=== PATIENT | female | born 1940 | race Caucasian/White ===

== ENCOUNTER 2017-09-07 16:32 | Outpatient (CLI) | payer MEDICARE | END 2017-09-07 16:33 | disposition home or self-care (01) | LOC: BICMAMMO 16:32 | PROVIDERS: ATTEND Family Medicine | DX: Z12.31 Encounter for screening mammogram for malignant neoplasm of breast (principal) | CPT/HCPCS: 77063; 77067 ==

== ENCOUNTER 2018-01-05 13:19 | Outpatient (CLI) | payer MEDICARE | END 2018-01-05 13:20 | disposition home or self-care (01) | LOC: BICMRI 13:19 | PROVIDERS: ATTEND Orthopaedic Surgery | DX: M51.36 Other intervertebral disc degeneration, lumbar region (principal); M48.061 Spinal stenosis, lumbar region without neurogenic claudication; M43.8X4 Other specified deforming dorsopathies, thoracic region; M46.96 Unspecified inflammatory spondylopathy, lumbar region | CPT/HCPCS: 72148 ==

== ENCOUNTER 2018-01-14 13:12 | Emergency (ER) | payer MEDICARE ==
--- NOTE | 2018-01-14 14:18 | RAD ---
SINGLE VIEW OF THE CHEST: Comparison: 02-06-10 History: Pre-operative radiograph. FINDINGS: Single view of the chest shows a normal sized cardiomediastinal silhouette. There is no evidence of c onsolidation, mass, or pleural effusion. Bone anchors are seen in the right shoulder from prior right shoulder surgery. IMPRESSION: No evidence of acute cardiopulmonary disease. POS: LILLIANH
[2018-01-14 14:20] LABS: #Basophils 0.1 thou/uL (0.0-0.2); #Eosinphils 0.2 thou/uL (0.0-0.7); #Lymphocytes 2.4 thou/uL (1.20-3.40); #Monocytes 0.6 thou/uL (0.11-0.59); #Neutrophils 3.9 thou/uL (1.40-6.50); %Basophils 0.7 % (0.0-1.0); %Eosinophils 3.4 % (0.0-10.0); %Lymphocytes 33.3 % (21.0-51.0); %Monocytes 7.7 % (0.0-10.0); %Neutrophils 54.9 % (42.0-75.0); Hemoglobin 13.5 g/dL (12.0-16.0); Mean Corpuscular HGB CONC 34.1 g/dL (32.0-36.0); Mean Corpuscular Hemoglobin 31.5 pg (27.0-31.0); Mean Corpuscular Volume 92.3 fl (81.0-99.0); Mean Platelet Volume 7.2 fL (7.4-10.4); Platelet Count 210 thou/uL (130-400); RBC Distribution Width 11.5 % (11.5-14.5); Red Blood Cell (RBC) Count 4.28 mill/uL (4.20-5.40); White Blood Cell (WBC) Count 7.1 thou/uL (4.8-10.8)
[2018-01-14 14:43] LABS: ALT (SGPT) 8 U/L (8-55); AST (SGOT) 19 U/L (5-34); Albumin 3.6 g/dL (3.4-4.8); Alkaline Phosphatase 58 U/L (40-150); Anion Gap 16 mmol/L (10-20); BUN (Urea Nitrogen) 24 mg/dL (9.8-20.1); Bilirubin, Total 0.6 mg/dL (0.2-1.2); Calc. Creatinine Clearance 0 mL/min (70-130); Calcium 9.7 mg/dL (7.8-10.44); Carbon Dioxide 27 mmol/L (23-31); Chloride 101 mmol/L (98-107); Estimated GFR-MDRD 32; Globulin 3.5 g/dL (2.4-3.5); Glucose 104 mg/dL (83-110); Potassium 4.7 mmol/L (3.5-5.1); Protein, Total 7.1 g/dL (6.0-8.3); Sodium 139 mmol/L (136-145)
[2018-01-14 15:33] LABS: Bilirubin Negative (Negative); Blood, Urine Negative (Negative); Clarity CLOUDY (Clear); Glucose, Urine (Dipstick) Negative (Negative); Leukocyte Small (Negative); Nitrite Negative (Negative); Protein, Urine (Dipstick) Negative (Neg-Trace); Specific Gravity, Urine 1.011 (1.002-1.036); Urobilinogen 0.2 mg/dL (0.2-1.0); pH, Urine 5.5 (5.0-9.0)
[2018-01-14 15:35] LABS: Bacteria/HPF 2+ HPF (None Seen); Hyaline Casts/LPF 0-3 HYALINE CAST LPF (0-3 Hyaline); Pathc Cast-AUWi Flag 0.72 (0-2.49); RBC/HPF 0-3 HPF (0-3); Squamous Epithelial 0-3 HPF (0-3)
== END 2018-01-14 16:15 | disposition home or self-care (01) ==
LOC: ERS 13:12
DX: N39.0 Urinary tract infection, site not specified (principal); E10.9 Type 1 diabetes mellitus without complications
CPT/HCPCS: 36415; 71045; 80053; 81003; 81015; 85025; 87077; 87086

== ENCOUNTER 2018-07-29 14:52 | Outpatient (CLI) | payer MEDICARE ==
--- NOTE | 2018-07-29 15:42 | RAD ---
CERVICAL SPINE SERIES THREE VIEWS: 07/29/18 HISTORY: Neck pain, cervical radiculopathy. The bones appear demineralized. Vertebral bodies are normal in height. There appears to be mild disc narrowing at C6-7. There are degenerative facet changes. No soft tissue swelling noted. Postoperative changes are noted with surgical clips along the right side of the neck. IMPRESSION: Generalized bone demineralization. Mild arthritic changes of the cervical spine. POS: Christofer
--- NOTE | 2018-07-29 15:43 | RAD ---
LUMBAR SPINE SERIES 2 VIEWS: HISTORY: Fall, back pain, balance difficulties. FINDINGS: The bones are demineralized. There are compression changes involving the superior end plate of T12 w ith approximately 40% compression. There is very minimal bony retropulsion of the posterior superior margin of the vertebral body associated with this. The lumbar vertebral bodies are normal in height . Moderate disk narrowing at the L4-5 level is noted and associated with approximately 8 mm spondylo listhesis. There are degenerative facet changes present. Mild disk narrowing is seen at L5-S1. IMPRESSION: 1. Compression changes involving the superior end plate of T12 and also some minimal changes of T11. In reviewing the MRI study of 01/05/2018, this appears fairly stable in appearance. 2. Arthritic changes of the lower lumbar spine with moderate disk narrowing at L4-5 and approximatel y 8 mm of spondylolisthesis. POS: [facility]
--- NOTE | 2018-07-29 16:30 | MRI ---
CERVICAL SPINE MRI NONCONTRAST: 07/29/18 HISTORY: Cervical radiculopathy. Reference made to 03/28/10 exam. FINDINGS: Multilevel cervical spine disc degenerative disease is present. There is degenerative hypertrophy of the C1-2 level. Motion artifact throughout the exam does limit the evaluation. No acute marrow edema, compression deformity or significant subluxation. No high grade central canal stenosis at C1-2. C2-3: Mild narrowing of the left neural foramen due to uncinate process and facet hypertrophy. No sig nificant stenosis of the central canal or right neural foramen. C3-4: There is a disc osteophyte with mild to moderate central canal stenosis and mild ventral cord e ffacement. There is bilateral uncinate process and facet hypertrophy with mild bilateral neural roe inal narrowing. C4-5: Mild to moderate central canal stenosis, mild ventral flattening due to broad based disc osteop hyte. There is bilateral uncinate process and facet hypertrophy with mild to moderate bilateral neura l foraminal narrowing. C5-6: Moderate to severe central canal stenosis is present due to broad based osteophyte ridge. There is bilateral moderate to severe neural foraminal stenosis. C6-7: Broad based osteophyte with mild central canal stenosis. There is mild ventral cord effacement. Bilateral uncinate process and facet hypertrophy results in moderate biforaminal stenosis. C7-T1: There is mild ventral CSF effacement due to disc osteophyte. Limited evaluation due to patient motion at this level without a significant degree of foraminal stenosis, evident. Evaluation of the cervical spinal cord signal is limited by the degree of patient motion, although no definitive focal intrinsic cord signal abnormality of significance is seen. IMPRESSION: Moderate multilevel degenerative change throughout the cervical spine with multilevel central canal a nd neural foraminal stenosis as well as areas of cord effacement as discussed above. When compared to 2010 exam, there has been interval progression of degenerative change. POS: [facility]
--- NOTE | 2018-07-29 16:38 | MRI ---
MRI THORACIC SPINE NONCONTRAST: 07/29/18 HISTORY: Falls. Back pain with radiculopathy. FINDINGS: There is desiccation of all the intervertebral discs and scattered discogenic end plate changes. Prom inent degenerative changes of the cervical spine are detailed on the separate exam. Throughout the thoracic spine from the T1-2 level to the T9-10 level, there is mild osteophytosis of the vertebral bodies and facets. No focal disc herniation or nerve root compression. T10-11: Chronic mild depression of the T11 superior end plate and compression of the T10 inferior end plate. Discogenic end plate changes are most pronounced at this level. Posterior osteophyte/disc com plex and mild retropulsion of the T11 superior end plate efface the ventral aspect of the thecal sac but do not significantly compress the conus medullaris. The neural foramina remain patent. T11-12: Minimal degenerative spondylolisthesis. Chronic compression of the T 12 superior end plate wi th loss of height by approximately 40%. No residual edema. Mild posterior osteophyte/disc complex. De generative changes of the facets. Central canal and neural foramina are patent. IMPRESSION: Mild chronic end plate compressions involving T10, T11, and T12, as detailed above. No residual edema . Multilevel mild degenerative changes without focal disc herniation or nerve root compression. POS: [facility]
== END 2018-07-29 14:53 | disposition home or self-care (01) ==
LOC: TBSIIMAG 14:52
PROVIDERS: ATTEND Surgery
DX: M47.22 Other spondylosis with radiculopathy, cervical region (principal); R29.6 Repeated falls; R26.89 Other abnormalities of gait and mobility; M47.816 Spondylosis without myelopathy or radiculopathy, lumbar region; M43.16 Spondylolisthesis, lumbar region; M48.061 Spinal stenosis, lumbar region without neurogenic claudication; M47.814 Spondylosis without myelopathy or radiculopathy, thoracic region; M48.02 Spinal stenosis, cervical region
CPT/HCPCS: 72040; 72100; 72141; 72146

== ENCOUNTER 2018-11-24 09:04 | Outpatient (CLI) | payer MEDICARE ==
[2018-11-24] MEDS ORDERED: Iopamidol 370 76% 100 ML VIAL ONE (11:01)
--- NOTE | 2018-11-24 13:14 | CT ---
CT arteriogram abdomen and pelvis with IV contrast and 3-D imaging CT arteriogram runoff bilateral lower extremity with IV contrast and 3-D imaging HISTORY: Bilateral leg pain. Claudication. Vascular disease. FINDINGS: Prominent calcification throughout the aorta and central arterial structures. Less than 50% stenosis of each renal artery. Flow into each iliac system. Scattered plaque, mostly calcified, is present along the course of each femoral artery. No focal sten oses greater than 50%. Three-vessel runoff to each lower leg. Mild atelectasis and scarring at each lung base. Degenerative changes lumbar spine and hips. Postoper ative changes lower anterior abdominal wall. IMPRESSION: Atherosclerosis. No significant stenoses are apparent.
== END 2018-11-24 09:05 | disposition home or self-care (01) ==
LOC: CT 09:04
PROVIDERS: ATTEND Family Medicine
DX: I73.9 Peripheral vascular disease, unspecified (principal); I70.0 Atherosclerosis of aorta
CPT/HCPCS: 75635; 82565; Q9967

== ENCOUNTER 2020-04-21 13:27 | Inpatient (IN) | payer MEDICARE ==
[2020-04-21] MEDS ORDERED: Cefepime 2 GM VIAL ONE (14:16)
[2020-04-21] MEDS ORDERED: Sodium Chloride 0.9% 100 ML ONE (14:16)
[2020-04-21 14:18] LABS: Base Excess-Venous 1.5 mmol/L (-2.0 to 3.0); Bicarbonate (HCO3v) 26.3 mmol/L (22.0-28.0); CO2 Tension (PvCO2) 41.4 mmHg (40.0-50.0); Calcium, Ionized 1.05 mmol/L (See Comments:); Chloride 102 mmol/L (98-107); Hemoglobin - Calc 13.6 g/dL (12.0-16.0); Potassium 4.4 mmol/L (3.5-5.1); Sodium 138 mmol/L (138-145); T. Carbon Dioxide 27.6 mmol/L (22.0-28.0); vO2 Saturation-calc 72.5 % (60.0-85.0)
[2020-04-21 14:27] LABS: #Lymphocytes 1.3 thou/uL (1.20-3.40); #Monocytes 0.5 thou/uL (0.11-0.59); #Neutrophils 6.1 thou/uL (1.40-6.50); %Basophils 0.3 % (0.0-1.0); %Eosinophils 0.4 % (0.0-10.0); %Lymphocytes 16.6 % (21.0-51.0); %Monocytes 6.1 % (0.0-10.0); %Neutrophils 76.5 % (42.0-75.0); Mean Corpuscular HGB CONC 33.3 g/dL (32.0-36.0); Mean Corpuscular Hemoglobin 30.5 pg (27.0-31.0); Mean Corpuscular Volume 91.7 fL (78.0-98.0); Mean Platelet Volume 8.6 fL (7.4-10.4); Platelet Count 161 thou/uL (130-400); Red Blood Cell (RBC) Count 4.26 mill/uL (4.20-5.40)
--- NOTE | 2020-04-21 14:31 | RAD ---
EXAM: CHEST ONE VIEW HISTORY: Altered mental status. COMPARISON: 01/14/2018 FINDINGS: Patient is rotated to the right which accentuates cardiac silhouette and mediastinal structures. Pulm onary vasculature does appear to be within normal limits. Lungs are clear without consolidation or pleural fluid identified. Surgical clips again overlie the right neck. There has been no interval edwin nge from prior study. IMPRESSION: No acute cardiopulmonary process.
[2020-04-21 14:46] LABS: ALT (SGPT) 11 U/L (8-55); AST (SGOT) 21 U/L (5-34); Albumin 3.2 g/dL (3.4-4.8); Alkaline Phosphatase 55 U/L (40-110); Anion Gap 16 mmol/L (10-20); BUN (Urea Nitrogen) 19 mg/dL (9.8-20.1); Bilirubin, Total 0.5 mg/dL (0.2-1.2); Calc. Creatinine Clearance 0 mL/min (70-130); Calcium 9.2 mg/dL (7.8-10.44); Carbon Dioxide 24 mmol/L (23-31); Chloride 100 mmol/L (98-107); Estimated GFR-MDRD 57; Globulin 3.3 g/dL (2.4-3.5); Glucose 67 mg/dL (83-110); Lipase 13 U/L (8-78); Potassium 4.3 mmol/L (3.5-5.1); Protein, Total 6.5 g/dL (6.0-8.3); Sodium 136 mmol/L (136-145)
[2020-04-21] MEDS ORDERED: Dextrose 50% Abboject 50 ML SYRINGE ONE ×2 (15:46→19:11)
[2020-04-21] MEDS ORDERED: Vancomycin 1.5 GRAM/300 ML BAG 1.5 GM in Premix Bag 1 BAG IVPB SCH (16:00)
[2020-04-21 17:23] LABS: Lactic Acid 2.1 mmol/L (0.5-2.2)
--- NOTE | 2020-04-21 17:27 | CT ---
NONCONTRAST CT HEAD: 04/21/20 HISTORY: Altered mental status. COMPARISON: None. FINDINGS: There are scattered areas of diminished attenuation in the periventricular white matter, greater in t he right cerebral hemisphere which is nonspecific but likely attributable to chronic small vessel isc hemic changes. There is no evidence of an acute cortical infarction, hemorrhage, mass effect, or midl ine shift. Small low density focus is seen in the left thalamus likely attributable to a lacunar infa rction of indeterminate age. The ventricular system is normal in size, shape and position. Mild cerebral volume loss is present no t unexpected for the patient's age. There is a small low density focus in the left cerebellar hemisph ere likely related to remote infarction. Small mucous retention cyst is seen in the right maxillary antrum. Mastoid air cells are clear. Calvarial structures have a normal appearance. IMPRESSION: No acute intracranial abnormality is demonstrated. POS: [facility]
[2020-04-21 17:51] LABS: Bilirubin Negative (Negative); Blood, Urine Negative (Negative); Clarity Clear (Clear); Glucose, Urine (Dipstick) 500 mg/dL (Negative); Ketone, Urine Negative (Negative); Leukocyte Negative Leu/uL (Negative); Nitrite Negative (Negative); Protein, Urine (Dipstick) Negative (Neg-Trace); Specific Gravity, Urine 1.004 (1.002-1.036); Urobilinogen Normal mg/dL (Less than 2)
[2020-04-21] MEDS ORDERED: Acetaminophen 325 MG TAB PO PRN (20:15)
[2020-04-21 20:32] VITALS: BMI 30.3
[2020-04-21] MEDS ORDERED: hydrALAZINE 20 MG/ML VIAL SLOW IVP PRN (20:38)
[2020-04-21] MEDS ORDERED: Dextrose 5% in Water 1,000 ML IV PRN (20:38)
[2020-04-21] MEDS ORDERED: Dextrose 5 % And 0.9 % NaCl 1,000 ML IV SCH (20:38)
[2020-04-21] MEDS ORDERED: Ondansetron ODT 4 MG TAB SL PRN (20:38)
[2020-04-21] MEDS ORDERED: Ondansetron PF 4 MG/2 ML Vial IVP PRN (20:38)
[2020-04-21] MEDS ORDERED: Acetaminophen 500 MG TAB PO PRN (20:38)
[2020-04-21] MEDS: Famotidine 20 MG TAB PO SCH (21:45)
[2020-04-21] MEDS: Polyvinyl Alcohol 1.4%/Povidone 0.6% Opth Drops EA EYE PRN (23:57)
[2020-04-22] MEDS: Dextrose 50% Abboject 50 ML SYRINGE SLOW IVP PRN ×7 (00:11→13:50)
--- NOTE | 2020-04-22 00:46 | HP ---
PRIMARY CARE PROVIDER: Dr. Erick Donovan. CHIEF COMPLAINT: Hypoglycemia and altered mental status. HISTORY OF PRESENT ILLNESS: This is a 79-year-old female, who presents to [facility] Emergency Department in transport by EMS personnel after EMS was notified of patient having altered mentation, abdominal pain, and nausea. Patient apparently was discovered with a blood glucose of 17 and received an amp of D50. Patient also received D10 infusion, at which point, the glucose increased over 200. Patient received a second bag of D10 after glucose monitoring showed a level in the 60s. Patient recovered with glucose administration and was able to tolerate p.o. intake. in the emergency room. The patient also received vancomycin and cefepime in the emergency room after initial concern for potential sepsis picture. However, no focal source was identified. Patient also was initiated on D5 NS infusion with stabilization of glucose values in the emergency room. Patient states she has had approximately two other previous episodes involving altered mentation and feeling generally "out of it." Patient denies any recent change to her insulin regimen which includes an insulin 75/25 mixture 62 units in the morning and 42 units in the evening. Patient denied any recent illness, fever, exposure history, or infections to her knowledge. Patient denied any recent diarrhea, nausea, or vomiting. PAST MEDICAL HISTORY: 1. Diabetes mellitus, type 2, insulin requiring, diagnosed in her 20s. 2. Coronary artery disease, status post cardiac stent placement. 3. Urinary incontinence. 4. Hypertension. 5. Hyperlipidemia. 6. Hypothyroidism. 7. Peripheral neuropathy. PAST SURGICAL HISTORY: 1. Status post cardiac stent placement. 2. Status post right knee surgery. 3. Status post ear surgery. 4. Status post dilation and curettage. 5. Status post appendectomy. 6. Status post hysterectomy. 7. Status post bladder suspension. CURRENT MEDICATIONS: 1. Ranolazine 1000 mg p.o. b.i.d. 2. Myrbetriq 25 mg p.o. daily. 3. Omeprazole 20 mg p.o. daily. 4. Hydroxyzine 25 mg p.o. t.i.d. p.r.n. 5. Losartan 5 mg p.o. daily. 6. Rosuvastatin mg p.o. daily. 7. Isosorbide mononitrate 30 mg p.o. daily. 8. Fenofibrate 180 mg p.o. daily. 9. Metoprolol tartrate 50 mg p.o. daily. 10. Levothyroxine 100 mcg p.o. daily. 11. Gabapentin 300 mg one to two tablets p.o. daily. 12. Humulin 75/25, 62 units in the a.m. and 42 units at bedtime. ALLERGIES: CODEINE, MORPHINE, AND PENICILLIN. FAMILY HISTORY: Positive for coronary artery disease and diabetes mellitus. SOCIAL HISTORY: and resides in the [facility]. No current alcohol, tobacco, or illicit drug use. Functional of all activities of daily living. REVIEW OF SYSTEMS: CONSTITUTIONAL: Negative for weight loss or gain, ability to conduct usual activities. SKIN: Negative for rash, itching. EYES: Negative for double vision, pain. ENT/MOUTH: Negative for nose bleeding, neck stiffness, pain, tenderness. CARDIOVASCULAR: Negative for palpitations, dyspnea on exertion, orthopnea. RESPIRATORY: Negative for shortness of breath, wheezing, cough, hemoptysis, fever or night sweats. GASTROINTESTINAL: Negative for poor appetite, abdominal pain, heartburn, nausea, vomiting, constipation, or diarrhea. GENITOURINARY: Negative for urgency, frequency, dysuria, nocturia. MUSCULOSKELETAL: Negative for pain, swelling. NEUROLOGIC/PSYCHIATRIC: Negative for anxiety, depression. ALLERGY/IMMUNOLOGIC: Negative for skin rash, bleeding tendency. Otherwise, negative, except as stated per HPI. PHYSICAL EXAMINATION: VITAL SIGNS: Blood pressure 131/51, pulse 66, respiratory rate is 14, temperature is 95.7 degrees Fahrenheit rectally, and O2 saturation 100% on room air. GENERAL APPEARANCE: This is a 79-year-old female, alert and responsive, in no acute distress. HEENT: Pupils are equal, round, and reactive to light and accommodation. Extraocular muscles are intact. No scleral icterus. No conjunctival injection. Nares are patent. OP is clear. Oral mucosa dry. NECK: Supple. No cervical adenopathy. No thyromegaly. No carotid bruits. No JVD appreciated. Cervical spine with full active and passive range of motion. No meningeal signs noted. CHEST: Lungs are clear to auscultation bilaterally. CARDIOVASCULAR EXAM: S1, S2 without noted murmur, rub, or gallop. ABDOMEN: Rounded, soft, nontender, and nondistended. Bowel sounds are positive in all 4 quadrants. There is no hepatosplenomegaly. No abdominal bruits. No rebound or guarding appreciated. EXTREMITIES: Warm and dry with fair turgor. No clubbing, cyanosis, or asymmetric edema appreciated. Pulses palpable distally at the dorsalis pedis, posterior tibial, and popliteal arteries bilaterally. Capillary refill less than 2 seconds. NEUROLOGIC: Cranial nerves 2 through 12 are grossly intact. No focal or lateralizing signs appreciated. Patient not observed ambulatory during this exam. PERTINENT LABORATORY AND X-RAY FINDINGS: Portable chest x-ray dated 04/21/2020 showed no acute cardiopulmonary process. CT of the brain without contrast dated 04/21/2020 showed chronic changes without acute process. EKG dated 04/21/2020 by my interpretation shows sinus mechanism with heart rates in the 60s. Normal R-wave progression noted in the precordial leads. Left axis deviation and right bundle-branch pattern noted. ASSESSMENT/PLAN: 1. Acute metabolic encephalopathy secondary to hypoglycemia. Patient will be admitted to the telemetry unit. We will continue serial Accu-Cheks q.4 hours. Suspect patient's insulin regimen will be adjusted during the hospital course. Check A1c level in the a.m. Patient may benefit from continuous glucose monitor after discharge. Check TSH and free T4 level in the a.m. 2. Diabetes mellitus, type 2, insulin requiring. We will continue serial Accu-Cheks q.4 hours x6. ADA diet when tolerating p.o. intake. Check A1c level in the a.m. Hold home insulin regimen. Consider outpatient referral for Endocrinology consultation. 3. Hypothyroidism. Check TSH and free T4 level in the a.m. Resume home levothyroxine at 100 mcg daily. 4. Hypertension. Resume home blood pressure regimen and monitor clinical response. 5. Prophylaxis. SCDs while in bed. Pepcid 20 mg p.o. b.i.d. 6. Code status. Full. Surrogate medical decision maker is the patient's spouse. Job ID: [id number]
[2020-04-22] MEDS ORDERED: Cefepime 2 GM in Sodium Chloride 0.9% 100 ML IVPB SCH (02:00)
[2020-04-22 04:06] LABS: #Eosinphils 0.2 thou/uL (0.0-0.7); #Lymphocytes 2.3 thou/uL (1.20-3.40); #Monocytes 0.5 thou/uL (0.11-0.59); #Neutrophils 3.3 thou/uL (1.40-6.50); %Basophils 0.1 % (0.0-1.0); %Eosinophils 3.7 % (0.0-10.0); %Lymphocytes 36.9 % (21.0-51.0); %Monocytes 7.5 % (0.0-10.0); %Neutrophils 51.9 % (42.0-75.0); Hemoglobin 10.9 g/dL (12.0-16.0); Mean Corpuscular HGB CONC 32.8 g/dL (32.0-36.0); Mean Corpuscular Hemoglobin 30.3 pg (27.0-31.0); Mean Corpuscular Volume 92.6 fL (78.0-98.0); Mean Platelet Volume 9.1 fL (7.4-10.4); Platelet Count 136 thou/uL (130-400); RBC Distribution Width 11.2 % (11.5-14.5); Red Blood Cell (RBC) Count 3.59 mill/uL (4.20-5.40); White Blood Cell (WBC) Count 6.3 thou/uL (4.8-10.8)
[2020-04-22 04:15] LABS: Hemoglobin A1c 7.8 % (4.0-6.0)
[2020-04-22 04:32] LABS: Anion Gap 11 mmol/L (10-20); BUN (Urea Nitrogen) 14 mg/dL (9.8-20.1); Calc. Creatinine Clearance 68 mL/min (70-130); Calcium 8.4 mg/dL (7.8-10.44); Carbon Dioxide 24 mmol/L (23-31); Chloride 111 mmol/L (98-107); Estimated GFR-MDRD 69; Glucose 69 mg/dL (83-110); Potassium 4.3 mmol/L (3.5-5.1); Sodium 142 mmol/L (136-145)
[2020-04-22 04:46] LABS: Thyroid Stimulating Hormone 0.0044 uIU/mL (0.35-4.94)
[2020-04-22 05:10] LABS: Free T4 (Free Thyroxine) 1.28 ng/dL (0.70-1.48)
[2020-04-22] MEDS ORDERED: Dextrose 10% in Water 1,000 ML IV SCH (06:00)
[2020-04-22] MEDS ORDERED: methylPREDNISolone Sod Succ/PF 125 MG/2 ML VIAL IVP SCH (08:15)
[2020-04-22] MEDS: Famotidine 20 MG TAB PO SCH ×2 (08:47→20:38)
--- NOTE | 2020-04-22 10:34 | PDOC.HOSPP ---
- Subjective Encounter Date: 04/22/20 Encounter Time: 10:25 Subjective: f/u for hypoglycemia suspected due to home insulin regimen. Nursing reports pt received several amps of D50 overnight and continues on D10NS IVF's. Some confusion and trembling reported by nursing but pt states she just has some tremors on the right hand and feels week. Tolerating breakfast currently. - Objective Vital Signs & Weight: Vital Signs (12 hours) Temp Pulse Resp BP Pulse Ox 04/22/20 03:17 97.9 F 73 20 127/57 L 97 04/22/20 00:00 92 188/100 H Weight Weight 165 lb 14.4 oz I&O: 04/21/20 04/22/20 04/23/20 06:59 06:59 06:59 Intake Total 1700 Output Total 1000 Balance 700 Result Diagrams: 04/22/20 03:40 04/22/20 03:40 Additional Labs: Accuchecks 04/22/20 04/21/20 04/21/20 07:16 20:17 19:44 POC Glucose 68 L 164 H 189 H 04/21/20 04/21/20 18:03 13:45 POC Glucose 62 L 121 H Microbiology 04/21/20 14:14 Venous blood - Right Arm Blood Culture - Preliminary Specimen has been received and culture in progress. No Growth to date. 04/21/20 14:14 Venous blood - Left Hand Blood Culture - Preliminary Specimen has been received and culture in progress. No Growth to date. Laboratory Tests 04/21/20 04/22/20 04/22/20 14:10 03:40 03:40 Hgb 13.0 Hct 39.1 Neutrophils % 76.5 H Hemoglobin A1c 7.8 H Free T4 1.28 TSH 3rd Generation 0.0044 L 04/22/20 03:40 Hgb Hct Neutrophils % 51.9 Hemoglobin A1c Free T4 TSH 3rd Generation Radiology Reviewed by me: Yes (CT brain - no acute process) EKG Reviewed by me: Yes (Tele - SR) Hospitalist ROS - Medication Medications: Active Medications Generic Name Dose Route Start Last Admin Trade Name Freq PRN Reason Stop Dose Admin Dextrose/Water 25 gm 04/21/20 20:38 04/22/20 08:41 Dextrose 50% Abboject 50 Ml Syringe SLOW IVP 25 gm PRN PRN Administration Hypoglycemia Famotidine 20 mg 04/21/20 21:00 04/22/20 08:47 Famotidine 20 Mg Tab PO 20 mg BID NICHOLE Administration Dextrose/Water 1,000 mls @ 75 mls/hr 04/22/20 06:00 04/22/20 06:06 Dextrose 10% In Water IV 1,000 mls .[id number] NICHOLE Administration Methylprednisolone Sodium Succinate 125 mg 04/22/20 08:15 04/22/20 08:43 Methylprednisolone Sod Succ/Pf 125 Mg/2 Ml Vial IVP 04/22/20 11:00 125 mg NOW NICHOLE Administration Polyvinyl Alcohol/Povidone 0 each 04/21/20 22:14 04/21/20 23:57 Polyvinyl Alcohol 1.4%/Povidone 0.6% Opth Drops EA EYE 1 each Q4H PRN Administration Dry Eyes - Exam General Appearance: awake alert Eye: PERRL, anicteric sclera ENT: normocephalic atraumatic, no oropharyngeal lesions Neck: supple, symmetric, no JVD, no thyromegaly, no lymphadenopathy Heart: RRR, no gallops, no rubs, normal peripheral pulses Heart - other findings: S1, S2 Respiratory: CTAB, no wheezes, no rales, no ronchi, normal chest expansion Gastrointestinal: soft, non-tender, non-distended, normal bowel sounds, no palpable masses Extremities: no cyanosis, no clubbing, no edema Skin: normal turgor, no lesions Neurological: cranial nerve grossly intact, no new deficit Neurological - other findings: tremor of hands noted Musculoskeletal: generalized weakness Psychiatric: oriented to person, oriented to place Hosp A/P (1) Hypoglycemia Code(s): E16.2 - HYPOGLYCEMIA, UNSPECIFIED Status: Acute Plan: Suspected due to insulin exposure in context of DM II, Solumedrol 125mg IV x 1 now then 40mg IV q6h, avoid all insulin, serial accuchecks, D10 NS IVF's (2) Acute metabolic encephalopathy due to hypoglycemia Code(s): G93.41 - METABOLIC ENCEPHALOPATHY; E16.2 - HYPOGLYCEMIA, UNSPECIFIED Status: Acute Plan: Improved, continue close monitoring given recurrent hypoglycemia (3) Diabetes mellitus, type II, insulin dependent Code(s): E11.9 - TYPE 2 DIABETES MELLITUS WITHOUT COMPLICATIONS; Z79.4 - CORN CUTTER (CURRENT) USE OF INSULIN Status: Chronic Plan: Hold all insulin given hypoglycemia, serial accuchecks, adjust home regimen prior to d/c (4) HTN (hypertension) Code(s): I10 - ESSENTIAL (PRIMARY) HYPERTENSION Status: Chronic Qualifiers: Hypertension type: essential hypertension Qualified Code(s): I10 - Essential (primary) hypertension Plan: Labile, resume home BP regimen, serial monitoring (5) Hypothyroid Code(s): E03.9 - HYPOTHYROIDISM, UNSPECIFIED Status: Chronic Plan: TSH suppressed but FT4 level normal, resume home Synthroid - Plan 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
[2020-04-22 11:40] LABS: Anion Gap 14 mmol/L (10-20); BUN (Urea Nitrogen) 12 mg/dL (9.8-20.1); Calc. Creatinine Clearance 64 mL/min (70-130); Calcium 8.7 mg/dL (7.8-10.44); Carbon Dioxide 21 mmol/L (23-31); Chloride 108 mmol/L (98-107); Estimated GFR-MDRD 65; Potassium 4.2 mmol/L (3.5-5.1); Sodium 139 mmol/L (136-145)
[2020-04-22 11:44] LABS: Glucose 47 mg/dL (83-110)
[2020-04-22] MEDS: methylPREDNISolone Sod Succ 40 MG VIAL IVP SCH ×3 (12:05→23:56)
[2020-04-22 12:26] LABS: SARS-CoV-2 MS2 Positive; SARS-CoV-2 N Gene Negative; SARS-CoV-2 S Gene Negative; SARS-CoV-2 by NAA Not Detected (NotDetected); SARS-CoV-2 orf1ab Negative
[2020-04-22] MEDS ORDERED: Losartan 25 MG TAB PO SCH (12:30)
[2020-04-22] MEDS: hydrOXYzine 25 MG TAB PO SCH ×2 (17:19→20:38)
[2020-04-22] MEDS: Dextrose 10% in Water 1,000 ML IV SCH (17:20)
[2020-04-22] MEDS: Gabapentin 300 MG CAP PO SCH (20:39)
[2020-04-22] MEDS: Polyvinyl Alcohol 1.4%/Povidone 0.6% Opth Drops EA EYE PRN (20:39)
[2020-04-22] MEDS: HumaLOG 300 UNITS/3 ML VIAL SC PRN ×2 (20:52→22:00)
[2020-04-23] MEDS: Dextrose 10% in Water 1,000 ML IV SCH (04:01)
[2020-04-23] MEDS: HumaLOG 300 UNITS/3 ML VIAL SC PRN ×4 (04:05→20:16)
[2020-04-23 04:53] LABS: Anion Gap 15 mmol/L (10-20); BUN (Urea Nitrogen) 13 mg/dL (9.8-20.1); Calc. Creatinine Clearance 51 mL/min (70-130); Calcium 8.6 mg/dL (7.8-10.44); Carbon Dioxide 25 mmol/L (23-31); Chloride 102 mmol/L (98-107); Estimated GFR-MDRD 50; Glucose 257 mg/dL (83-110); Potassium 4.6 mmol/L (3.5-5.1); Sodium 137 mmol/L (136-145)
[2020-04-23 05:21] LABS: #Lymphocytes 1.2 thou/uL (1.20-3.40); #Monocytes 0.1 thou/uL (0.11-0.59); #Neutrophils 6.9 thou/uL (1.40-6.50); %Eosinophils 0.3 % (0.0-10.0); %Lymphocytes 14.6 % (21.0-51.0); %Monocytes 1.2 % (0.0-10.0); %Neutrophils 83.9 % (42.0-75.0); Hemoglobin 10.8 g/dL (12.0-16.0); Mean Corpuscular HGB CONC 32.3 g/dL (32.0-36.0); Mean Corpuscular Hemoglobin 29.7 pg (27.0-31.0); Mean Corpuscular Volume 92.2 fL (78.0-98.0); Mean Platelet Volume 9.5 fL (7.4-10.4); Platelet Count 114 thou/uL (130-400); Platelet Morphology Comment Appears Decreased; RBC Distribution Width 11.1 % (11.5-14.5); Red Blood Cell (RBC) Count 3.62 mill/uL (4.20-5.40); White Blood Cell (WBC) Count 8.3 thou/uL (4.8-10.8)
[2020-04-23] MEDS: Levothyroxine Sodium 100 MCG TAB PO SCH (05:42)
[2020-04-23] MEDS: methylPREDNISolone Sod Succ 40 MG VIAL IVP SCH (05:42)
[2020-04-23] MEDS: Metoprolol Tartrate 50 MG TAB PO SCH (08:37)
[2020-04-23] MEDS: Famotidine 20 MG TAB PO SCH ×2 (08:37→20:12)
[2020-04-23] MEDS: Polyvinyl Alcohol 1.4%/Povidone 0.6% Opth Drops EA EYE PRN (08:39)
[2020-04-23] MEDS: hydrOXYzine 25 MG TAB PO SCH ×3 (08:43→20:13)
[2020-04-23] MEDS: Losartan 25 MG TAB PO SCH (08:43)
--- NOTE | 2020-04-23 11:12 | PDOC.HOSPP ---
- Subjective Encounter Date: 04/23/20 Encounter Time: 11:10 Subjective: f/u for persistent hypoglycemia now resolving. Glucose trending in the 200 range currently receiving D10 NS and Solumedrol. No new complaints currently. - Objective Vital Signs & Weight: Vital Signs (12 hours) Temp Pulse Ox 04/23/20 11:03 98.0 F 04/23/20 08:00 95 04/23/20 07:18 97.8 F 04/23/20 04:00 97 F L 04/22/20 23:59 97.2 F L Weight Weight 165 lb 14.4 oz Most Recent Monitor Data Heart Rate from ECG 73 NIBP 144/51 NIBP BP-Mean 82 Respiration from ECG 20 SpO2 99 I&O: 04/22/20 04/23/20 04/24/20 06:59 06:59 06:59 Intake Total 1700 2400 Output Total 1000 1300 Balance 700 1100 Result Diagrams: 04/23/20 04:01 04/23/20 04:01 Additional Labs: Accuchecks 04/23/20 04/23/20 04/23/20 10:16 07:58 05:45 POC Glucose 207 H 149 H 332 H 04/23/20 04/23/20 04/23/20 04:09 02:13 00:02 POC Glucose 257 H 168 H 138 H 04/22/20 04/22/20 04/22/20 22:00 18:33 15:45 POC Glucose 320 H 141 H 105 H Microbiology 04/21/20 14:14 Venous blood - Right Arm Blood Culture - Preliminary Specimen has been received and culture in progress. No Growth to date. 04/21/20 14:14 Venous blood - Left Hand Blood Culture - Preliminary Specimen has been received and culture in progress. No Growth to date. Laboratory Tests 04/21/20 04/22/20 04/22/20 14:10 03:40 03:40 Hgb 13.0 Hct 39.1 Neutrophils % 76.5 H Hemoglobin A1c 7.8 H Free T4 1.28 TSH 3rd Generation 0.0044 L 04/22/20 03:40 Hgb Hct Neutrophils % 51.9 Hemoglobin A1c Free T4 TSH 3rd Generation EKG Reviewed by me: Yes (Tele - SR) Hospitalist ROS - Medication Medications: Active Medications Generic Name Dose Route Start Last Admin Trade Name Freq PRN Reason Stop Dose Admin Dextrose/Water 25 gm 04/21/20 20:38 04/22/20 13:50 Dextrose 50% Abboject 50 Ml Syringe SLOW IVP 25 gm PRN PRN Administration Hypoglycemia Famotidine 20 mg 04/21/20 21:00 04/23/20 08:37 Famotidine 20 Mg Tab PO 20 mg BID NICHOLE Administration Gabapentin 300 mg 04/22/20 21:00 04/22/20 20:39 Gabapentin 300 Mg Cap PO 300 mg HS NICHOLE Administration Hydroxyzine HCl 25 mg 04/22/20 15:00 04/23/20 08:43 Hydroxyzine 25 Mg Tab PO Not Given TID NICHOLE Dextrose/Water 1,000 mls @ 100 mls/hr 04/22/20 16:06 04/23/20 04:01 Dextrose 10% In Water IV 1,000 mls .Q10H NICHOLE Administration Insulin Human Lispro 0 units 04/21/20 20:38 04/23/20 05:42 Humalog 300 Units/3 Ml Vial SC 5 unit .MILD SLIDING SCALE PRN Administration Mild Correctional Scale Isosorbide Mononitrate 30 mg 04/23/20 09:00 04/23/20 08:37 Isosorbide Mononitrate Er 30 Mg Tab PO 30 mg DAILY NICHOLE Administration Levothyroxine Sodium 100 mcg 04/23/20 06:00 04/23/20 05:42 Levothyroxine Sodium 100 Mcg Tab PO 100 mcg 0600 NICHOLE Administration Losartan Potassium 50 mg 04/23/20 09:00 04/23/20 08:43 Losartan 25 Mg Tab PO Not Given DAILY NICHOLE Methylprednisolone Sodium Succinate 40 mg 04/22/20 12:00 04/23/20 05:42 Methylprednisolone Sod Succ 40 Mg Vial IVP 40 mg Q6HR NICHOLE Administration Metoprolol Tartrate 50 mg 04/23/20 09:00 04/23/20 08:37 Metoprolol Tartrate 50 Mg Tab PO 50 mg DAILY NICHOLE Administration Mirabegron 25 mg 04/23/20 09:00 04/23/20 08:41 Mirabegron Er 25 Mg Tab PO 25 mg DAILY NICHOLE Administration Polyvinyl Alcohol/Povidone 0 each 04/21/20 22:14 04/23/20 08:39 Polyvinyl Alcohol 1.4%/Povidone 0.6% Opth Drops EA EYE 2 each Q4H PRN Administration Dry Eyes Ranolazine 1,000 mg 04/22/20 21:00 04/23/20 08:37 Ranolazine 500 Mg Tab PO 1,000 mg BID NICHOLE Administration - Exam General Appearance: NAD, awake alert Eye: PERRL, anicteric sclera ENT: normocephalic atraumatic, no oropharyngeal lesions Neck: supple, symmetric, no JVD, no thyromegaly, no lymphadenopathy Heart: RRR, no murmur, no gallops, no rubs, normal peripheral pulses Heart - other findings: S1, S2 Respiratory: CTAB, no wheezes, no rales, no ronchi, normal chest expansion Gastrointestinal: soft, non-tender, non-distended, normal bowel sounds, no palpable masses Extremities: no cyanosis, no clubbing, no edema Skin: normal turgor, no lesions Neurological: cranial nerve grossly intact, no new deficit Musculoskeletal: normal tone, generalized weakness Psychiatric: normal affect, A&O x 3 Hosp A/P (1) Hypoglycemia Code(s): E16.2 - HYPOGLYCEMIA, UNSPECIFIED Status: Acute Plan: Resolving, d/c D10 infusion, serial accuchecks, d/c Solumedrol (2) Acute metabolic encephalopathy due to hypoglycemia Code(s): G93.41 - METABOLIC ENCEPHALOPATHY; E16.2 - HYPOGLYCEMIA, UNSPECIFIED Status: Acute Plan: Resolved (3) Diabetes mellitus, type II, insulin dependent Code(s): E11.9 - TYPE 2 DIABETES MELLITUS WITHOUT COMPLICATIONS; Z79.4 - HALF-WAY (CURRENT) USE OF INSULIN Status: Chronic Plan: Likely overdosed on insulin, monitor glucose trend, modify home insulin regimen (4) HTN (hypertension) Code(s): I10 - ESSENTIAL (PRIMARY) HYPERTENSION Status: Chronic Qualifiers: Hypertension type: essential hypertension Qualified Code(s): I10 - Essential (primary) hypertension (5) Hypothyroid Code(s): E03.9 - HYPOTHYROIDISM, UNSPECIFIED Status: Chronic - Plan 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
[2020-04-23] MEDS ORDERED: predniSONE 20 MG TAB PO SCH (11:30)
[2020-04-23] MEDS: Gabapentin 300 MG CAP PO SCH (20:13)
[2020-04-24] MEDS: HumaLOG 300 UNITS/3 ML VIAL SC PRN (06:11)
[2020-04-24] MEDS: Levothyroxine Sodium 100 MCG TAB PO SCH (06:13)
[2020-04-24] MEDS: Metoprolol Tartrate 50 MG TAB PO SCH (09:39)
[2020-04-24] MEDS: hydrOXYzine 25 MG TAB PO SCH ×3 (09:39→20:41)
[2020-04-24] MEDS: Famotidine 20 MG TAB PO SCH ×2 (09:40→20:40)
[2020-04-24] MEDS: Losartan 25 MG TAB PO SCH (09:42)
--- NOTE | 2020-04-24 11:28 | PDOC.HOSPP ---
- Subjective Encounter Date: 04/24/20 Encounter Time: 11:25 Subjective: f/u for hypoglycemia with encephalopathy with overall stable glucose trend. Remains off long-acting insulin currently and glucose in the 150's. - Objective Vital Signs & Weight: Vital Signs (12 hours) Temp 04/24/20 07:41 97.6 F 04/24/20 04:11 97.9 F 04/24/20 00:00 98.0 F Weight Weight 165 lb 14.4 oz Most Recent Monitor Data Heart Rate from ECG 75 NIBP 166/54 NIBP BP-Mean 91 Respiration from ECG 20 SpO2 97 I&O: 04/23/20 04/24/20 04/25/20 06:59 06:59 06:59 Intake Total 2400 820 Output Total 1300 1200 Balance 1100 -380 Result Diagrams: 04/23/20 04:01 04/23/20 04:01 Additional Labs: Accuchecks 04/24/20 04/24/20 04/23/20 10:40 06:14 20:20 POC Glucose 175 H 172 H 254 H 04/23/20 04/22/20 04/22/20 16:40 20:51 13:39 POC Glucose 254 H 302 H 45 L* 04/22/20 04/22/20 04/22/20 05:33 03:22 02:02 POC Glucose 48 L* 91 58 L* 04/22/20 04/21/20 04/21/20 00:03 18:57 15:51 POC Glucose 38 L* 69 L 39 L* Microbiology 04/21/20 14:14 Venous blood - Right Arm Blood Culture - Preliminary Specimen has been received and culture in progress. No Growth to date. 04/21/20 14:14 Venous blood - Left Hand Blood Culture - Preliminary Specimen has been received and culture in progress. No Growth to date. Laboratory Tests 04/21/20 04/22/20 04/22/20 14:10 03:40 03:40 Hgb 13.0 Hct 39.1 Neutrophils % 76.5 H Hemoglobin A1c 7.8 H Free T4 1.28 TSH 3rd Generation 0.0044 L 04/22/20 03:40 Hgb Hct Neutrophils % 51.9 Hemoglobin A1c Free T4 TSH 3rd Generation EKG Reviewed by me: Yes (Tele - SR) Hospitalist ROS - Medication Medications: Active Medications Generic Name Dose Route Start Last Admin Trade Name Freq PRN Reason Stop Dose Admin Dextrose/Water 25 gm 04/21/20 20:38 04/22/20 13:50 Dextrose 50% Abboject 50 Ml Syringe SLOW IVP 25 gm PRN PRN Administration Hypoglycemia Famotidine 20 mg 04/21/20 21:00 04/24/20 09:40 Famotidine 20 Mg Tab PO 20 mg BID NICHOLE Administration Gabapentin 300 mg 04/22/20 21:00 04/23/20 20:13 Gabapentin 300 Mg Cap PO 300 mg HS NICHOLE Administration Hydroxyzine HCl 25 mg 04/22/20 15:00 04/24/20 09:39 Hydroxyzine 25 Mg Tab PO 25 mg TID NICHOLE Administration Insulin Human Lispro 0 units 04/21/20 20:38 04/24/20 06:11 Humalog 300 Units/3 Ml Vial SC 2 unit .MILD SLIDING SCALE PRN Administration Mild Correctional Scale Isosorbide Mononitrate 30 mg 04/23/20 09:00 04/24/20 09:40 Isosorbide Mononitrate Er 30 Mg Tab PO Not Given DAILY [facility] Levothyroxine Sodium 100 mcg 04/23/20 06:00 04/24/20 06:13 Levothyroxine Sodium 100 Mcg Tab PO 100 mcg 0600 NICHOLE Administration Losartan Potassium 50 mg 04/23/20 09:00 04/24/20 09:42 Losartan 25 Mg Tab PO Not Given DAILY NICHOLE Metoprolol Tartrate 50 mg 04/23/20 09:00 04/24/20 09:39 Metoprolol Tartrate 50 Mg Tab PO Not Given DAILY NICHOLE Mirabegron 25 mg 04/23/20 09:00 04/24/20 09:41 Mirabegron Er 25 Mg Tab PO 25 mg DAILY NICHOLE Administration Polyvinyl Alcohol/Povidone 0 each 04/21/20 22:14 04/23/20 08:39 Polyvinyl Alcohol 1.4%/Povidone 0.6% Opth Drops EA EYE 2 each Q4H PRN Administration Dry Eyes Ranolazine 1,000 mg 04/22/20 21:00 04/24/20 09:39 Ranolazine 500 Mg Tab PO 1,000 mg BID NICHOLE Administration - Exam General Appearance: NAD, awake alert Eye: PERRL, anicteric sclera ENT: normocephalic atraumatic, no oropharyngeal lesions Neck: supple, symmetric, no JVD, no thyromegaly, no lymphadenopathy Heart: RRR, no gallops, no rubs, normal peripheral pulses Heart - other findings: S1, S2 Respiratory: CTAB, no wheezes, no rales, no ronchi, normal chest expansion Gastrointestinal: soft, non-tender, non-distended, normal bowel sounds, no palpable masses Extremities: no cyanosis, no clubbing, no edema Skin: normal turgor, no lesions Neurological: cranial nerve grossly intact, no new deficit Musculoskeletal: normal tone, generalized weakness Psychiatric: normal affect, A&O x 3 Hosp A/P (1) Hypoglycemia Code(s): E16.2 - HYPOGLYCEMIA, UNSPECIFIED Status: Acute Plan: Resolved, monitor glucose trend closely with resumption of insulin dosing (2) Acute metabolic encephalopathy due to hypoglycemia Code(s): G93.41 - METABOLIC ENCEPHALOPATHY; E16.2 - HYPOGLYCEMIA, UNSPECIFIED Status: Acute Plan: Resolved (3) Diabetes mellitus, type II, insulin dependent Code(s): E11.9 - TYPE 2 DIABETES MELLITUS WITHOUT COMPLICATIONS; 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
[2020-04-24] MEDS ORDERED: Insulin Glargine 10 UNITS in Pre-Filled Syringe 1 EACH SC SCH (12:00)
[2020-04-24] MEDS: Gabapentin 300 MG CAP PO SCH (20:40)
[2020-04-24] MEDS: Senokot S 8.6-50 MG TAB PO SCH (20:41)
[2020-04-25] MEDS: Levothyroxine Sodium 100 MCG TAB PO SCH (06:15)
[2020-04-25] MEDS: hydrOXYzine 25 MG TAB PO SCH ×3 (08:58→20:54)
[2020-04-25] MEDS: Senokot S 8.6-50 MG TAB PO SCH ×2 (08:58→20:54)
[2020-04-25] MEDS: Famotidine 20 MG TAB PO SCH ×2 (08:58→20:54)
[2020-04-25] MEDS: Metoprolol Tartrate 50 MG TAB PO SCH (08:59)
[2020-04-25] MEDS ORDERED: Insulin Glargine 10 UNITS in Pre-Filled Syringe 1 EACH SC SCH (09:00)
[2020-04-25] MEDS: Losartan 25 MG TAB PO SCH (10:22)
--- NOTE | 2020-04-25 11:00 | PDOC.HOSPP ---
- Subjective Encounter Date: 04/25/20 Encounter Time: 10:50 Subjective: f/u for hypoglycemia with encephalopathy. Some tremors noted this am but tolerated breakfast. Received Lantus 10u this am. - Objective Vital Signs & Weight: Vital Signs (12 hours) Temp Pulse Resp BP Pulse Ox 04/25/20 08:00 97.4 F L 62 20 136/67 98 04/25/20 04:00 97.8 F 78 16 151/54 H 99 04/25/20 00:00 97.4 F L 78 18 131/67 99 Weight Weight 165 lb 14.4 oz Most Recent Monitor Data Heart Rate from ECG 72 NIBP 147/51 NIBP BP-Mean 83 Respiration from ECG 23 SpO2 95 I&O: 04/24/20 04/25/20 04/26/20 06:59 06:59 06:59 Intake Total 820 1000 Output Total 1200 450 Balance -380 550 Result Diagrams: 04/23/20 04:01 04/23/20 04:01 Additional Labs: Accuchecks 04/25/20 04/24/20 04/22/20 04:24 16:45 10:40 POC Glucose 65 L 190 H 20 L* Hospitalist ROS - Medication Medications: Active Medications Generic Name Dose Route Start Last Admin Trade Name Freq PRN Reason Stop Dose Admin Dextrose/Water 25 gm 04/21/20 20:38 04/22/20 13:50 Dextrose 50% Abboject 50 Ml Syringe SLOW IVP 25 gm PRN PRN Administration Hypoglycemia Famotidine 20 mg 04/21/20 21:00 04/25/20 08:58 Famotidine 20 Mg Tab PO 20 mg BID NICHOLE Administration Gabapentin 300 mg 04/22/20 21:00 04/24/20 20:40 Gabapentin 300 Mg Cap PO 300 mg HS NICHOLE Administration Hydroxyzine HCl 25 mg 04/22/20 15:00 04/25/20 08:58 Hydroxyzine 25 Mg Tab PO 25 mg TID NICHOLE Administration Insulin Glargine 10 units/ 0.1 mls @ 0 mls/hr 04/25/20 09:00 04/25/20 09:24 Miscellaneous Medication SC 0.1 mls QAM NICHOLE Administration Insulin Human Lispro 0 units 04/21/20 20:38 04/24/20 06:11 Humalog 300 Units/3 Ml Vial SC 2 unit .MILD SLIDING SCALE PRN Administration Mild Correctional Scale Isosorbide Mononitrate 30 mg 04/23/20 09:00 04/25/20 08:58 Isosorbide Mononitrate Er 30 Mg Tab PO 30 mg DAILY NICHOLE Administration Levothyroxine Sodium 100 mcg 04/23/20 06:00 04/25/20 06:15 Levothyroxine Sodium 100 Mcg Tab PO 100 mcg 0600 NICHOLE Administration Losartan Potassium 50 mg 04/23/20 09:00 04/25/20 10:22 Losartan 25 Mg Tab PO 50 mg DAILY NICHOLE Administration Metoprolol Tartrate 50 mg 04/23/20 09:00 04/25/20 08:59 Metoprolol Tartrate 50 Mg Tab PO 50 mg DAILY NICHOLE Administration Mirabegron 25 mg 04/23/20 09:00 04/25/20 08:59 Mirabegron Er 25 Mg Tab PO 25 mg DAILY NICHOLE Administration Polyvinyl Alcohol/Povidone 0 each 04/21/20 22:14 04/23/20 08:39 Polyvinyl Alcohol 1.4%/Povidone 0.6% Opth Drops EA EYE 2 each Q4H PRN Administration Dry Eyes Ranolazine 1,000 mg 04/22/20 21:00 04/25/20 08:58 Ranolazine 500 Mg Tab PO 500 mg BID NICHOLE Administration Senna/Docusate Sodium 1 tab 04/24/20 21:00 04/25/20 08:58 Senokot S 8.6-50 Mg Tab PO 1 tab BID NICHOLE Administration - Exam General Appearance: NAD, awake alert Eye: PERRL, anicteric sclera ENT: normocephalic atraumatic, no oropharyngeal lesions Neck: supple, symmetric, no JVD, no thyromegaly, no lymphadenopathy Heart: RRR, no murmur, no gallops, no rubs, normal peripheral pulses Heart - other findings: S1, S2 Respiratory: CTAB, no wheezes, no rales, no ronchi, normal chest expansion Gastrointestinal: soft, non-tender, non-distended, normal bowel sounds, no palpable masses Extremities: no cyanosis, no clubbing, no edema Skin: normal turgor, no lesions Neurological: cranial nerve grossly intact, no new deficit Musculoskeletal: normal tone, normal strength, no muscle wasting Psychiatric: normal affect, A&O x 3 Hosp A/P (1) Hypoglycemia Code(s): E16.2 - HYPOGLYCEMIA, UNSPECIFIED Status: Acute Plan: Overall improved, decrease Lantus 8u daily, serial accuchecks (2) Acute metabolic encephalopathy due to hypoglycemia Code(s): G93.41 - METABOLIC ENCEPHALOPATHY; E16.2 - HYPOGLYCEMIA, UNSPECIFIED Status: Acute Plan: Intermittent due to hypoglycemia, supportive mgmt (3) Diabetes mellitus, type II, insulin dependent Code(s): E11.9 - TYPE 2 DIABETES MELLITUS WITHOUT COMPLICATIONS; 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
[2020-04-25] MEDS ORDERED: Insulin Glargine 8 UNITS in Pre-Filled Syringe 1 EACH SC SCH (12:00)
[2020-04-25] MEDS ORDERED: Magnesium Citrate 300 ML BOT PO SCH (12:30)
[2020-04-25] MEDS: Gabapentin 300 MG CAP PO SCH (20:54)
[2020-04-26] MEDS: Dextrose 50% Abboject 50 ML SYRINGE SLOW IVP PRN ×2 (04:57→08:38)
[2020-04-26] MEDS: Levothyroxine Sodium 100 MCG TAB PO SCH (04:57)
[2020-04-26] MEDS: Ibuprofen 200 MG TAB PO PRN ×2 (05:36→22:30)
[2020-04-26] MEDS: Famotidine 20 MG TAB PO SCH ×2 (08:28→20:28)
[2020-04-26] MEDS: hydrOXYzine 25 MG TAB PO SCH ×3 (08:29→20:28)
[2020-04-26] MEDS: Metoprolol Tartrate 50 MG TAB PO SCH (08:29)
[2020-04-26] MEDS: Senokot S 8.6-50 MG TAB PO SCH ×2 (08:29→20:28)
[2020-04-26] MEDS ORDERED: Insulin Glargine 8 UNITS in Pre-Filled Syringe 1 EACH SC SCH (09:00)
[2020-04-26] MEDS: Losartan 25 MG TAB PO SCH (09:54)
--- NOTE | 2020-04-26 10:10 | PDOC.HOSPP ---
- Subjective Encounter Date: 04/26/20 Encounter Time: 10:00 Subjective: f/u for hypoglycemic episodes with titration of current Lantus. Two episodes of mild hypoglycemia overnight/early am per nursing. Pt c/o poor tasting food and uncomfortable bed. - Objective Vital Signs & Weight: Vital Signs (12 hours) Temp Pulse Resp BP Pulse Ox 04/26/20 08:00 97.5 F L 58 L 16 159/62 H 99 04/26/20 04:00 98.7 F 57 L 16 151/53 H 99 Weight Weight 165 lb 14.4 oz Most Recent Monitor Data Heart Rate from ECG 72 NIBP 147/51 NIBP BP-Mean 83 Respiration from ECG 23 SpO2 95 I&O: 04/25/20 04/26/20 04/27/20 06:59 06:59 06:59 Intake Total 1000 920 Output Total 450 Balance 550 920 Result Diagrams: 04/23/20 04:01 04/23/20 04:01 Additional Labs: Accuchecks 04/26/20 04/26/20 04/25/20 08:32 05:36 19:25 POC Glucose 69 L 197 H 149 H 04/25/20 04/25/20 10:58 06:23 POC Glucose 82 76 Microbiology 04/21/20 14:14 Venous blood - Right Arm Blood Culture - Preliminary Specimen has been received and culture in progress. No Growth to date. 04/21/20 14:14 Venous blood - Left Hand Blood Culture - Preliminary Specimen has been received and culture in progress . No Growth to date. Laboratory Tests 04/21/20 04/22/20 04/22/20 14:10 03:40 03:40 Hgb 13.0 Hct 39.1 Neutrophils % 76.5 H Hemoglobin A1c 7.8 H Free T4 1.28 TSH 3rd Generation 0.0044 L 04/22/20 03:40 Hgb Hct Neutrophils % 51.9 Hemoglobin A1c Free T4 TSH 3rd Generation Hospitalist ROS - Medication Medications: Active Medications Generic Name Dose Route Start Last Admin Trade Name Freq PRN Reason Stop Dose Admin Dextrose/Water 25 gm 04/21/20 20:38 04/26/20 08:38 Dextrose 50% Abboject 50 Ml Syringe SLOW IVP 25 gm PRN PRN Administration Hypoglycemia Famotidine 20 mg 04/21/20 21:00 04/26/20 08:28 Famotidine 20 Mg Tab PO 20 mg BID NICHOLE Administration Gabapentin 300 mg 04/22/20 21:00 04/25/20 20:54 Gabapentin 300 Mg Cap PO 300 mg HS NICHOLE Administration Hydroxyzine HCl 25 mg 04/22/20 15:00 04/26/20 08:29 Hydroxyzine 25 Mg Tab PO 25 mg TID NICHOLE Administration Ibuprofen 200 mg 04/25/20 11:13 04/26/20 05:36 Ibuprofen 200 Mg Tab PO 200 mg Q4H PRN Administration Mild-Moderate Pain (1-5) Insulin Human Lispro 0 units 04/21/20 20:38 04/24/20 06:11 Humalog 300 Units/3 Ml Vial SC 2 unit .MILD SLIDING SCALE PRN Administration Mild Correctional Scale Isosorbide Mononitrate 30 mg 04/23/20 09:00 04/26/20 08:29 Isosorbide Mononitrate Er 30 Mg Tab PO 30 mg DAILY NICHOLE Administration Levothyroxine Sodium 100 mcg 04/23/20 06:00 04/26/20 04:57 Levothyroxine Sodium 100 Mcg Tab PO 100 mcg 0600 NICHOLE Administration Losartan Potassium 50 mg 04/23/20 09:00 04/26/20 09:54 Losartan 25 Mg Tab PO 50 mg DAILY NICHOLE Administration Metoprolol Tartrate 50 mg 04/23/20 09:00 04/26/20 08:29 Metoprolol Tartrate 50 Mg Tab PO 50 mg DAILY NICHOLE Administration Mirabegron 25 mg 04/23/20 09:00 04/26/20 08:38 Mirabegron Er 25 Mg Tab PO 25 mg DAILY NICHOLE Administration Polyvinyl Alcohol/Povidone 0 each 04/21/20 22:14 04/23/20 08:39 Polyvinyl Alcohol 1.4%/Povidone 0.6% Opth Drops EA EYE 2 each Q4H PRN Administration Dry Eyes Ranolazine 1,000 mg 04/22/20 21:00 04/26/20 08:29 Ranolazine 500 Mg Tab PO 1,000 mg BID NICHOLE Administration Senna/Docusate Sodium 1 tab 04/24/20 21:00 04/26/20 08:29 Senokot S 8.6-50 Mg Tab PO 1 tab BID NICHOLE Administration - Exam General Appearance: NAD, awake alert Eye: PERRL, anicteric sclera ENT: normocephalic atraumatic, no oropharyngeal lesions Neck: supple, symmetric, no JVD, no thyromegaly, no lymphadenopathy Heart: RRR, no gallops, no rubs, normal peripheral pulses Heart - other findings: S1, S2 Respiratory: CTAB, no wheezes, no rales, no ronchi, normal chest expansion Gastrointestinal: soft, non-tender, non-distended, normal bowel sounds, no palpable masses Extremities: no cyanosis, no clubbing, no edema Skin: normal turgor, no lesions Neurological: cranial nerve grossly intact, no new deficit Musculoskeletal: normal tone, normal strength, no muscle wasting Psychiatric: normal affect, A&O x 3 Hosp A/P (1) Hypoglycemia Code(s): E16.2 - HYPOGLYCEMIA, UNSPECIFIED Status: Acute Plan: Decrease Lantus 5u qam, serial accuchecks, overall less episodes (2) Acute metabolic encephalopathy due to hypoglycemia Code(s): G93.41 - METABOLIC ENCEPHALOPATHY; E16.2 - HYPOGLYCEMIA, UNSPECIFIED Status: Acute Plan: Improved (3) Diabetes mellitus, type II, insulin dependent Code(s): E11.9 - TYPE 2 DIABETES MELLITUS WITHOUT COMPLICATIONS; 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
[2020-04-26] MEDS: Gabapentin 300 MG CAP PO SCH (20:28)
[2020-04-26] MEDS: Polyvinyl Alcohol 1.4%/Povidone 0.6% Opth Drops EA EYE PRN (20:32)
[2020-04-27] MEDS: Levothyroxine Sodium 100 MCG TAB PO SCH (05:39)
[2020-04-27] MEDS: Dextrose 50% Abboject 50 ML SYRINGE SLOW IVP PRN (05:47)
[2020-04-27] MEDS: Famotidine 20 MG TAB PO SCH ×2 (09:51→21:13)
[2020-04-27] MEDS: Senokot S 8.6-50 MG TAB PO SCH ×2 (09:51→21:13)
[2020-04-27] MEDS: hydrOXYzine 25 MG TAB PO SCH ×3 (09:51→21:18)
[2020-04-27] MEDS: Metoprolol Tartrate 50 MG TAB PO SCH (09:51)
[2020-04-27] MEDS: Losartan 25 MG TAB PO SCH (09:52)
[2020-04-27] MEDS: Insulin Glargine 5 UNITS in Pre-Filled Syringe 1 EACH SC SCH (10:48)
[2020-04-27] MEDS: Gabapentin 300 MG CAP PO SCH (21:18)
--- NOTE | 2020-04-27 22:12 | PDOC.HOSPP ---
- Subjective Encounter Date: 04/27/20 Encounter Time: 10:00 Subjective: Patient was seen and examined in bed. She was in no acute distress. No new complaints - Objective Vital Signs & Weight: Vital Signs (12 hours) Temp Pulse Resp BP BP Pulse Ox 04/27/20 16:00 97.7 F 53 L 18 102/60 98 04/27/20 12:00 97.6 F 53 L 18 160/62 H Weight Weight 165 lb 14.4 oz Most Recent Monitor Data Heart Rate from ECG 72 NIBP 147/51 NIBP BP-Mean 83 Respiration from ECG 23 SpO2 95 I&O: 04/26/20 04/27/20 04/28/20 06:59 06:59 06:59 Intake Total 920 950 480 Balance 920 950 480 Result Diagrams: 04/23/20 04:01 04/23/20 04:01 Additional Labs: Accuchecks 04/27/20 04/27/20 04/26/20 12:37 05:48 09:26 POC Glucose 178 H 78 190 H 04/26/20 04/26/20 04/25/20 04:33 04:32 16:38 POC Glucose 58 L* 53 L* 113 H 04/24/20 21:15 POC Glucose 157 H Hospitalist ROS - Medication Medications: Active Medications Generic Name Dose Route Start Last Admin Trade Name Freq PRN Reason Stop Dose Admin Dextrose/Water 25 gm 04/21/20 20:38 04/27/20 05:47 Dextrose 50% Abboject 50 Ml Syringe SLOW IVP 25 gm PRN PRN Administration Hypoglycemia Famotidine 20 mg 04/21/20 21:00 04/27/20 21:13 Famotidine 20 Mg Tab PO 20 mg BID NICHOLE Administration Gabapentin 300 mg 04/22/20 21:00 04/27/20 21:18 Gabapentin 300 Mg Cap PO 300 mg HS NICHOLE Administration Hydroxyzine HCl 25 mg 04/22/20 15:00 04/27/20 21:18 Hydroxyzine 25 Mg Tab PO 25 mg TID NICHOLE Administration Insulin Glargine 5 units/ 0.05 mls @ 0 mls/hr 04/27/20 09:00 04/27/20 10:48 Miscellaneous Medication SC 0.05 mls QAM NICHOLE Administration Ibuprofen 200 mg 04/25/20 11:13 04/26/20 22:30 Ibuprofen 200 Mg Tab PO 200 mg Q4H PRN Administration Mild-Moderate Pain (1-5) Insulin Human Lispro 0 units 04/21/20 20:38 04/24/20 06:11 Humalog 300 Units/3 Ml Vial SC 2 unit .MILD SLIDING SCALE PRN Administration Mild Correctional Scale Isosorbide Mononitrate 30 mg 04/23/20 09:00 04/27/20 09:51 Isosorbide Mononitrate Er 30 Mg Tab PO 30 mg DAILY NICHOLE Administration Levothyroxine Sodium 100 mcg 04/23/20 06:00 04/27/20 05:39 Levothyroxine Sodium 100 Mcg Tab PO 100 mcg 0600 NICHOLE Administration Losartan Potassium 50 mg 04/23/20 09:00 04/27/20 09:52 Losartan 25 Mg Tab PO 50 mg DAILY NICHOLE Administration Metoprolol Tartrate 50 mg 04/23/20 09:00 04/27/20 09:51 Metoprolol Tartrate 50 Mg Tab PO 50 mg DAILY NICHOLE Administration Mirabegron 25 mg 04/23/20 09:00 04/27/20 09:52 Mirabegron Er 25 Mg Tab PO 25 mg DAILY NICHOLE Administration Polyvinyl Alcohol/Povidone 0 each 04/21/20 22:14 04/26/20 20:32 Polyvinyl Alcohol 1.4%/Povidone 0.6% Opth Drops EA EYE 2 each Q4H PRN Administration Dry Eyes Ranolazine 1,000 mg 04/22/20 21:00 04/27/20 21:13 Ranolazine 500 Mg Tab PO 1,000 mg BID NICHOLE Administration Senna/Docusate Sodium 1 tab 04/24/20 21:00 04/27/20 21:13 Senokot S 8.6-50 Mg Tab PO 1 tab BID NICHOLE Administration - Exam General - other findings: Patient in bed, no acute distress. Heart - other findings: S1-S2 present. No murmurs gallops or rubs. Respiratory - other findings: Entry adequate bilaterally. No rhonchi or rales. Gastrointestinal - other findings: Soft, nontender, nondistended, bowel sounds present. Extremities - other findings: No edema noted. Hosp A/P - Plan This is a 79-year-old female patient with history of diabetes mellitus admitted on account of hypoglycemia. Initial plan is to discharge today however patient still unable to go home on home health given that she has no help Case management asked to help find placement for subacute rehab as initially recommended by PT Hypoglycemia Likely secondary to excess insulin use We will try 5 units of glargine today and monitor We will discharge on 5 units if that keeps her glucose within reasonable limits. Acute mixed metabolic encephalopathy At presentation Likely to hypoglycemia Currently resolved Try to avoid hypoglycemia. Hypertension Blood pressure stable Continue monitoring. Hypothyroidism Continue levothyroxine DVT prophylaxis start Lovenox CODE STATUSfull code Dispositionpending placement
[2020-04-28] MEDS: Dextrose 50% Abboject 50 ML SYRINGE SLOW IVP PRN (04:43)
[2020-04-28] MEDS: Levothyroxine Sodium 100 MCG TAB PO SCH (06:05)
[2020-04-28] MEDS: Famotidine 20 MG TAB PO SCH ×2 (10:06→20:48)
[2020-04-28] MEDS: Metoprolol Tartrate 50 MG TAB PO SCH (10:07)
[2020-04-28] MEDS: hydrOXYzine 25 MG TAB PO SCH ×3 (10:07→20:48)
[2020-04-28] MEDS: Senokot S 8.6-50 MG TAB PO SCH ×2 (10:08→21:35)
[2020-04-28] MEDS: Enoxaparin Sodium 40 MG/0.4 ML SYRINGE SC SCH (10:18)
[2020-04-28] MEDS: Losartan 25 MG TAB PO SCH (12:08)
--- NOTE | 2020-04-28 13:17 | PDOC.HOSPP ---
- Subjective Encounter Date: 04/28/20 Encounter Time: 12:00 Subjective: Patient was seen and examined in bed. She was sitting up in no acute distress. She denied any chest pain cough shortness of breath. Her blood glucose has been stable overnight - Objective Vital Signs & Weight: Vital Signs (12 hours) Temp Pulse Resp BP Pulse Ox 04/28/20 08:00 97 04/28/20 07:41 97.5 F L 57 L 20 154/65 H 97 Weight Weight 165 lb 14.4 oz Most Recent Monitor Data Heart Rate from ECG 72 NIBP 147/51 NIBP BP-Mean 83 Respiration from ECG 23 SpO2 95 I&O: 04/27/20 04/28/20 04/29/20 06:59 06:59 06:59 Intake Total 950 780 200 Balance 950 780 200 Result Diagrams: 04/23/20 04:01 04/23/20 04:01 Additional Labs: Accuchecks 04/28/20 04/28/20 04/28/20 12:11 11:10 06:12 POC Glucose 162 H 123 H 160 H 04/28/20 04:42 POC Glucose 91 Hospitalist ROS - Medication Medications: Active Medications Generic Name Dose Route Start Last Admin Trade Name Freq PRN Reason Stop Dose Admin Dextrose/Water 25 gm 04/21/20 20:38 04/28/20 04:43 Dextrose 50% Abboject 50 Ml Syringe SLOW IVP 25 gm PRN PRN Administration Hypoglycemia Enoxaparin Sodium 40 mg 04/28/20 09:00 04/28/20 10:18 Enoxaparin Sodium 40 Mg/0.4 Ml Syringe SC 40 mg 0900 NICHOLE Administration Famotidine 20 mg 04/21/20 21:00 04/28/20 10:06 Famotidine 20 Mg Tab PO 20 mg BID NICHOLE Administration Gabapentin 300 mg 04/22/20 21:00 04/27/20 21:18 Gabapentin 300 Mg Cap PO 300 mg HS NICHOLE Administration Hydroxyzine HCl 25 mg 04/22/20 15:00 04/28/20 10:07 Hydroxyzine 25 Mg Tab PO 25 mg TID NICHOLE Administration Insulin Glargine 5 units/ 0.05 mls @ 0 mls/hr 04/27/20 09:00 04/27/20 10:48 Miscellaneous Medication SC 0.05 mls QAM NICHOLE Administration Ibuprofen 200 mg 04/25/20 11:13 04/26/20 22:30 Ibuprofen 200 Mg Tab PO 200 mg Q4H PRN Administration Mild-Moderate Pain (1-5) Insulin Human Lispro 0 units 04/21/20 20:38 04/24/20 06:11 Humalog 300 Units/3 Ml Vial SC 2 unit .MILD SLIDING SCALE PRN Administration Mild Correctional Scale Isosorbide Mononitrate 30 mg 04/23/20 09:00 04/28/20 10:07 Isosorbide Mononitrate Er 30 Mg Tab PO 30 mg DAILY NICHOLE Administration Levothyroxine Sodium 100 mcg 04/23/20 06:00 04/28/20 06:05 Levothyroxine Sodium 100 Mcg Tab PO 100 mcg 0600 NICHOLE Administration Losartan Potassium 50 mg 04/23/20 09:00 04/28/20 12:08 Losartan 25 Mg Tab PO 50 mg DAILY NICHOLE Administration Metoprolol Tartrate 50 mg 04/23/20 09:00 04/28/20 10:07 Metoprolol Tartrate 50 Mg Tab PO 50 mg DAILY NICHOLE Administration Mirabegron 25 mg 04/23/20 09:00 04/28/20 10:07 Mirabegron Er 25 Mg Tab PO 25 mg DAILY NICHOLE Administration Polyvinyl Alcohol/Povidone 0 each 04/21/20 22:14 04/26/20 20:32 Polyvinyl Alcohol 1.4%/Povidone 0.6% Opth Drops EA EYE 2 each Q4H PRN Administration Dry Eyes Ranolazine 1,000 mg 04/22/20 21:00 04/28/20 10:07 Ranolazine 500 Mg Tab PO 1,000 mg BID NICHOLE Administration Senna/Docusate Sodium 1 tab 04/24/20 21:00 04/28/20 10:08 Senokot S 8.6-50 Mg Tab PO Not Given BID NICHOLE - Exam General - other findings: No acute distress. Heart - other findings: S1-S2 present and normal. No murmurs gallops or rubs Respiratory - other findings: Entry adequate bilaterally. No rhonchi rales Extremities - other findings: No edema noted Neurological: cranial nerve grossly intact, no new deficit Hosp A/P - Plan This is a 79-year-old female patient with history of diabetes mellitus admitted on account of hypoglycemia. Initial plan is to discharge on 04/27/2020 however patient feels she is unable to go home on home health given the limited visits and her current weakness. Case management asked to help find placement for subacute rehab as initially recommended by PT Hypoglycemia Likely secondary to excess insulin use Continue blood glucose monitoring on 5 units glargine We will discharge on 5 units if that keeps her glucose within reasonable limits. Acute mixed metabolic encephalopathy At presentation Likely to hypoglycemia Currently resolved Try to avoid hypoglycemia. Hypertension Blood pressure stable Continue monitoring. Hypothyroidism Continue levothyroxine DVT prophylaxis start Lovenox CODE STATUSfull code Dispositionpending placement
[2020-04-28] MEDS: Insulin Glargine 5 UNITS in Pre-Filled Syringe 1 EACH SC SCH (16:25)
[2020-04-28] MEDS: Gabapentin 300 MG CAP PO SCH (20:48)
[2020-04-29] MEDS: Levothyroxine Sodium 100 MCG TAB PO SCH (06:12)
[2020-04-29] MEDS: Famotidine 20 MG TAB PO SCH ×2 (07:51→21:12)
[2020-04-29] MEDS: Losartan 25 MG TAB PO SCH (07:51)
[2020-04-29] MEDS: Metoprolol Tartrate 50 MG TAB PO SCH (07:52)
[2020-04-29] MEDS: Enoxaparin Sodium 40 MG/0.4 ML SYRINGE SC SCH (07:52)
[2020-04-29] MEDS: Senokot S 8.6-50 MG TAB PO SCH ×3 (07:53→21:13)
[2020-04-29] MEDS: hydrOXYzine 25 MG TAB PO SCH ×3 (10:10→21:15)
--- NOTE | 2020-04-29 13:48 | PDOC.HOSPP ---
- Subjective Encounter Date: 04/29/20 Encounter Time: 13:46 Subjective: Patient was seen and examined in bed. To the general good night. She denied any pain - Objective Vital Signs & Weight: Vital Signs (12 hours) Temp Pulse Resp BP Pulse Ox 04/29/20 07:30 97.3 F L 54 L 18 155/62 H 100 Weight Weight 165 lb 14.4 oz Most Recent Monitor Data Heart Rate from ECG 72 NIBP 147/51 NIBP BP-Mean 83 Respiration from ECG 23 SpO2 95 I&O: 04/28/20 04/29/20 04/30/20 06:59 06:59 06:59 Intake Total 780 1500 Balance 780 1500 Result Diagrams: 04/23/20 04:01 04/23/20 04:01 Additional Labs: Accuchecks 04/29/20 04/28/20 04/28/20 05:43 19:32 16:23 POC Glucose 126 H 232 H 258 H Hospitalist ROS - Medication Medications: Active Medications Generic Name Dose Route Start Last Admin Trade Name Freq PRN Reason Stop Dose Admin Dextrose/Water 25 gm 04/21/20 20:38 04/28/20 04:43 Dextrose 50% Abboject 50 Ml Syringe SLOW IVP 25 gm PRN PRN Administration Hypoglycemia Enoxaparin Sodium 40 mg 04/28/20 09:00 04/29/20 07:52 Enoxaparin Sodium 40 Mg/0.4 Ml Syringe SC 40 mg 0900 NICHOLE Administration Famotidine 20 mg 04/21/20 21:00 04/29/20 07:51 Famotidine 20 Mg Tab PO 20 mg BID NICHOLE Administration Gabapentin 300 mg 04/22/20 21:00 04/28/20 20:48 Gabapentin 300 Mg Cap PO 300 mg HS NICHOLE Administration Hydroxyzine HCl 25 mg 04/22/20 15:00 04/29/20 10:10 Hydroxyzine 25 Mg Tab PO 25 mg TID NICHOLE Administration Insulin Glargine 5 units/ 0.05 mls @ 0 mls/hr 04/27/20 09:00 04/28/20 16:25 Miscellaneous Medication SC 0.05 mls QAM NICHOLE Administration Ibuprofen 200 mg 04/25/20 11:13 04/26/20 22:30 Ibuprofen 200 Mg Tab PO 200 mg Q4H PRN Administration Mild-Moderate Pain (1-5) Insulin Human Lispro 0 units 04/21/20 20:38 04/24/20 06:11 Humalog 300 Units/3 Ml Vial SC 2 unit .MILD SLIDING SCALE PRN Administration Mild Correctional Scale Isosorbide Mononitrate 30 mg 04/23/20 09:00 04/29/20 07:51 Isosorbide Mononitrate Er 30 Mg Tab PO 30 mg DAILY NICHOLE Administration Levothyroxine Sodium 100 mcg 04/23/20 06:00 04/29/20 06:12 Levothyroxine Sodium 100 Mcg Tab PO 100 mcg 0600 NICHOLE Administration Losartan Potassium 50 mg 04/23/20 09:00 04/29/20 07:51 Losartan 25 Mg Tab PO 50 mg DAILY NICHOLE Administration Metoprolol Tartrate 50 mg 04/23/20 09:00 04/29/20 07:52 Metoprolol Tartrate 50 Mg Tab PO 50 mg DAILY NICHOLE Administration Mirabegron 25 mg 04/23/20 09:00 04/29/20 07:51 Mirabegron Er 25 Mg Tab PO 25 mg DAILY NICHOLE Administration Polyvinyl Alcohol/Povidone 0 each 04/21/20 22:14 04/26/20 20:32 Polyvinyl Alcohol 1.4%/Povidone 0.6% Opth Drops EA EYE 2 each Q4H PRN Administration Dry Eyes Ranolazine 1,000 mg 04/22/20 21:00 04/29/20 07:52 Ranolazine 500 Mg Tab PO 1,000 mg BID NICHOLE Administration Senna/Docusate Sodium 1 tab 04/24/20 21:00 04/29/20 08:01 Senokot S 8.6-50 Mg Tab PO 1 tab BID NICHOLE Administration - Exam General - other findings: In bed, no acute distress. Heart - other findings: S1-S2 present and normal. No murmurs or gallops or rubs. Respiratory - other findings: Air entry adequate bilaterally. Gastrointestinal - other findings: Soft, nontender. Bowel sounds present. Extremities - other findings: No edema. Hosp A/P - Plan This is a 79-year-old female patient with history of diabetes mellitus admitted on account of hypoglycemia. Initial plan is to discharge on 04/27/2020 however patient feels she is unable to go home on home health given the limited visits and her current weakness. Case management asked to help find placement for subacute rehab as initially recommended by PT Hypoglycemia Likely secondary to excess insulin use Continue blood glucose monitoring on 5 units glargineblood sugar stable so far We will discharge on 5 units if that keeps her glucose within reasonable limits. Acute metabolic encephalopathy At presentation Likely to hypoglycemia Currently resolved Try to avoid hypoglycemia. Hypertension Blood pressure stable Continue monitoring. Hypothyroidism Continue levothyroxine DVT prophylaxis start Lovenox CODE STATUSfull code Dispositionpending placement
[2020-04-29] MEDS: Ibuprofen 200 MG TAB PO PRN (13:52)
[2020-04-29] MEDS: Insulin Glargine 5 UNITS in Pre-Filled Syringe 1 EACH SC SCH (17:20)
[2020-04-29] MEDS: Gabapentin 300 MG CAP PO SCH (21:13)
[2020-04-30] MEDS: Levothyroxine Sodium 100 MCG TAB PO SCH (05:52)
[2020-04-30 07:26] VITALS: BP 152/65; TEMP 97.6
[2020-04-30] MEDS: Famotidine 20 MG TAB PO SCH (08:50)
[2020-04-30] MEDS: Senokot S 8.6-50 MG TAB PO SCH (08:50)
[2020-04-30] MEDS: hydrOXYzine 25 MG TAB PO SCH (08:51)
[2020-04-30] MEDS: Metoprolol Tartrate 50 MG TAB PO SCH (08:51)
[2020-04-30] MEDS: Enoxaparin Sodium 40 MG/0.4 ML SYRINGE SC SCH (08:51)
[2020-04-30] MEDS: Insulin Glargine 5 UNITS in Pre-Filled Syringe 1 EACH SC SCH (08:51)
[2020-04-30] MEDS: Losartan 25 MG TAB PO SCH (08:57)
--- NOTE | 2020-05-01 11:55 | DIS ---
DATE OF ADMISSION: 04/21/2020 DATE OF DISCHARGE: 04/30/2020 DISCHARGE DIAGNOSES: 1. Hypoglycemia secondary to excess insulin dose. 2. Acute metabolic encephalopathy. 3. Hypertension. 4. Hypothyroidism. BRIEF HOSPITAL COURSE: This is a 79-year-old female patient with a history of diabetes mellitus, on insulin, who was admitted on account of hypoglycemia. She was found on the floor unconscious and her blood sugar was noted to be 17 when EMS arrived. She was noted to have altered mental state, which improved with D5 with blood sugar increasing to the 200s and she was subsequently transported to the ED for further evaluation. On arrival, she was placed on D5 NS with subsequent improvement in her sugar. She noted that she was on insulin 75/25 mixture with 62 units in the morning and 42 units in the evening. On arrival, insulin was discontinued and her blood sugars were monitored. She was subsequently resumed on insulin glargine at 5 units daily, which maintained her blood sugars between 160 and 200s. She was discharged to a nursing home facility as a result of PT evaluation and weakness. On the day of discharge, she complained of mild nausea, which was treated with ondansetron prior to transfer to the nursing home facility in [place]. DISCHARGE PHYSICAL EXAMINATION: GENERAL: The patient is in bed. No acute distress. RESPIRATORY SYSTEM: Air entry adequate bilaterally. No wheezes, rhonchi, or rales. CARDIOVASCULAR SYSTEM: S1 and S2 present and normal. No murmurs, gallops, or rubs. ABDOMEN: Benign. EXTREMITIES: No edema. CENTRAL NERVOUS SYSTEM: The patient was alert and oriented x4. DISCHARGE MEDICATIONS: Glargine 5 units daily. Home medications to be continued. CONSULTATIONS: None. DISCHARGE CONDITION: Stable. Job ID: [id number]
--- NOTE | 2020-05-02 12:55 | PQF ---
CLINICAL DOCUMENTATION CLARIFICATION FORM: Dear : Ten Sexton MD, PhD Date / Time: 05/02/2020 Please exercise your independent, professional judgment in responding to the clarification form. Clinical indicators are provided on the bottom of this form for your review Please check appropriate box(es): [ ] Hypoglycemia due to accidental insulin overdose [ ] Hypoglycemia not due to accidental insulin overdose [ x ] Other diagnosis Hypoglycemia due to prescribed insulin dose too high (Please specify if any) [ ] Unable to determine Physician Signature: UBALDO Date/Time:05/02/20 For continuity of documentation, please document condition throughout progress notes and discharge summary. Thank You. To be completed by CDI/Coding staff for physician review: Present Clinical Indicators - Signs / Symptoms / Labs Results and Location in Medical Record [x ] Mental status changes in the setting of hypoglycemia, suspect likely accidental insulin overdose ED provider report on 04/21 [ x ] I also gave her D5NS infusion as welll and PRN amps of D50 fo hypoglycemia. ED provider report on 04/21 [ x ] She thinks she gave herself her insulin(normally gets 60units in am and 40 units in afternoon), not sure if she ate or not ER visit notes on 04/21 [ x ] Acute metabolic encephalopathy secondary to hypoglycemia H&P on 04/22 [x ] F/u hypoglycemia suspected due to home insulin regimen Hospitalist PN on 04/22 Present Risk Factors Results and Location in Medical Record [ x ] hypoglycemia ED provider report on 04/21 [ x ] Aged person 79 yrs ED provider report on 04/21 [ ] [ ] Present Treatments Results and Location in Medical Record [ x] Dextrose 50% IV Medication on 04/21 [ x ] Insulin 10 units Medication on 04/24 [ ] [ ] CDS/Revenue Inspector Signature: NISA Phone #: Date/Time: 05/02/2020 This is a permanent part of the Medical Record [facility]
== END 2020-04-30 14:30 | DRG 637 ==
LOC: ERS 13:27 → 2NO 17:27 → IMCU/EMU 04-22 15:14 → T4-A 04-24 18:54
PROVIDERS: ADMIT Family Medicine; ATTEND Family Medicine
DX: E11.649 Type 2 diabetes mellitus with hypoglycemia without coma (principal); G93.41 Metabolic encephalopathy; I25.10 Atherosclerotic heart disease of native coronary artery without angina pectoris; E03.9 Hypothyroidism, unspecified; I10 Essential (primary) hypertension; E78.5 Hyperlipidemia, unspecified; E11.42 Type 2 diabetes mellitus with diabetic polyneuropathy; Z88.0 Allergy status to penicillin; Z90.49 Acquired absence of other specified parts of digestive tract; Z90.710 Acquired absence of both cervix and uterus; Z88.6 Allergy status to analgesic agent; Z88.8 Allergy status to other drugs, medicaments and biological substances; Z95.5 Presence of coronary angioplasty implant and graft; Z79.4 Long term (current) use of insulin; Z79.899 Other long term (current) drug therapy
CPT/HCPCS: 36415; 36416; 36600; 70450; 71045; 80048; 80053; 81003; 82330; 82803; 83036; 83605; 83690; 84439; 84443; 84484; 85025; 87040; 87086; 87635; 93005; 94760; 96361; 96365; 96366; 96367; 96375; 96376; 99292; J0692; J1650; J1815; J2920; J2930; J3370; J3490; J7512; Q0162; U0003

== ENCOUNTER 2020-05-22 15:37 | Inpatient (IN) | payer MEDICARE, OTHER ==
[~2020-05-22 15:37] MED LIST: Acetaminophen 325 MG TAB PO PRN; Ondansetron ODT 4 MG TAB SL PRN; Ondansetron PF 4 MG/2 ML Vial IVP PRN
[2020-05-22 17:50] VITALS: BMI 28.5
[2020-05-22] MEDS ORDERED: Acetaminophen 650 MG Suppository PR PRN (20:42)
[2020-05-22] MEDS ORDERED: Acetaminophen 325 MG TAB PO PRN (20:42)
[2020-05-22] MEDS ORDERED: Lorazepam 2 MG/ML VIAL SLOW IVP PRN (21:16)
[2020-05-22 22:14] LABS: Lactic Acid 1.3 mmol/L (0.5-2.2)
[2020-05-22 22:20] LABS: Magnesium 1.6 mg/dL (1.6-2.6)
[2020-05-22] MEDS: Famotidine 20 MG TAB PO SCH (22:38)
[2020-05-22 22:43] LABS: CKMB 0.8 ng/mL (0-6.6)
--- NOTE | 2020-05-22 23:13 | RAD ---
Chest AP view INDICATION: Chest pain COMPARISON: Prior exam dated May 22, 2020 1:35 PM FINDINGS: Lungs: Airspace disease of the left lower lobe persists. Patchy opacities in the right lung base hernandez ear mildly improved. Cardiac silhouette: The cardiomediastinal silhouette appears within normal limits. Pulmonary vasculature: Normal Pleural spaces: No pleural effusion or pneumothorax is demonstrated. Upper abdomen: No abnormality seen. Osseous structures: No acute osseous abnormality. Additional findings: Surgical clips within the right neck base with associated IV cannula are stable . IMPRESSION: Persistent left lower lobe airspace disease. Mildly improved airspace opacities the right lung base. Findings are suspicious for pneumonia. Recommend continued follow-up.
[2020-05-22] MEDS ORDERED: Sodium Chloride 0.9% 1,000 ML IV SCH (23:45)
[2020-05-23] MEDS ORDERED: Electrolyte Replacement Protoc 1 EACH EACH FS SCH
[2020-05-23] MEDS ORDERED: Magnesium 2 GM/50 ML 2 GM in Premix Bag 1 BAG IVPB SCH (00:15)
--- NOTE | 2020-05-23 01:07 | HP ---
TIME OF ASSESSMENT: 1999. PRIMARY CARE PHYSICIAN: Dr. Duarte. CHIEF COMPLAINT: Generalized weakness, chills, possible seizure. HISTORY OF PRESENT ILLNESS: Ms. Rodriguez is a pleasant 79-year-old woman, who was brought into the emergency department from [facility], where she was sent for rehab due to a physical deconditioning. The patient apparently has been getting progressively weak over the last 2 weeks and today was lethargic. Per ED notes, she had changes with her speech and bilateral upper and lower extremity weakness. Unclear if she experienced a seizure, but she is not known to have any seizure disorder. The patient apparently brought in due to concerns for possible stroke and therefore underwent CT brain imaging shortly upon arriving to the emergency department. This was done at [facility] and scan showed no acute intracranial process with age-appropriate atrophy and stable chronic small-vessel ischemic changes. According to ED reports, tPA was held as per discussion with Neurology and the patient witnessed to have what appeared to be a partial seizure like activity in the emergency department. The patient states she has no recollection of events, but states that she has felt generally weak in both arms and both legs. Denies experiencing any numbness or tingling. She continues to feel generally weak, but states it is slightly better than how she fell earlier today prior to going to the emergency department. Denies having any fevers or sweats, but reports having chills and at times shaking throughout her body while she is awake and alert. Denies having any cough or hemoptysis. No shortness of breath or chest pain. Denies any abdominal pain or cramping. Her appetite has been generally well with poor oral intake. Complains of having a dry mouth. Apparently, did have an episode of vomiting and is not aware of any hematemesis. Denies having any constipation or loose stools. Also denies having any urinary symptoms. She has not had any improvement in her mobility while undergoing rehab. Denies having any dizziness. No vision changes. No speech changes that she is aware of. EMERGENCY DEPARTMENT COURSE: In the emergency department, the patient underwent multiple imaging studies. CT of brain done as mentioned above. In addition to that, she had a CT angiogram of the head and neck done, which showed no hemodynamically significant stenosis, occlusion, or aneurysmal formation. There is atherosclerosis to the cervical carotid arteries and intracranial carotid arteries. Chest x-ray was done at outside facility and showed atherosclerosis. Chronic lung parenchymal changes. Superimposed infiltrate predominantly at the lung bases could not be excluded. She did have laboratory studies done showing a white blood cell count of 6.6, hemoglobin 11.9, hematocrit 37.3, platelets 152, neutrophils 56.8%. Sodium was 140, potassium 4.4, BUN 18, creatinine 0.85, GFR 65, glucose 216, calcium 8.7. LFTs unremarkable. Initial troponin 0.050 and albumin was 2.9. She had urinalysis done showing yellow slightly cloudy urine, which showed trace protein, 500 glucose, 15 ketones, trace blood, positive for nitrites, small leukocyte esterase, 4 to 6 red blood cells, white blood cells greater than 50, 3+ bacteria. She was started on IV antibiotics with Rocephin for UTI. Also given 500 mg of Keppra IV for seizures. Her vitals were stable outside the ER and she was transferred here for further management and workup. Of note, the patient did have issues with hypoglycemia resulting in acute metabolic encephalopathy and physical deconditioning during prior admission. She was felt to be hypoglycemic due to excessive insulin. PAST MEDICAL HISTORY: 1. Type 2 diabetes mellitus, insulin requiring. 2. CAD. 3. Urinary incontinence. 4. Hypertension. 5. Hyperlipidemia. 6. Hypothyroidism. 7. Peripheral neuropathy. PAST SURGICAL HISTORY: 1. Cardiac stent placement. 2. Right knee surgery. 3. Ear surgery. 4. Hysterectomy. 5. Appendectomy. 6. Bladder surgery x2. SOCIAL HISTORY: The patient is currently undergoing rehab. She usually lives with her family. She has been bed-bound due to physical deconditioning/generalized weakness. Denies any tobacco use, alcohol consumption, or drug use. FAMILY HISTORY: Noncontributory. ALLERGIES: CODEINE, MORPHINE, AND PENICILLIN. CURRENT MEDICATIONS: 1. Hydroxyzine 25 mg p.o. at bedtime. 2. Magnesium oxide 400 mg p.o. daily. 3. Ranolazine ER 1000 mg p.o. b.i.d. 4. Gabapentin 300 mg p.o. at bedtime. 5. Isosorbide mononitrate 30 mg p.o. daily. 6. Cozaar 50 mg p.o. daily. 7. Metoprolol tartrate 50 mg p.o. daily. 8. Risperidone 1 mg p.o. daily. 9. Rosuvastatin 40 mg p.o. daily. PHYSICAL EXAMINATION: GENERAL: The patient appears generally weak, alert, and in no acute distress. VITAL SIGNS: Temperature 97.6, pulse 50, respirations 16, O2 saturation 98% on room air, blood pressure 144/60. HEENT: Normocephalic and atraumatic. Pupils are equal, round, reactive to light. Extraocular movements intact. Sclerae without icterus. Oropharynx, notable for dry oral mucosa and brown colored sputum on the roof of her mouth. Small specks of what appears to be dried blood along her lips. No signs of sores or lesions or bleeding on her tongue or buccal mucosa. She does have poor dentition. No bleeding of her gums. NECK: Supple. She has long-standing scar tissue to the lower side of her neck, which she states has been there since she was a child. No cervical spine tenderness. LUNGS: Clear bilaterally. No tachypnea. No wheezes, rales, or rhonchi. Normal chest expansion. CARDIAC: Regular rate and rhythm. ABDOMEN: Soft, nontender, nondistended. Normoactive bowel sounds present. No guarding or rigidity. No renal angle tenderness. EXTREMITIES: No lower extremity edema. Normal sensation in all extremities. Power 4/5 in bilateral lower extremities and bilateral upper extremities. SKIN: Warm and dry with reduced turgor. NEUROLOGIC: Alert and oriented x3. She is aware of the week, year, and place. Speech normal. No neuro deficits on exam. She is generally weak. INVESTIGATIONS: As mentioned above in HPI. IMPRESSION AND PLAN: 1. Suspected seizure. The patient apparently witnessed to have what appeared to be a partial seizure while in the emergency department. CT head was unremarkable. We will check prolactin. Neuro consult placed. EEG ordered for the morning. The patient with no known history of seizure disorder. Continue Keppra. 2. Generalized weakness. She was recently undergoing rehabilitation with no notable improvement. The weakness could be precipitated by underlying infection. PT and OT are consulted. Fall precaution. We will also check a CK level. 3. Urinary tract infection. We will continue Rocephin. Urine culture pending. We will check lactic acid. 4. Vomiting. The patient apparently experienced an episode of vomiting. Unclear when this actually happened. Chest x-ray demonstrated findings of infiltrates at the lung bases. Given her generalized weakness, I am concerned about her swallowing abilities. We will have bedside screening done for dysphagia. She feels she would benefit from speech therapy to assess her swallowing. We will repeat chest x- ray to determine if she may have underlying pneumonia. Concern for possible aspiration pneumonia. 5. Clinical dehydration. The kidney function is essentially stable. She does complain of dry mouth and appears to be clinically dehydrated. We will give very gentle hydration at 45 mL/h. 6. Indeterminate troponin. The patient with known coronary artery disease. Continue cardiac monitoring and continue to trend troponins. We will also check BNP and magnesium. 7. Diabetes mellitus. Patient reportedly insulin dependent, but has had issues with hypoglycemia recently. Does not have any antihyperglycemics on her home med list. Unclear if these were discontinued due to low glucose. We will continue to monitor her glucose, but we will hold off on sliding scale for tonight. Especially since the patient will be n.p.o. 8. Hypertension. Monitor blood pressure and resume home medications. 9. Hypothyroidism. We will check TSH with morning labs and resume home medications once verified. 10. Hyperlipidemia. Resume statin. 11. Peripheral neuropathy. Resume gabapentin. 12. Gastrointestinal prophylaxis with famotidine. 13. Code status. Surrogate decision maker is her , Alireza Rodriguez. Per patient and her daughter, she does have advanced directives in place, which indicates she is DNR with some exceptions. They will work on getting the paperwork brought here. 14. Case discussed with attending, who agrees upon care as described above. Job ID: [id number] MTDD
[2020-05-23 02:06] LABS: CKMB 0.7 ng/mL (0-6.6)
[2020-05-23 04:34] LABS: #Eosinphils 0.3 thou/uL (0.0-0.7); #Lymphocytes 2.3 thou/uL (1.20-3.40); #Monocytes 0.7 thou/uL (0.11-0.59); #Neutrophils 3.6 thou/uL (1.40-6.50); %Basophils 0.7 % (0.0-1.0); %Eosinophils 4.8 % (0.0-10.0); %Lymphocytes 33.5 % (21.0-51.0); %Monocytes 9.5 % (0.0-10.0); %Neutrophils 51.5 % (42.0-75.0); Hemoglobin 12.2 g/dL (12.0-16.0); Mean Corpuscular HGB CONC 32.8 g/dL (32.0-36.0); Mean Corpuscular Hemoglobin 30.7 pg (27.0-31.0); Mean Corpuscular Volume 93.6 fL (78.0-98.0); Platelet Count 160 thou/uL (130-400); RBC Distribution Width 12.7 % (11.5-14.5); Red Blood Cell (RBC) Count 3.98 mill/uL (4.20-5.40); White Blood Cell (WBC) Count 6.9 thou/uL (4.8-10.8)
[2020-05-23 04:55] LABS: Anion Gap 15 mmol/L (10-20); BUN (Urea Nitrogen) 17 mg/dL (9.8-20.1); Calc. Creatinine Clearance 57 mL/min (70-130); Calcium 8.9 mg/dL (7.8-10.44); Carbon Dioxide 25 mmol/L (23-31); Chloride 99 mmol/L (98-107); Estimated GFR-MDRD 61; Glucose 143 mg/dL (83-110); Magnesium 2.7 mg/dL (1.6-2.6); Sodium 135 mmol/L (136-145)
[2020-05-23] MEDS ORDERED: Cepastat Lozenges 1 LOZ PO PRN (08:23)
[2020-05-23] MEDS ORDERED: Ondansetron ODT 4 MG TAB PO PRN (08:23)
[2020-05-23] MEDS ORDERED: Diabetic Tussin 200 MG/10 ML UDCUP PO PRN (08:23)
[2020-05-23] MEDS ORDERED: Loperamide HCl 2 MG CAP PO PRN (08:23)
[2020-05-23] MEDS ORDERED: hydrALAZINE 20 MG/ML VIAL SLOW IVP PRN (08:23)
[2020-05-23] MEDS ORDERED: Bisacodyl 10 MG SUPP PR PRN (08:23)
[2020-05-23] MEDS ORDERED: Loratadine 10 MG TAB PO PRN (08:23)
[2020-05-23] MEDS ORDERED: Sodium Chloride 0.65% Nasal 44 ML BOT EA NARE PRN (08:23)
[2020-05-23] MEDS ORDERED: Temazepam 15 MG CAP PO PRN (08:23)
[2020-05-23] MEDS: Ondansetron PF 4 MG/2 ML Vial IVP PRN (09:27)
--- NOTE | 2020-05-23 09:28 | PDOC.HOSPP ---
- Subjective Encounter Date: 05/23/20 Encounter Time: 08:00 Subjective: Patient seen and examined bedside today, family member are present, patient does not have any further seizure while in hospital, no overnight event, patient does not have any headache or focal neurological deficit, family member reports that she had a Seth catheter placed at rehab. - Objective Vital Signs & Weight: Vital Signs (12 hours) Temp Pulse Resp BP Pulse Ox 05/23/20 07:04 97.6 F 58 L 14 148/61 H 94 L 05/23/20 04:00 97.7 F 55 L 19 123/60 91 L Weight Weight 155 lb 12.8 oz Result Diagrams: 05/23/20 04:24 05/23/20 04:24 Additional Labs: Accuchecks 05/23/20 05/22/20 06:04 22:11 POC Glucose 165 H 210 H Radiology Reviewed by me: Yes EKG Reviewed by me: Yes (NSR) Hospitalist ROS - Review of Systems Eyes: denies: pain, vision change, conjunctivae inflammation, eyelid inflammation, redness, other ENT: denies: ear pain, ear discharge, nose pain, nose discharge, nose congest ion, mouth pain, mouth swelling, throat pain, throat swelling, other Respiratory: denies: cough, dry, shortness of breath, hemoptysis, SOB with excertion, pleuritic pain, sputum, wheezing, other Cardiovascular: denies: chest pain, palpitations, orthopnea, paroxysmal noc. dyspnea, edema, light headedness, other Gastrointestinal: denies: nausea, vomiting, abdominal pain, diarrhea, constipation, melena, hematochezia, other Genitourinary: denies: dysuria, frequency, incontinence, hematuria, retention, other Musculoskeletal: denies: neck pain, shoulder pain, arm pain, back pain, hand pain, leg pain, foot pain, other - Medication Medications: Active Medications Generic Name Dose Route Start Last Admin Trade Name Freq PRN Reason Stop Dose Admin Famotidine 20 mg 05/22/20 21:00 05/22/20 22:38 Famotidine 20 Mg Tab PO 20 mg 2100 NICHOLE Administration Sodium Chloride 1,000 mls @ 45 mls/hr 05/22/20 23:45 05/23/20 02:43 Normal Saline 0.9% IV 1,000 mls .[id number] NICHOLE Administration - Exam General Appearance: NAD, ill appearing Eye: PERRL, anicteric sclera ENT: normocephalic atraumatic, no oropharyngeal lesions Neck: supple, symmetric, no JVD, no thyromegaly Heart: RRR, no murmur, no gallops, no rubs Respiratory: CTAB, no wheezes, no rales, no ronchi, normal chest expansion Gastrointestinal: soft, non-tender, non-distended, normal bowel sounds Extremities: no cyanosis, no clubbing, no edema Skin: normal turgor, no lesions Neurological: no focal deficits Musculoskeletal: generalized weakness, diffuse muscle atrophy Psychiatric: normal affect, normal behavior Hosp A/P (1) Generalized weakness Code(s): R53.1 - WEAKNESS Status: Acute Plan: Multifactorial etiology, including UTI dehydration and possibly related with seizure (2) Seizure Code(s): R56.9 - UNSPECIFIED CONVULSIONS Status: Acute Plan: This is suspected, neurology on the case, we are doing MRI brain and EEG today for further evaluation, her CT brain and CT [place] is unremarkable and patient does not have any focal neurological deficit at this point, no further seizure, will continue to monitor, doubt any further seizure medication required at this point if MRI and EEG normal, will defer to neurology (3) Type 2 myocardial infarction Code(s): I21.A1 - MYOCARDIAL INFARCTION TYPE 2 Status: Acute Plan: Probably related with a seizure and she has underlying coronary artery disease, this could be type II demand ischemia (4) UTI (urinary tract infection) due to urinary indwelling catheter Code(s): T83.511A - I/I REACT D/T INDWELLING URETHRAL CATHETER, INIT; N39.0 - URINARY TRACT INFECTION, SITE NOT SPECIFIED Status: Acute Qualifiers: Indwelling urinary catheter type: indwelling urethral catheter Encounter type: initial encounter Qualified Code(s): T83.511A - Infection and inflammatory reaction due to indwelling urethral catheter, initial encounter; N39.0 - Urinary tract infection, site not specified Plan: Patient has urinary catheter before admission, her urine analysis consistent with UTI, follow-up on culture result, currently on Rocephin, today we will try to discontinue Seth catheter and see if she can void by herself, will monitor with bladder scan, based on family member as patient has no ability to get out of bed that is why Seth catheter was placed at rehab (5) CAD (coronary artery disease) Code(s): I25.10 - ATHSCL HEART DISEASE OF [place] CORONARY ARTERY W/O ANG PCTRS Status: Chronic Qualifiers: Coronary Disease-Associated Artery/Lesion type: [place] artery [place] vs. transplanted heart: [place] heart Plan: Patient has several stent in coronary artery disease, will resume all her home medication, currently patient does not have any chest pain, (6) Physical deconditioning Code(s): R53.81 - OTHER MAL[place] Status: Acute Plan: Patient is at rehab getting more PT OT, eventual plan is to discharge her to rehab (7) Hypothyroid Code(s): E03.9 - HYPOTHYROIDISM, UNSPECIFIED Status: Chronic (8) Dehydration Code(s): E86.0 - DEHYDRATION Status: Acute - Plan old records reviewed/req, plan discussed w/ family, PT/OT, DVT proph w/lovenox Today MRI and EEG Follow-up on culture result Continue Rocephin Continue IV fluid Home medications reconciled Discussed with the family Discharge decision pending above
[2020-05-23] MEDS: Rosuvastatin 10 MG TAB PO SCH (12:11)
[2020-05-23] MEDS: risperiDONE 1 MG TAB PO SCH (12:12)
[2020-05-23] MEDS: Metoprolol Tartrate 50 MG TAB PO SCH (12:12)
[2020-05-23] MEDS: Losartan 25 MG TAB PO SCH (12:12)
--- NOTE | 2020-05-23 12:15 | CON ---
DATE OF CONSULTATION: 05/23/2020 REASON FOR CONSULTATION: Seizure-like activity/generalized weakness. HISTORY OF PRESENT ILLNESS: Ms. Rodriguez is a 79-year-old female with history significant for type 2 diabetes mellitus, coronary artery disease, hypertension, hyperlipidemia, hypothyroidism, peripheral neuropathy, presented to the emergency room, was transferred from the emergency room from Medicine because of physical conditioning. The patient is unable to provide the entire history and history is taken from the review of the medical records. Per ED notes, she has problems with her speech and has generalized weakness and there was witnessed seizure in the emergency room, so she was sent for further evaluation. The patient denies nausea, vomiting, headache, chest pain, abdominal pain, focal weakness, focal paresthesias, recent exposure to COVID or any sick contacts. In the emergency room at [facility], head CT was done, which did not reveal any acute intracranial pathology. Checks x-ray was done at outside facility, which showed superimposed infiltrate predominantly at the lung base. She also had labs done and urinalysis showed slightly cloudy urine with trace protein, leukocyte esterase and bacteria, so she was started on IV Rocephin for UTI. She was also given 500 mg IV of Keppra for seizures. REVIEW OF SYSTEMS: All systems were reviewed and were negative except the pertinent positives and negatives mentioned in the HPI. PAST MEDICAL HISTORY: Type 2 diabetes mellitus, coronary artery disease, hyperlipidemia, hypertension, hypothyroidism, peripheral neuropathy. PAST SURGICAL HISTORY: Carotid stent placement, right knee surgery, ear surgery, hysterectomy, appendectomy, bladder surgery. SOCIAL HISTORY: The patient is currently undergoing rehab. She lives with her family. Denies smoking, alcohol, illegal drug use. FAMILY HISTORY: No family history of epilepsy. ALLERGIES: CODEINE, MORPHINE, PENICILLIN. CURRENT MEDICATIONS: 1. Hydroxyzine 25 mg p.o. at bedtime. 2. Magnesium oxide 400 mg p.o. daily. 3. Ranolazine ER 1000 mg p.o. b.i.d. 4. Gabapentin 300 mg p.o. at bedtime. 5. Isosorbide mononitrate 6. Cozaar 50 mg p.o. daily. 7. Metoprolol tartrate 50 mg p.o. daily. 8. Risperdal 1 mg p.o. daily. 9. Lovastatin 40 mg p.o. daily. Vital Signs & Weight: Vital Signs (12 hours) Temp Pulse Resp BP Pulse Ox 05/23/20 07:04 97.6 F 58 L 14 148/61 H 94 L 05/23/20 04:00 97.7 F 55 L 19 123/60 91 L Weight Weight 155 lb 12.8 oz Additional Labs: Accuchecks 05/23/20 05/22/20 06:04 22:11 POC Glucose 165 H 210 H Radiology Reviewed by me: Yes EKG Reviewed by me: Yes (NSR) Active Medications Generic Name Dose Route Start Last Admin Trade Name Freq PRN Reason Stop Dose Admin Famotidine 20 mg 05/22/20 21:00 05/22/20 22:38 Famotidine 20 Mg Tab PO 20 mg 2100 NICHOLE Administration Sodium Chloride 1,000 mls @ 45 mls/hr 05/22/20 23:45 05/23/20 02:43 Normal Saline 0.9% IV 1,000 mls .[id number] NICHOLE Administration PHYSICAL EXAMINATION: General Appearance: NAD, ill appearing Eye: PERRL, anicteric sclera ENT: normocephalic atraumatic, no oropharyngeal lesions Neck: supple, symmetric, no JVD, no thyromegaly Heart: RRR, no murmur, no gallops, no rubs Respiratory: CTAB, no wheezes, no rales, no ronchi, normal chest expansion Gastrointestinal: soft, non-tender, non-distended, normal bowel sounds Extremities: no cyanosis, no clubbing, no edema Skin: normal turgor, no lesions Neurological: no focal deficits Musculoskeletal: generalized weakness, diffuse muscle atrophy Psychiatric: normal affect, normal behavior: Mental status: The patient is alert and oriented to person. She thinks she is at rehab at this time. She is not aware of the year or the week. Her speech is clear. Cranial nerves 2 through 12 intact. Motor, muscle tone and bulk are normal. Moving all 4 extremities equally and symmetrically. Sensory: Withdraws to nailbed pressure bilaterally. Cerebellar: did not cooperate with the exam. Gait deferred due to patient's safety reasons. DATA REVIEWED: I reviewed the CT scan which was negative for acute intracranial pathology. ASSESSMENT AND PLAN: (1) Generalized weakness Code(s): R53.1 - WEAKNESS Status: Acute (2) Seizure Code(s): R56.9 - UNSPECIFIED CONVULSIONS Status: Acute (3) Type 2 myocardial infarction Code(s): I21.A1 - MYOCARDIAL INFARCTION TYPE 2 Status: Acute (4) UTI (urinary tract infection) due to urinary indwelling catheter Code(s): T83.511A - I/I REACT D/T INDWELLING URETHRAL CATHETER, INIT; N39.0 - URINARY TRACT INFECTION, SITE NOT SPECIFIED Status: Acute (5) CAD (coronary artery disease) Code(s): I25.10 - ATHSCL HEART DISEASE OF [place] CORONARY ARTERY W/O ANG PCTRS Status: Chronic Qualifiers: Coronary Disease-Associated Artery/Lesion type: [place] artery [place] vs. transplanted heart: [place] heart (6) Physical deconditioning Code(s): R53.81 - OTHER MALAISE Status: Acute (7) Hypothyroid Code(s): E03.9 - HYPOTHYROIDISM, UNSPECIFIED Status: Chronic (8) Dehydration Code(s): E86.0 - DEHYDRATION Status: Acute Ms. Rodriguez is a 79-year-old female who presented with generalized weakness, lethargy and seizure-like activity. Head CT was unremarkable for acute intracranial pathology. EEG ongoing. We will follow up on the results. Consider MRI of the brain to evaluate for seizure focus. Neuro checks every 4 hours. Continue home medications. Continue Keppra for now for seizure prophylaxis. If both the MRI brain and EEG are negative then no need to continue Keppra for first-time seizure. Continue antibiotics for urinary tract infection. Continue medical management per primary team, PT/OT/Speech. Thank you for the consult. Job ID: [id number] [facility]
--- NOTE | 2020-05-23 12:57 | PDOC.EEG ---
Neurology EEG Report - Report Report: This EEG was performed using 24 channel [employer] video digital EEG machine with 24 disc electrodes. This was an extended 2-hour 5 minutes of inpatient video EEG recording. Digital analysis of the EEG was done for James and seizure detection which revealed no abnormalities. Background: The posterior background rhythm is 8.5 to 9 Hz minimal reactivity seen with eye opening and closure. Hyperventilation: Not performed Photic stimulation: No significant response seen with photic stimulation. Sleep: Drowsiness is observed EEG diagnosis: Occasional irregular theta activity seen during the recording. Clinical interpretation: This EEG is consistent with mild generalized nonspecific cerebral dysfunction.
[2020-05-23] MEDS: Senokot S 8.6-50 MG TAB PO PRN (13:19)
[2020-05-23] MEDS: Insulin Regular 300 UNITS/3 ML VIAL SC PRN (13:20)
[2020-05-23] MEDS ORDERED: Magnevist 469MG/ML 20 ML VIAL ONE (13:52)
[2020-05-23] MEDS: cefTRIAXone\\ROCEPHIN 1 GM in Sodium Chloride 0.9% 100 ML IVPB SCH (15:33)
--- NOTE | 2020-05-23 15:53 | MRI ---
Exam: Brain MRI with and without contrast HISTORY: Seizure, new onset. Evaluate for stroke COMPARISON: None FINDINGS: Gradient echo sequence: No hemorrhage Calvarium: Appropriate T1 marrow signal intensity Midline brain parenchyma: Unremarkable Cerebrum:No parenchymal mass, mass effect or midline shift. Brain volume, age-appropriate Cortical drummond-white white matter differentiation is preserved. T2 and FLAIR white matter hyperintensi ties due to chronic small vessel ischemic change. No MR evidence of mesial temporal sclerosis. Ventricles: No evidence of hydrocephalus. Sinuses and mastoid air cells: Adequate aeration Diffusion: Central arterial flow is maintained. Absent restricted diffusion. Postcontrast images: No pathologic enhancement of the brain parenchyma. IMPRESSION: 1. No pathologic enhancement of the brain parenchyma 2. Absent restricted diffusion. No acute infarct.
[2020-05-23] MEDS ORDERED: Haloperidol Lactate 5 MG/ML VIAL IM SCH (18:30)
[2020-05-24] MEDS: Famotidine 20 MG TAB PO SCH ×3 (01:25→21:47)
[2020-05-24] MEDS: Gabapentin 300 MG CAP PO SCH ×2 (01:26→21:23)
[2020-05-24] MEDS: Metoprolol Tartrate 50 MG TAB PO SCH (10:14)
[2020-05-24] MEDS: Rosuvastatin 10 MG TAB PO SCH (10:14)
[2020-05-24] MEDS: Losartan 25 MG TAB PO SCH (10:15)
[2020-05-24] MEDS: risperiDONE 1 MG TAB PO SCH (10:16)
[2020-05-24] MEDS: Enoxaparin Sodium 40 MG/0.4 ML SYRINGE SC SCH (10:16)
--- NOTE | 2020-05-24 12:17 | PDOC.NEUPN ---
- Subjective Encounter Date: 05/24/20 Subjective: No further seizures since admission. Patient somnolent but opens eyes to verbal stimuli. He does have an episode of confusion last night with hallucination according to family member. - Objective Vital Signs & Weight: Vital Signs (12 hours) Temp Pulse Pulse Resp BP BP Pulse Ox 05/24/20 11:10 56 L 146/65 H 05/24/20 07:30 98.3 F 60 16 154/65 H 99 05/24/20 04:00 97.8 F 57 L 14 176/72 H 97 Weight Admit Weight 155 lb 12.8 oz Weight 155 lb 12.8 oz I&O: 05/23/20 05/24/20 05/25/20 06:59 06:59 06:59 Intake Total 850 Output Total 1150 Balance -300 Result Diagrams: 05/23/20 04:24 05/23/20 04:24 Additional Labs: Accuchecks 05/24/20 05/24/20 05/23/20 10:34 05:31 16:32 POC Glucose 136 H 137 H 165 H Radiology Reviewed by me: Yes EKG Reviewed by me: Yes ROS - Review of Systems ROS unobtainable: due to mental status - Medication Medications: Active Medications Generic Name Dose Route Start Last Admin Trade Name Freq PRN Reason Stop Dose Admin Enoxaparin Sodium 40 mg 05/24/20 09:00 05/24/20 10:16 Enoxaparin Sodium 40 Mg/0.4 Ml Syringe SC 40 mg 0900 NICHOLE Administration Famotidine 20 mg 05/22/20 21:00 05/24/20 01:25 Famotidine 20 Mg Tab PO Not Given 2100 NICHOLE Gabapentin 300 mg 05/23/20 21:00 05/24/20 01:26 Gabapentin 300 Mg Cap PO Not Given HS NICHOLE Ceftriaxone Sodium 1 gm/ 100 mls @ 200 mls/hr 05/23/20 15:00 05/23/20 15:33 Sodium Chloride IVPB 100 mls Q24HR NICHOLE Administration Insulin Human Regular 0 units 05/23/20 13:15 05/23/20 13:20 Insulin Regular 300 Units/3 Ml Vial SC 4 unit .MODERATE SLIDING SC PRN Administration MODERATE SLIDING SCALE Protocol Isosorbide Mononitrate 30 mg 05/23/20 09:00 05/24/20 10:15 Isosorbide Mononitrate Er 30 Mg Tab PO 30 mg DAILY NICHOLE Administration Losartan Potassium 50 mg 05/23/20 09:00 05/24/20 10:15 Losartan 25 Mg Tab PO 50 mg DAILY NICHOLE Administration Metoprolol Tartrate 50 mg 05/23/20 09:00 05/24/20 10:14 Metoprolol Tartrate 50 Mg Tab PO 50 mg DAILY NICHOLE Administration Ondansetron HCl 4 mg 05/23/20 08:23 05/23/20 09:27 Ondansetron Pf 4 Mg/2 Ml Vial IVP 4 mg Q6H PRN Administration Nausea/Vomiting Ranolazine 1,000 mg 05/23/20 09:00 05/24/20 10:12 Ranolazine 500 Mg Tab PO 1,000 mg BID NICHOLE Administration Risperidone 1 mg 05/23/20 09:00 05/24/20 10:16 Risperidone 1 Mg Tab PO 1 mg DAILY NICHOLE Administration Rosuvastatin Calcium 40 mg 05/23/20 09:00 05/24/20 10:14 Rosuvastatin 10 Mg Tab PO 40 mg DAILY NICHOLE Administration Senna/Docusate Sodium 2 tab 05/23/20 08:23 05/23/20 13:19 Senokot S 8.6-50 Mg Tab PO 2 tab BIDPRN PRN Administration Constipation - Exam General Appearance: NAD Eye: PERRL ENT: normocephalic atraumatic Neck: supple, symmetric Respiratory: CTAB Cardiovascular: RRR Gastrointestinal: soft Extremities: no cyanosis Skin: normal turgor Neurological: no focal deficits, no new deficit Musculoskeletal: generalized weakness PSYCH: oriented to person, somnolent Results - Labs Result Diagrams: 05/23/20 04:24 05/23/20 04:24 Lab results: WBC 6.9 thou/uL (4.8-10.8) 05/23/20 04:24 Hgb 12.2 g/dL (12.0-16.0) 05/23/20 04:24 Hct 37.2 % (36.0-47.0) 05/23/20 04:24 MCV 93.6 fL (78.0-98.0) 05/23/20 04:24 Plt Count 160 thou/uL (130-400) 05/23/20 04:24 Neutrophils % 51.5 % (42.0-75.0) 05/23/20 04:24 Sodium 135 mmol/L (136-145) L 05/23/20 04:24 Potassium 4.0 mmol/L (3.5-5.1) 05/23/20 04:24 Chloride 99 mmol/L (98-107) 05/23/20 04:24 Carbon Dioxide 25 mmol/L (23-31) 05/23/20 04:24 BUN 17 mg/dL (9.8-20.1) 05/23/20 04:24 Creatinine 0.89 mg/dL (0.6-1.1) 05/23/20 04:24 Glucose 143 mg/dL (83-110) H 05/23/20 04:24 Lactic Acid 1.3 mmol/L (0.5-2.2) 05/22/20 21:45 Calcium 8.9 mg/dL (7.8-10.44) 05/23/20 04:24 Creatine Kinase 33 U/L (29-168) 05/22/20 21:45 CK-MB (CK-2) 0.7 ng/mL (0-6.6) 05/23/20 01:10 Troponin I 0.054 ng/mL (< 0.028) H 05/23/20 01:10 - EKG Interpretation EKG: Sinus rhythm - Radiology Interpretation MRI - head Status: image reviewed by me, report reviewed by me Additional Comment: MRI brain reviewed and was negative for acute intracranial pathology. PN A/P - Plan Daily Plan: plan discussed w/ family, PT/OT, speech therapy, DVT proph w/SCDs Ms. Rodriguez is a 79-year-old female who was consulted for altered mental status and possible seizure-like activity. Altered mental status seem multifactorial secondary to infectious and metabolic etiology. No further seizure-like activity noted since admission. EEG reviewed and was negative for seizure activity. MRI brain reviewed and was negative for acute intracranial pathology or seizure focus. Discontinue Keppra since it is not needed based on one-time seizure-like event. Observe seizure precautions. Ativan 2 mg IV for seizure greater than 2 minutes. Observe delirium precautions. Neurochecks every 4 hours. Telemetry Continue home medications. PT/OT/speech. Continue medical management per primary team. Plan discussed with the family member and also the nursing staff.
[2020-05-24] MEDS: cefTRIAXone\\ROCEPHIN 1 GM in Sodium Chloride 0.9% 100 ML IVPB SCH (15:44)
--- NOTE | 2020-05-24 16:35 | PDOC.HOSPP ---
- Subjective Encounter Date: 05/24/20 Encounter Time: 16:25 Subjective: f/u for AMS, UTI with Enterobacter on Rocephin currently. Mainly sleeping the majority of the day according to the daughter after she received Haldol. Currently in inpt rehab in [place] due to deconditioning. - Objective Vital Signs & Weight: Vital Signs (12 hours) Temp Pulse Pulse Pulse Resp BP BP 05/24/20 15:16 97.8 F 58 L 18 05/24/20 15:09 58 L 60 147/65 H 171/69 H 05/24/20 12:00 97.6 F 55 L 14 05/24/20 11:10 56 L 146/65 H 05/24/20 07:30 98.3 F 60 16 BP Pulse Ox 05/24/20 15:16 147/65 H 94 L 05/24/20 15:09 05/24/20 12:00 133/57 L 93 L 05/24/20 11:10 05/24/20 07:30 154/65 H 99 Weight Admit Weight 155 lb 12.8 oz Weight 155 lb 12.8 oz I&O: 05/23/20 05/24/20 05/25/20 06:59 06:59 06:59 Intake Total 850 Output Total 1150 Balance -300 Result Diagrams: 05/23/20 04:24 05/23/20 04:24 Additional Labs: Accuchecks 05/24/20 05/24/20 05/23/20 10:34 05:31 16:32 POC Glucose 136 H 137 H 165 H Microbiology 05/22/20 14:37 Urine agrawal catheter Urine Culture - Final Enterobacter aerogenes 05/22/20 08:25 Urine clean catch Urine Culture - Preliminary Gram Negative Asher 04/21/20 14:14 Venous blood - Right Arm Blood Culture - Preliminary Specimen has been received and culture in progress. No Growth to date. 04/21/20 14:14 Venous blood - Left Hand Blood Culture - Preliminary Specimen has been received and culture in progress. No Growth to date. Laboratory Tests 04/21/20 04/22/20 04/22/20 14:10 03:40 03:40 Hgb 13.0 Hct 39.1 Neutrophils % 76.5 H Hemoglobin A1c 7.8 H Magnesium Free T4 1.28 TSH 3rd Generation 0.0044 L Prolactin 04/22/20 05/22/20 05/23/20 03:40 22:21 04:24 Hgb Hct Neutrophils % 51.9 Hemoglobin A1c Magnesium 2.7 H Free T4 TSH 3rd Generation Prolactin 63.53 H 05/23/20 04:24 Hgb Hct Neutrophils % Hemoglobin A1c Magnesium Free T4 TSH 3rd Generation 0.0397 L Prolactin Radiology Reviewed by me: Yes (MRI brain - negative) EKG Reviewed by me: Yes (Tele - Sinus sav[place] in 50's) Hospitalist ROS - Medication Medications: Active Medications Generic Name Dose Route Start Last Admin Trade Name Freq PRN Reason Stop Dose Admin Enoxaparin Sodium 40 mg 05/24/20 09:00 05/24/20 10:16 Enoxaparin Sodium 40 Mg/0.4 Ml Syringe SC 40 mg 0900 NICHOLE Administration Famotidine 20 mg 05/22/20 21:00 05/24/20 01:25 Famotidine 20 Mg Tab PO Not Given 2100 NICHOLE Gabapentin 300 mg 05/23/20 21:00 05/24/20 01:26 Gabapentin 300 Mg Cap PO Not Given HS NICHOLE Ceftriaxone Sodium 1 gm/ 100 mls @ 200 mls/hr 05/23/20 15:00 05/24/20 15:44 Sodium Chloride IVPB 100 mls Q24HR NICHOLE Administration Insulin Human Regular 0 units 05/23/20 13:15 05/23/20 13:20 Insulin Regular 300 Units/3 Ml Vial SC 4 unit .MODERATE SLIDING SC PRN Administration MODERATE SLIDING SCALE Protocol Isosorbide Mononitrate 30 mg 05/23/20 09:00 05/24/20 10:15 Isosorbide Mononitrate Er 30 Mg Tab PO 30 mg DAILY NICHOLE Administration Losartan Potassium 50 mg 05/23/20 09:00 05/24/20 10:15 Losartan 25 Mg Tab PO 50 mg DAILY NICHOLE Administration Metoprolol Tartrate 50 mg 05/23/20 09:00 05/24/20 10:14 Metoprolol Tartrate 50 Mg Tab PO 50 mg DAILY NICHOLE Administration Ondansetron HCl 4 mg 05/23/20 08:23 05/23/20 09:27 Ondansetron Pf 4 Mg/2 Ml Vial IVP 4 mg Q6H PRN Administration Nausea/Vomiting Ranolazine 1,000 mg 05/23/20 09:00 05/24/20 10:12 Ranolazine 500 Mg Tab PO 1,000 mg BID NICHOLE Administration Risperidone 1 mg 05/23/20 09:00 05/24/20 10:16 Risperidone 1 Mg Tab PO 1 mg DAILY NICHOLE Administration Rosuvastatin Calcium 40 mg 05/23/20 09:00 05/24/20 10:14 Rosuvastatin 10 Mg Tab PO 40 mg DAILY NICHOLE Administration Senna/Docusate Sodium 2 tab 05/23/20 08:23 05/23/20 13:19 Senokot S 8.6-50 Mg Tab PO 2 tab BIDPRN PRN Administration Constipation - Exam General Appearance: ill appearing General - other findings: somnolent Eye: PERRL, anicteric sclera ENT: normocephalic atraumatic, dry oral mucosa Neck: supple, symmetric, no JVD, no thyromegaly, no lymphadenopathy Heart: RRR, no gallops, no rubs, normal peripheral pulses, murmur present Heart - other findings: S1, S2 Respiratory: CTAB, no wheezes, no rales, no ronchi, normal chest expansion Gastrointestinal: soft, non-tender, non-distended, normal bowel sounds, no palpable masses Extremities: no cyanosis, no clubbing, no edema Neurological: cranial nerve grossly intact Musculoskeletal: generalized weakness Psychiatric: oriented to person, somnolent, lethargic Hosp A/P (1) Seizure Code(s): R56.9 - UNSPECIFIED CONVULSIONS Status: Acute Plan: Secondary to UTI, continue Keppra, monitor for seizure recurrence (2) UTI (urinary tract infection) due to urinary indwelling catheter Code(s): T83.511A - I/I REACT D/T INDWELLING URETHRAL CATHETER, INIT; N39.0 - URINARY TRACT INFECTION, SITE NOT SPECIFIED Status: Acute Qualifiers: Indwelling urinary catheter type: indwelling urethral catheter Encounter type: initial encounter Qualified Code(s): T83.511A - Infection and inflammatory reaction due to indwelling urethral catheter, initial encounter; N39.0 - Urinary tract infection, site not specified Plan: Enterobacter spp, continue Rocephin IV (3) Acute metabolic encephalopathy Code(s): G93.41 - METABOLIC ENCEPHALOPATHY Status: Acute Plan: Multifactorial, continue Rocephin for UTI, limit sedation/pain meds (4) Generalized weakness Code(s): R53.1 - WEAKNESS Status: Chronic Plan: Continue PT/OT in rehab (5) Diabetes mellitus, type II, insulin dependent Code(s): E11.9 - TYPE 2 DIABETES MELLITUS WITHOUT COMPLICATIONS; Z79.4 - CUSTODIAL (CURRENT) USE OF INSULIN Status: Chronic Plan: ISS, ADA, serial accuchecks (6) Hypothyroid Code(s): E03.9 - HYPOTHYROIDISM, UNSPECIFIED Status: Chronic Plan: Resume home Synthroid - Plan plan discussed w/ family, continue antibiotics, PT/OT, social economist, out of bed/ambulate, DVT proph w/SCDs Stable currently Continue Rocephin IV Await final Ucx results PT for mobilization Limit sedation/pain meds D/C Agrawal catheter Resume Levothyroxine 88mcg daily
[2020-05-24] MEDS ORDERED: Dextrose 5% in Water 1,000 ML IV PRN (21:14)
[2020-05-24] MEDS ORDERED: Dextrose 50% Abboject 50 ML SYRINGE SLOW IVP PRN (21:14)
[2020-05-24] MEDS: Proctozone-HC 30 GM TUBE TOP SCH (21:24)
[2020-05-24] MEDS: Senokot S 8.6-50 MG TAB PO PRN (21:34)
[2020-05-25] MEDS: Senokot S 8.6-50 MG TAB PO PRN (06:16)
[2020-05-25] MEDS: Levothyroxine Sodium 88 MCG TAB PO SCH (06:16)
[2020-05-25] MEDS: Enoxaparin Sodium 40 MG/0.4 ML SYRINGE SC SCH (08:56)
[2020-05-25] MEDS: Metoprolol Tartrate 50 MG TAB PO SCH (08:57)
[2020-05-25] MEDS: Rosuvastatin 10 MG TAB PO SCH (08:57)
[2020-05-25] MEDS: risperiDONE 1 MG TAB PO SCH (08:57)
[2020-05-25] MEDS: Losartan 25 MG TAB PO SCH (08:57)
[2020-05-25] MEDS ORDERED: Fleet Enema 133 ML BOT PR SCH (12:00)
--- NOTE | 2020-05-25 12:06 | PDOC.HOSPP ---
- Subjective Encounter Date: 05/25/20 Encounter Time: 12:05 Subjective: f/u for seizures/UTI with Enterobacter on Rocephin. States retaining urine since last pm after Agrawal catheter removed. No urgency currently. Tolerating po intake. No BM x 5-6 days. - Objective Vital Signs & Weight: Vital Signs (12 hours) Temp Pulse Resp BP Pulse Ox 05/25/20 07:56 97.5 F L 60 16 194/74 H 95 05/25/20 04:39 96.7 F L 58 L 14 158/68 H 94 L Weight Admit Weight 155 lb 12.8 oz Weight 155 lb 12.8 oz I&O: 05/24/20 05/25/20 05/26/20 06:59 06:59 06:59 Intake Total 850 710 Output Total 1150 500 Balance -300 210 Result Diagrams: 05/23/20 04:24 05/23/20 04:24 Additional Labs: Accuchecks 05/24/20 05/24/20 20:48 16:53 POC Glucose 200 H 142 H Microbiology 05/22/20 14:37 Urine agrawal catheter Urine Culture - Final Enterobacter aerogenes 05/22/20 08:25 Urine clean catch Urine Culture - Preliminary Gram Negative Asher 04/21/20 14:14 Venous blood - Right Arm Blood Culture - Preliminary Specimen has been received and culture in progress. No Growth to date. 04/21/20 14:14 Venous blood - Left Hand Blood Culture - Preliminary Specimen has been received and culture in progress. No Growth to date. Laboratory Tests 04/21/20 04/22/20 04/22/20 14:10 03:40 03:40 Hgb 13.0 Hct 39.1 Neutrophils % 76.5 H Hemoglobin A1c 7.8 H Magnesium Free T4 1.28 TSH 3rd Generation 0.0044 L Prolactin 04/22/20 05/22/20 05/23/20 03:40 22:21 04:24 Hgb Hct Neutrophils % 51.9 Hemoglobin A1c Magnesium 2.7 H Free T4 TSH 3rd Generation Prolactin 63.53 H 05/23/20 04:24 Hgb Hct Neutrophils % Hemoglobin A1c Magnesium Free T4 TSH 3rd Generation 0.0397 L Prolactin EKG Reviewed by me: Yes (Tele - SR) Hospitalist ROS - Medication Medications: Active Medications Generic Name Dose Route Start Last Admin Trade Name Freq PRN Reason Stop Dose Admin Enoxaparin Sodium 40 mg 05/24/20 09:00 05/25/20 08:56 Enoxaparin Sodium 40 Mg/0.4 Ml Syringe SC 40 mg 0900 NICHOLE Administration Famotidine 20 mg 05/22/20 21:00 05/24/20 21:47 Famotidine 20 Mg Tab PO Not Given 2100 NICHOLE Gabapentin 300 mg 05/23/20 21:00 05/24/20 21:23 Gabapentin 300 Mg Cap PO 300 mg HS NICHOLE Administration Hydrocortisone 1 gm 05/24/20 21:00 05/24/20 21:24 Proctozone-Hc 30 Gm Tube TOP 1 applic BID NICHOLE Administration Ceftriaxone Sodium 1 gm/ 100 mls @ 200 mls/hr 05/23/20 15:00 05/24/20 15:44 Sodium Chloride IVPB 100 mls Q24HR NICHOLE Administration Insulin Human Regular 0 units 05/23/20 13:15 05/23/20 13:20 Insulin Regular 300 Units/3 Ml Vial SC 4 unit .MODERATE SLIDING SC PRN Administration MODERATE SLIDING SCALE Protocol Isosorbide Mononitrate 30 mg 05/23/20 09:00 05/25/20 08:57 Isosorbide Mononitrate Er 30 Mg Tab PO 30 mg DAILY NICHOLE Administration Levothyroxine Sodium 88 mcg 05/25/20 06:00 05/25/20 06:16 Levothyroxine Sodium 88 Mcg Tab PO 88 mcg 0600 NICHOLE Administration Losartan Potassium 50 mg 05/23/20 09:00 05/25/20 08:57 Losartan 25 Mg Tab PO 50 mg DAILY NICHOLE Administration Metoprolol Tartrate 50 mg 05/23/20 09:00 05/25/20 08:57 Metoprolol Tartrate 50 Mg Tab PO 50 mg DAILY NICHOLE Administration Ondansetron HCl 4 mg 05/23/20 08:23 05/23/20 09:27 Ondansetron Pf 4 Mg/2 Ml Vial IVP 4 mg Q6H PRN Administration Nausea/Vomiting Ranolazine 1,000 mg 05/23/20 09:00 05/25/20 09:03 Ranolazine 500 Mg Tab PO 1,000 mg BID NICHOLE Administration Risperidone 1 mg 05/23/20 09:00 05/25/20 08:57 Risperidone 1 Mg Tab PO 1 mg DAILY NICHOLE Administration Rosuvastatin Calcium 40 mg 05/23/20 09:00 05/25/20 08:57 Rosuvastatin 10 Mg Tab PO 40 mg DAILY NICHOLE Administration Senna/Docusate Sodium 2 tab 05/23/20 08:23 05/25/20 06:16 Senokot S 8.6-50 Mg Tab PO 2 tab BIDPRN PRN Administration Constipation - Exam General Appearance: NAD, awake alert Eye: PERRL, anicteric sclera ENT: normocephalic atraumatic, no oropharyngeal lesions Neck: supple, symmetric, no JVD, no thyromegaly, no lymphadenopathy Heart: RRR, no gallops, no rubs, normal peripheral pulses, murmur present Heart - other findings: S1, S2 Respiratory: CTAB, no wheezes, no rales, no ronchi, normal chest expansion, no tachypnea Gastrointestinal: soft, non-tender, non-distended, normal bowel sounds, no palpable masses Extremities: no cyanosis, no clubbing, no edema Skin: normal turgor Neurological: cranial nerve grossly intact, no new deficit Musculoskeletal: normal tone, generalized weakness Psychiatric: A&O x 3, flat affect Hosp A/P (1) Seizure Code(s): R56.9 - UNSPECIFIED CONVULSIONS Status: Acute Plan: No recurrent seizures, supportive mgmt, likely due to underlying metabolic process (2) UTI (urinary tract infection) due to urinary indwelling catheter Code(s): T83.511A - I/I REACT D/T INDWELLING URETHRAL CATHETER, INIT; N39.0 - URINARY TRACT INFECTION, SITE NOT SPECIFIED Status: Acute Qualifiers: Indwelling urinary catheter type: indwelling urethral catheter Encounter type: initial encounter Qualified Code(s): T83.511A - Infection and inflammatory reaction due to indwelling urethral catheter, initial encounter; N39.0 - Urinary tract infection, site not specified Plan: Continue Rocephin IV, likely transition to po option in 24h, Agrawal removed 05/24 but currently retaining urine (3) Acute metabolic encephalopathy Code(s): G93.41 - METABOLIC ENCEPHALOPATHY Status: Acute Plan: Improved, continue mgmt of underlying conditions, infection (4) Generalized weakness Code(s): R53.1 - WEAKNESS Status: Chronic (5) Diabetes mellitus, type II, insulin dependent Code(s): E11.9 - TYPE 2 DIABETES MELLITUS WITHOUT COMPLICATIONS; Z79.4 - SKILLED NURSING (CURRENT) USE OF INSULIN Status: Chronic (6) Hypothyroid Code(s): E03.9 - HYPOTHYROIDISM, UNSPECIFIED Status: Chronic (7) Urine retention Code(s): R33.9 - RETENTION OF URINE, UNSPECIFIED Status: Acute Plan: Repeat bladder scan, Flomax 0.4mg po x 1 now, may need to replace Agrawal and consider Urology evaluation - Plan plan discussed w/ family, continue antibiotics, PT/OT, group social worker, out of bed/ambulate, DVT proph w/SCDs Stable currently Continue Rocephin IV Start Flomax 0.4mg x 1 today PT for mobilization Limit sedation/pain meds Bladder scan today Consider Urology evaluation Resume Levothyroxine 88mcg daily
[2020-05-25] MEDS ORDERED: Tamsulosin HCl 0.4 MG CAP PO SCH (12:15)
[2020-05-25] MEDS: Proctozone-HC 30 GM TUBE TOP SCH ×2 (12:40→21:45)
[2020-05-25] MEDS: cefTRIAXone\\ROCEPHIN 1 GM in Sodium Chloride 0.9% 100 ML IVPB SCH (14:55)
[2020-05-25] MEDS: Insulin Regular 300 UNITS/3 ML VIAL SC PRN (18:07)
[2020-05-25] MEDS: Gabapentin 300 MG CAP PO SCH (21:44)
[2020-05-25] MEDS: HumaLOG 300 UNITS/3 ML VIAL SC PRN (21:48)
[2020-05-25] MEDS: Famotidine 20 MG TAB PO SCH (21:48)
[2020-05-26] MEDS: Insulin Regular 300 UNITS/3 ML VIAL SC PRN ×2 (06:19→18:06)
[2020-05-26] MEDS: Senokot S 8.6-50 MG TAB PO PRN (06:19)
[2020-05-26] MEDS: Levothyroxine Sodium 88 MCG TAB PO SCH (06:19)
[2020-05-26] MEDS ORDERED: Ciprofloxacin 500 MG TAB PO SCH (07:30)
[2020-05-26 08:05] LABS: #Eosinphils 0.2 thou/uL (0.0-0.7); #Lymphocytes 1.9 thou/uL (1.20-3.40); #Monocytes 0.5 thou/uL (0.11-0.59); #Neutrophils 2.9 thou/uL (1.40-6.50); %Basophils 0.7 % (0.0-1.0); %Eosinophils 4.1 % (0.0-10.0); %Monocytes 9.5 % (0.0-10.0); %Neutrophils 51.7 % (42.0-75.0); Hemoglobin 11.5 g/dL (12.0-16.0); Mean Corpuscular HGB CONC 33.1 g/dL (32.0-36.0); Mean Corpuscular Volume 93.5 fL (78.0-98.0); Platelet Count 128 thou/uL (130-400); RBC Distribution Width 12.2 % (11.5-14.5); White Blood Cell (WBC) Count 5.6 thou/uL (4.8-10.8)
[2020-05-26 08:24] LABS: ALT (SGPT) Less than 7 U/L (8-55); AST (SGOT) 14 U/L (5-34); Albumin 2.7 g/dL (3.4-4.8); Alkaline Phosphatase 51 U/L (40-110); Anion Gap 11 mmol/L (10-20); BUN (Urea Nitrogen) 21 mg/dL (9.8-20.1); Bilirubin, Total 0.4 mg/dL (0.2-1.2); Calc. Creatinine Clearance 52 mL/min (70-130); Calcium 8.9 mg/dL (7.8-10.44); Carbon Dioxide 33 mmol/L (23-31); Chloride 101 mmol/L (98-107); Estimated GFR-MDRD 55; Globulin 2.6 g/dL (2.4-3.5); Glucose 185 mg/dL (83-110); Protein, Total 5.3 g/dL (6.0-8.3); Sodium 141 mmol/L (136-145)
[2020-05-26] MEDS: Proctozone-HC 30 GM TUBE TOP SCH ×2 (08:37→21:57)
[2020-05-26] MEDS: Losartan 25 MG TAB PO SCH (08:38)
[2020-05-26] MEDS: Rosuvastatin 10 MG TAB PO SCH (08:38)
[2020-05-26] MEDS: Polyethylene Glycol 3350 17 GM Packet PO SCH (08:38)
[2020-05-26] MEDS: risperiDONE 1 MG TAB PO SCH (08:39)
[2020-05-26] MEDS: Docusate 100 MG CAP PO SCH ×2 (08:39→21:56)
[2020-05-26] MEDS: Tamsulosin HCl 0.4 MG CAP PO SCH (08:40)
[2020-05-26] MEDS: Enoxaparin Sodium 40 MG/0.4 ML SYRINGE SC SCH (08:40)
[2020-05-26] MEDS: Metoprolol Tartrate 50 MG TAB PO SCH (08:44)
[2020-05-26] MEDS ORDERED: GoLYTELY 4,000 ml Bottle PO SCH (10:00)
[2020-05-26] MEDS ORDERED: Magnesium Citrate 300 ML BOT PO SCH (10:15)
[2020-05-26] MEDS: Ondansetron PF 4 MG/2 ML Vial IVP PRN (11:52)
--- NOTE | 2020-05-26 12:05 | PDOC.HOSPP ---
- Subjective Encounter Date: 05/26/20 Encounter Time: 10:00 Subjective: no sob or specific weakness is eating better but still less per daughter at bedside moves all extremities has been wheel chair bound from almost a year now - Objective Vital Signs & Weight: Vital Signs (12 hours) Temp Pulse Resp BP Pulse Ox 05/26/20 11:51 97.7 F 54 L 20 148/59 H 98 05/26/20 08:35 97.6 F 57 L 16 150/61 H 94 L 05/26/20 04:00 97.6 F 63 16 135/64 91 L Weight Admit Weight 155 lb 12.8 oz Weight 155 lb 12.8 oz I&O: 05/25/20 05/26/20 05/27/20 06:59 06:59 06:59 Intake Total 710 Output Total 500 125 Balance 210 -125 Result Diagrams: 05/26/20 07:47 05/26/20 07:47 Additional Labs: Accuchecks 05/26/20 05/26/20 05/25/20 10:41 05:32 21:12 POC Glucose 193 H 186 H 258 H 05/25/20 17:13 POC Glucose 209 H Hospitalist ROS - Medication Medications: Active Medications Generic Name Dose Route Start Last Admin Trade Name Freq PRN Reason Stop Dose Admin Docusate Sodium 100 mg 05/26/20 09:00 05/26/20 08:39 Docusate 100 Mg Cap PO Not Given BID NICHOLE Enoxaparin Sodium 40 mg 05/24/20 09:00 05/26/20 08:40 Enoxaparin Sodium 40 Mg/0.4 Ml Syringe SC 40 mg 0900 NICHOLE Administration Famotidine 20 mg 05/22/20 21:00 05/25/20 21:48 Famotidine 20 Mg Tab PO Not Given 2100 NICHOLE Gabapentin 300 mg 05/23/20 21:00 05/25/20 21:44 Gabapentin 300 Mg Cap PO 300 mg HS NICHOLE Administration Hydrocortisone 1 gm 05/24/20 21:00 05/26/20 08:37 Proctozone-Hc 30 Gm Tube TOP 1 applic BID NICHOLE Administration Insulin Human Lispro 0 units 05/24/20 21:14 05/25/20 21:48 Humalog 300 Units/3 Ml Vial SC 3 unit .BEDTIME SLIDING SC PRN Administration Bedtime Correctional Scale Insulin Human Regular 0 units 05/23/20 13:15 05/26/20 06:19 Insulin Regular 300 Units/3 Ml Vial SC 2 unit .MODERATE SLIDING SC PRN Administration MODERATE SLIDING SCALE Protocol Isosorbide Mononitrate 30 mg 05/23/20 09:00 05/26/20 08:39 Isosorbide Mononitrate Er 30 Mg Tab PO 30 mg DAILY NICHOLE Administration Levothyroxine Sodium 88 mcg 05/25/20 06:00 05/26/20 06:19 Levothyroxine Sodium 88 Mcg Tab PO 88 mcg 0600 NICHOLE Administration Losartan Potassium 50 mg 05/23/20 09:00 05/26/20 08:38 Losartan 25 Mg Tab PO 50 mg DAILY NICHOLE Administration Magnesium Citrate 300 ml 05/26/20 10:15 05/26/20 11:15 Magnesium Citrate 300 Ml Bot PO 05/26/20 16:00 300 ml NOW NICHOLE Administration Metoprolol Tartrate 50 mg 05/23/20 09:00 05/26/20 08:44 Metoprolol Tartrate 50 Mg Tab PO 50 mg DAILY NICHOLE Administration Ondansetron HCl 4 mg 05/23/20 08:23 05/26/20 11:52 Ondansetron Pf 4 Mg/2 Ml Vial IVP 4 mg Q6H PRN Administration Nausea/Vomiting Polyethylene Glycol 17 gm 05/26/20 09:00 05/26/20 08:38 Polyethylene Glycol 3350 17 Gm Packet PO 17 gm DAILY NICHOLE Administration Ranolazine 1,000 mg 05/23/20 09:00 05/26/20 08:37 Ranolazine 500 Mg Tab PO 1,000 mg BID NICHOLE Administration Risperidone 1 mg 05/23/20 09:00 05/26/20 08:39 Risperidone 1 Mg Tab PO 1 mg DAILY NICHOLE Administration Rosuvastatin Calcium 40 mg 05/23/20 09:00 05/26/20 08:38 Rosuvastatin 10 Mg Tab PO 40 mg DAILY NICHOLE Administration Senna/Docusate Sodium 2 tab 05/23/20 08:23 05/26/20 06:19 Senokot S 8.6-50 Mg Tab PO 2 tab BIDPRN PRN Administration Constipation Sodium Chloride 10 ml 05/22/20 20:42 05/26/20 08:40 Flush - Normal Saline 10 Ml Syringe IVF 10 ml Q12HR PRN Administration Saline Flush Tamsulosin HCl 0.4 mg 05/26/20 09:00 05/26/20 08:40 Tamsulosin Hcl 0.4 Mg Cap PO 0.4 mg DAILY NICHOLE Administration - Exam General Appearance: awake alert Eye: PERRL, anicteric sclera ENT: no oropharyngeal lesions, moist mucosa Neck: supple, no JVD Heart: RRR, no murmur Respiratory: no wheezes, no rales Gastrointestinal: soft, non-tender, non-distended, normal bowel sounds Extremities: no cyanosis, no edema Neurological: cranial nerve grossly intact, no focal deficits Hosp A/P (1) Acute metabolic encephalopathy Code(s): G93.41 - METABOLIC ENCEPHALOPATHY Status: Resolved (2) Dehydration Code(s): E86.0 - DEHYDRATION Status: Resolved (3) Physical deconditioning Code(s): R53.81 - OTHER MALAISE Status: Acute (4) Seizure Code(s): R56.9 - UNSPECIFIED CONVULSIONS Status: Resolved (5) UTI (urinary tract infection) due to urinary indwelling catheter Code(s): T83.511A - I/I REACT D/T INDWELLING URETHRAL CATHETER, INIT; N39.0 - URINARY TRACT INFECTION, SITE NOT SPECIFIED Status: Acute Qualifiers: Indwelling urinary catheter type: indwelling urethral catheter Encounter type: subsequent encounter Qualified Code(s): T83.511D - Infection and inflammatory reaction due to indwelling urethral catheter, subsequent encounter; N39.0 - Urinary tract infection, site not specified (6) Urine retention Code(s): R33.9 - RETENTION OF URINE, UNSPECIFIED Status: Acute (7) CAD (coronary artery disease) Code(s): I25.10 - ATHSCL HEART DISEASE OF [place] CORONARY ARTERY W/O ANG PCTRS Status: Chronic Qualifiers: Coronary Disease-Associated Artery/Lesion type: [place] artery [place] vs. transplanted heart: ute heart (8) Hypoglycemia Code(s): E16.2 - HYPOGLYCEMIA, UNSPECIFIED Status: Resolved (9) Diabetes mellitus, type II, insulin dependent Code(s): E11.9 - TYPE 2 DIABETES MELLITUS WITHOUT COMPLICATIONS; Z79.4 - LONG TE RM (CURRENT) USE OF INSULIN Status: Chronic (10) HTN (hypertension) Code(s): I10 - ESSENTIAL (PRIMARY) HYPERTENSION Status: Chronic Qualifiers: Hypertension type: essential hypertension Qualified Code(s): I10 - Essential (primary) hypertension (11) Hypothyroid Code(s): E03.9 - HYPOTHYROIDISM, UNSPECIFIED Status: Chronic Qualifiers: Hypothyroidism type: unspecified Qualified Code(s): E03.9 - Hypothyroidism, unspecified - Plan hemostable no further seizures/seizure like activity again is on cipro for uti with enterobacter aerogenes has agrawal placed back due to retention of >500ml constipation, no response to stool softeners and enema, will give a dose of mg citrate PT to mobilize as tolerated initial hypothermia and hypoglycemia has resolved encourage po intake cm consultation to go back to [facility] bed in am if stable continue imdur, lopressor, risperdal, crestor, synthroid
[2020-05-26] MEDS: Famotidine 20 MG TAB PO SCH (21:56)
[2020-05-26] MEDS: Gabapentin 300 MG CAP PO SCH (21:56)
[2020-05-26] MEDS: Ciprofloxacin 500 MG TAB PO SCH (21:56)
[2020-05-26] MEDS: Sodium Chloride 0.9% 1,000 ML IV SCH (22:33)
[2020-05-27] MEDS: Levothyroxine Sodium 88 MCG TAB PO SCH (06:39)
[2020-05-27] MEDS: Ciprofloxacin 500 MG TAB PO SCH ×2 (06:39→21:27)
[2020-05-27] MEDS: Polyethylene Glycol 3350 17 GM Packet PO SCH (09:12)
[2020-05-27] MEDS: Docusate 100 MG CAP PO SCH ×2 (09:12→21:19)
[2020-05-27] MEDS: Sodium Chloride 0.9% 1,000 ML IV SCH ×2 (09:13→17:26)
[2020-05-27] MEDS: Proctozone-HC 30 GM TUBE TOP SCH ×2 (09:13→21:38)
--- NOTE | 2020-05-27 11:01 | PDOC.HOSPP ---
- Subjective Encounter Date: 05/27/20 Encounter Time: 10:00 Subjective: passed stool yesterday with mg citrate is not eating much urine is high colored - Objective Vital Signs & Weight: Vital Signs (12 hours) Temp Pulse Resp BP Pulse Ox 05/27/20 07:50 98.3 F 99 18 132/53 L 100 05/27/20 04:19 97.8 F 68 16 150/63 H 99 Weight Admit Weight 155 lb 12.8 oz Weight 155 lb 12.8 oz I&O: 05/26/20 05/27/20 05/28/20 06:59 06:59 06:59 Intake Total 730 Output Total 125 180 Balance -125 550 Result Diagrams: 05/26/20 07:47 05/26/20 07:47 Additional Labs: Accuchecks 05/27/20 05/26/20 05/26/20 10:48 21:53 16:36 POC Glucose 180 H 209 H 242 H 05/25/20 05/25/20 05/25/20 17:13 10:57 05:53 POC Glucose 209 H 203 H 151 H Hospitalist ROS - Medication Medications: Active Medications Generic Name Dose Route Start Last Admin Trade Name Freq PRN Reason Stop Dose Admin Ciprofloxacin 500 mg 05/26/20 20:00 05/27/20 06:39 Ciprofloxacin 500 Mg Tab PO Not Given 06,1999 NICHOLE Docusate Sodium 100 mg 05/26/20 09:00 05/27/20 09:12 Docusate 100 Mg Cap PO Not Given BID NICHOLE Enoxaparin Sodium 40 mg 05/24/20 09:00 05/26/20 08:40 Enoxaparin Sodium 40 Mg/0.4 Ml Syringe SC 40 mg 0900 NICHOLE Administration Famotidine 20 mg 05/22/20 21:00 05/26/20 21:56 Famotidine 20 Mg Tab PO Not Given 2100 NICHOLE Gabapentin 300 mg 05/23/20 21:00 05/26/20 21:56 Gabapentin 300 Mg Cap PO 300 mg HS NICHOLE Administration Hydrocortisone 1 gm 05/24/20 21:00 05/27/20 09:13 Proctozone-Hc 30 Gm Tube TOP 1 applic BID NICHOLE Administration Sodium Chloride 1,000 mls @ 100 mls/hr 05/26/20 23:00 05/27/20 09:13 Normal Saline 0.9% IV 1,000 mls .Q10H NICHOLE Administration Insulin Human Lispro 0 units 05/24/20 21:14 05/25/20 21:48 Humalog 300 Units/3 Ml Vial SC 3 unit .BEDTIME SLIDING SC PRN Administration Bedtime Correctional Scale Insulin Human Regular 0 units 05/23/20 13:15 05/26/20 18:06 Insulin Regular 300 Units/3 Ml Vial SC 4 unit .MODERATE SLIDING SC PRN Administration MODERATE SLIDING SCALE Protocol Isosorbide Mononitrate 30 mg 05/23/20 09:00 05/26/20 08:39 Isosorbide Mononitrate Er 30 Mg Tab PO 30 mg DAILY NICHOLE Administration Levothyroxine Sodium 88 mcg 05/25/20 06:00 05/27/20 06:39 Levothyroxine Sodium 88 Mcg Tab PO Not Given 0600 NICHOLE Losartan Potassium 50 mg 05/23/20 09:00 05/26/20 08:38 Losartan 25 Mg Tab PO 50 mg DAILY NICHOLE Administration Metoprolol Tartrate 50 mg 05/23/20 09:00 05/26/20 08:44 Metoprolol Tartrate 50 Mg Tab PO 50 mg DAILY NICHOLE Administration Ondansetron HCl 4 mg 05/23/20 08:23 05/26/20 11:52 Ondansetron Pf 4 Mg/2 Ml Vial IVP 4 mg Q6H PRN Administration Nausea/Vomiting Polyethylene Glycol 17 gm 05/26/20 09:00 05/27/20 09:12 Polyethylene Glycol 3350 17 Gm Packet PO Not Given DAILY NICHOLE Ranolazine 1,000 mg 05/23/20 09:00 05/26/20 21:56 Ranolazine 500 Mg Tab PO 1,000 mg BID NICHOLE Administration Risperidone 1 mg 05/23/20 09:00 05/26/20 08:39 Risperidone 1 Mg Tab PO 1 mg DAILY NICHOLE Administration Rosuvastatin Calcium 40 mg 05/23/20 09:00 05/26/20 08:38 Rosuvastatin 10 Mg Tab PO 40 mg DAILY NICHOLE Administration Senna/Docusate Sodium 2 tab 05/23/20 08:23 05/26/20 06:19 Senokot S 8.6-50 Mg Tab PO 2 tab BIDPRN PRN Administration Constipation Sodium Chloride 10 ml 05/22/20 20:42 05/26/20 08:40 Flush - Normal Saline 10 Ml Syringe IVF 10 ml Q12HR PRN Administration Saline Flush Tamsulosin HCl 0.4 mg 05/26/20 09:00 05/26/20 08:40 Tamsulosin Hcl 0.4 Mg Cap PO 0.4 mg DAILY NICHOLE Administration - Exam General Appearance: awake alert Eye: PERRL, anicteric sclera ENT: no oropharyngeal lesions, moist mucosa Neck: supple, no JVD Heart: RRR, no murmur Respiratory: no wheezes, no rales Gastrointestinal: soft, non-tender, non-distended, normal bowel sounds Extremities: no cyanosis, no edema Neurological: cranial nerve grossly intact, no focal deficits Hosp A/P (1) Acute metabolic encephalopathy Code(s): G93.41 - METABOLIC ENCEPHALOPATHY Status: Resolved (2) Dehydration Code(s): E86.0 - DEHYDRATION Status: Resolved (3) Physical deconditioning Code(s): R53.81 - OTHER MALAISE Status: Acute (4) Seizure Code(s): R56.9 - UNSPECIFIED CONVULSIONS Status: Resolved (5) UTI (urinary tract infection) due to urinary indwelling catheter Code(s): T83.511A - I/I REACT D/T INDWELLING URETHRAL CATHETER, INIT; N39.0 - URINARY TRACT INFECTION, SITE NOT SPECIFIED Status: Acute Qualifiers: Indwelling urinary catheter type: indwelling urethral catheter Encounter type: subsequent encounter Qualified Code(s): T83.511D - Infection and inflammatory reaction due to indwelling urethral catheter, subsequent encounter; N39.0 - Urinary tract infection, site not specified (6) Urine retention Code(s): R33.9 - RETENTION OF URINE, UNSPECIFIED Status: Acute (7) CAD (coronary artery disease) Code(s): I25.10 - ATHSCL HEART DISEASE OF [place] CORONARY ARTERY W/O ANG PCTRS Status: Chronic Qualifiers: Coronary Disease-Associated Artery/Lesion type: [place] artery [place] vs. transplanted heart: [place] heart (8) Hypoglycemia Code(s): E16.2 - HYPOGLYCEMIA, UNSPECIFIED Status: Resolved (9) Diabetes mellitus, type II, insulin dependent Code(s): E11.9 - TYPE 2 DIABETES MELLITUS WITHOUT COMPLICATIONS; Z79.4 - ENGRAVER BLOCK (CURRENT) USE OF INSULIN Status: Chronic (10) HTN (hypertension) Code(s): I10 - ESSENTIAL (PRIMARY) HYPERTENSION Status: Chronic Qualifiers: Hypertension type: essential hypertension Qualified Code(s): I10 - Essential (primary) hypertension (11) Hypothyroid Code(s): E03.9 - HYPOTHYROIDISM, UNSPECIFIED Status: Chronic Qualifiers: Hypothyroidism type: unspecified Qualified Code(s): E03.9 - Hypothyroidism, unspecified - Plan iv fluids, inadequate oral intake no further seizures/seizure like activity again is on cipro for uti with enterobacter aerogenes has agrawal placed back due to retention of >500ml constipation resoved with a dose of mg citrate PT to mobilize as tolerated initial hypothermia and hypoglycemia has resolved encourage po intake cm to arrange tx to [facility] bed in am if stable (d/w on 05/26, they were unable to take her on weekend) continue imdur, lopressor, risperdal, crestor, synthroid
[2020-05-27] MEDS: Rosuvastatin 10 MG TAB PO SCH (11:22)
[2020-05-27] MEDS: Losartan 25 MG TAB PO SCH (11:24)
[2020-05-27] MEDS: Tamsulosin HCl 0.4 MG CAP PO SCH (11:24)
[2020-05-27] MEDS: Metoprolol Tartrate 50 MG TAB PO SCH (11:26)
[2020-05-27] MEDS: risperiDONE 1 MG TAB PO SCH (11:26)
[2020-05-27] MEDS: Enoxaparin Sodium 40 MG/0.4 ML SYRINGE SC SCH (11:28)
[2020-05-27] MEDS: Insulin Regular 300 UNITS/3 ML VIAL SC PRN (17:25)
[2020-05-27] MEDS: Famotidine 20 MG TAB PO SCH (21:24)
[2020-05-27] MEDS: Gabapentin 300 MG CAP PO SCH (21:27)
[2020-05-28 05:05] LABS: Anion Gap 10 mmol/L (10-20); BUN (Urea Nitrogen) 22 mg/dL (9.8-20.1); Calc. Creatinine Clearance 58 mL/min (70-130); Calcium 8.2 mg/dL (7.8-10.44); Carbon Dioxide 27 mmol/L (23-31); Chloride 103 mmol/L (98-107); Estimated GFR-MDRD 63; Glucose 126 mg/dL (83-110); Potassium 3.8 mmol/L (3.5-5.1); Sodium 136 mmol/L (136-145)
[2020-05-28 05:28] LABS: #Eosinphils 0.2 thou/uL (0.0-0.7); #Lymphocytes 1.7 thou/uL (1.20-3.40); #Monocytes 0.8 thou/uL (0.11-0.59); #Neutrophils 6.7 thou/uL (1.40-6.50); %Basophils 0.3 % (0.0-1.0); %Eosinophils 1.8 % (0.0-10.0); %Lymphocytes 18.1 % (21.0-51.0); %Monocytes 8.5 % (0.0-10.0); %Neutrophils 71.3 % (42.0-75.0); Hemoglobin 10.1 g/dL (12.0-16.0); Mean Corpuscular HGB CONC 33.1 g/dL (32.0-36.0); Mean Corpuscular Hemoglobin 31.5 pg (27.0-31.0); Mean Corpuscular Volume 95.2 fL (78.0-98.0); Mean Platelet Volume 7.8 fL (7.4-10.4); Platelet Count 117 thou/uL (130-400); Platelet Morphology Comment Appears Decreased; RBC Distribution Width 12.5 % (11.5-14.5); White Blood Cell (WBC) Count 9.4 thou/uL (4.8-10.8)
[2020-05-28] MEDS: Levothyroxine Sodium 88 MCG TAB PO SCH (06:39)
[2020-05-28] MEDS: Sodium Chloride 0.9% 1,000 ML IV SCH ×2 (06:39→11:47)
[2020-05-28] MEDS: Ciprofloxacin 500 MG TAB PO SCH ×2 (06:39→22:27)
[2020-05-28] MEDS: Rosuvastatin 10 MG TAB PO SCH (09:11)
[2020-05-28] MEDS: Metoprolol Tartrate 50 MG TAB PO SCH (09:11)
[2020-05-28] MEDS: Losartan 25 MG TAB PO SCH (09:12)
[2020-05-28] MEDS: Polyethylene Glycol 3350 17 GM Packet PO SCH (09:13)
[2020-05-28] MEDS: Enoxaparin Sodium 40 MG/0.4 ML SYRINGE SC SCH (09:13)
[2020-05-28] MEDS: Docusate 100 MG CAP PO SCH ×2 (09:13→22:28)
[2020-05-28] MEDS: Tamsulosin HCl 0.4 MG CAP PO SCH (09:13)
[2020-05-28] MEDS: Proctozone-HC 30 GM TUBE TOP SCH ×2 (09:13→22:21)
[2020-05-28] MEDS: risperiDONE 1 MG TAB PO SCH (09:21)
--- NOTE | 2020-05-28 10:14 | PDOC.HOSPP ---
- Subjective Encounter Date: 05/28/20 Subjective: Patient reports she is doing ok this morning. She did not eat breakfast and her appetite remains poor overall. Had some low level hallucinations last night per her daughter who arrived yesterday. Has had increasing issues with food textures. Tends to have vomiting with any supplement drinks. She has had the Seth for a while, but she is not sure exactly how long. Failed an attempt at removal here, prior to addressing the constipation. Daughter does not believe she is at a rehab level yet. - Objective Vital Signs & Weight: Vital Signs (12 hours) Temp Pulse Resp BP Pulse Ox 05/28/20 08:00 147/65 H 05/28/20 07:56 97.1 F L 59 L 16 96 05/28/20 03:05 97.6 F 60 20 131/53 L 98 05/27/20 23:07 97.8 F 60 20 130/63 96 Weight Admit Weight 155 lb 12.8 oz Weight 155 lb 12.8 oz I&O: 05/27/20 05/28/20 05/29/20 06:59 06:59 06:59 Intake Total 730 1240 Output Total 180 400 Balance 550 840 Result Diagrams: 05/28/20 04:22 05/28/20 04:22 Additional Labs: Accuchecks 05/28/20 05/27/20 05/27/20 05:09 21:29 16:58 POC Glucose 123 H 186 H 217 H 05/27/20 10:48 POC Glucose 180 H Hospitalist ROS - Medication Medications: Active Medications Generic Name Dose Route Start Last Admin Trade Name Valeriano PRN Reason Stop Dose Admin Ciprofloxacin 500 mg 05/26/20 20:00 05/28/20 06:39 Ciprofloxacin 500 Mg Tab PO 500 mg 06,1999 [facility] Administration Docusate Sodium 100 mg 05/26/20 09:00 05/28/20 09:13 Docusate 100 Mg Cap PO Not Given BID [facility] Enoxaparin Sodium 40 mg 05/24/20 09:00 05/28/20 09:13 Enoxaparin Sodium 40 Mg/0.4 Ml Syringe SC Not Given 0900 [facility] Famotidine 20 mg 05/22/20 21:00 05/27/20 21:24 Famotidine 20 Mg Tab PO Not Given 2100 [facility] Gabapentin 300 mg 05/23/20 21:00 05/27/20 21:27 Gabapentin 300 Mg Cap PO 300 mg HS [facility] Administration Hydrocortisone 1 gm 05/24/20 21:00 05/28/20 09:13 Proctozone-Hc 30 Gm Tube TOP 1 applic BID [facility] Administration Insulin Human Lispro 0 units 05/24/20 21:14 05/25/20 21:48 Humalog 300 Units/3 Ml Vial SC 3 unit .BEDTIME SLIDING SC PRN Administration Bedtime Correctional Scale Insulin Human Regular 0 units 05/23/20 13:15 05/27/20 17:25 Insulin Regular 300 Units/3 Ml Vial SC 4 unit .MODERATE SLIDING SC PRN Administration MODERATE SLIDING SCALE Protocol Isosorbide Mononitrate 30 mg 05/23/20 09:00 05/28/20 09:11 Isosorbide Mononitrate Er 30 Mg Tab PO 30 mg DAILY [facility] Administration Levothyroxine Sodium 88 mcg 05/25/20 06:00 05/28/20 06:39 Levothyroxine Sodium 88 Mcg Tab PO 88 mcg 0600 [facility] Administration Losartan Potassium 50 mg 05/23/20 09:00 05/28/20 09:12 Losartan 25 Mg Tab PO 50 mg DAILY [facility] Administration Metoprolol Tartrate 50 mg 05/23/20 09:00 05/28/20 09:11 Metoprolol Tartrate 50 Mg Tab PO 50 mg DAILY [facility] Administration Ondansetron HCl 4 mg 05/23/20 08:23 05/26/20 11:52 Ondansetron Pf 4 Mg/2 Ml Vial IVP 4 mg Q6H PRN Administration Nausea/Vomiting Polyethylene Glycol 17 gm 05/26/20 09:00 05/28/20 09:13 Polyethylene Glycol 3350 17 Gm Packet PO Not Given DAILY [facility] Ranolazine 1,000 mg 05/23/20 09:00 05/28/20 09:11 Ranolazine 500 Mg Tab PO 1,000 mg BID [facility] Administration Risperidone 1 mg 05/23/20 09:00 05/28/20 09:21 Risperidone 1 Mg Tab PO Not Given DAILY [facility] Rosuvastatin Calcium 40 mg 05/23/20 09:00 05/28/20 09:11 Rosuvastatin 10 Mg Tab PO 40 mg DAILY [facility] Administration Senna/Docusate Sodium 2 tab 05/23/20 08:23 05/26/20 06:19 Senokot S 8.6-50 Mg Tab PO 2 tab BIDPRN PRN Administration Constipation Sodium Chloride 10 ml 05/22/20 20:42 05/26/20 08:40 Flush - Normal Saline 10 Ml Syringe IVF 10 ml Q12HR PRN Administration Saline Flush Tamsulosin HCl 0.4 mg 05/26/20 09:00 05/28/20 09:13 Tamsulosin Hcl 0.4 Mg Cap PO 0.4 mg DAILY [facility] Administration - Exam General Appearance: NAD, awake alert Heart: RRR, no gallops, no rubs, normal peripheral pulses, II/IV Respiratory: CTAB, no wheezes, no rales, no ronchi, normal chest expansion, no tachypnea, normal percussion Gastrointestinal: soft, non-tender, non-distended, normal bowel sounds, no pa lpable masses, no hepatomegaly, no splenomegaly, no bruit Extremities: no cyanosis, no clubbing, no edema Skin: normal turgor Neurological: no focal deficits Musculoskeletal: generalized weakness Psychiatric: normal affect, normal behavior Hosp A/P (1) Acute metabolic encephalopathy Code(s): G93.41 - METABOLIC ENCEPHALOPATHY Status: Resolved (2) Physical deconditioning Code(s): R53.81 - OTHER MALAISE Status: Acute (3) UTI (urinary tract infection) due to urinary indwelling catheter Code(s): T83.511A - I/I REACT D/T INDWELLING URETHRAL CATHETER, INIT; N39.0 - URINARY TRACT INFECTION, SITE NOT SPECIFIED Status: Acute Qualifiers: Indwelling urinary catheter type: indwelling urethral catheter Encounter ty pe: subsequent encounter Qualified Code(s): T83.511D - Infection and inflammatory reaction due to indwelling urethral catheter, subsequent encounter; N39.0 - Urinary tract infection, site not specified (4) Urine retention Code(s): R33.9 - RETENTION OF URINE, UNSPECIFIED Status: Acute (5) CAD (coronary artery disease) Code(s): I25.10 - ATHSCL HEART DISEASE OF [place] CORONARY ARTERY W/O ANG PCTRS Status: Chronic Qualifiers: Coronary Disease-Associated Artery/Lesion type: [place] artery [place] vs. transplanted heart: [place] heart (6) Generalized weakness Code(s): R53.1 - WEAKNESS Status: Chronic (7) Dehydration Code(s): E86.0 - DEHYDRATION Status: Resolved (8) Seizure Code(s): R56.9 - UNSPECIFIED CONVULSIONS Status: Resolved (9) Acute metabolic encephalopathy due to hypoglycemia Code(s): G93.41 - METABOLIC ENCEPHALOPATHY; E16.2 - HYPOGLYCEMIA, UNSPECIFIED Status: Acute (10) HTN (hypertension) Code(s): I10 - ESSENTIAL (PRIMARY) HYPERTENSION Status: Chronic Qualifiers: Hypertension type: essential hypertension Qualified Code(s): I10 - Essential (primary) hypertension (11) Hypothyroid Code(s): E03.9 - HYPOTHYROIDISM, UNSPECIFIED Status: Chronic Qualifiers: Hypothyroidism type: unspecified Qualified Code(s): E03.9 - Hypothyroidism, unspecified (12) Hypoglycemia Code(s): E16.2 - HYPOGLYCEMIA, UNSPECIFIED Status: Resolved (13) Type 2 myocardial infarction Code(s): I21.A1 - MYOCARDIAL INFARCTION TYPE 2 Status: Acute (14) Diabetes mellitus, type II, insulin dependent Code(s): E11.9 - TYPE 2 DIABETES MELLITUS WITHOUT COMPLICATIONS; Z79.4 - RESIDENTIAL (CURRENT) USE OF INSULIN Status: Chronic - Plan Acute metabolic encephalopathy: Likely due to underlying dementia, UTI. Generally better. Still has some episodes of delerium. On Risperdal chronically. Has a little "sundowning". May need to change the risperdal to hs. Cleared for regular texture foods, thin liquids. Looks like she did not have a true seizure. Negative EEG and MRI. Anorexia: Adding some Remeron q hs. Urinary retention: Was previously on myrbetriq. That was discontinued. Now on flomax. Eitology is unclear. Will attempt again to remove the catheter with constipation addressed, flomax initiated. Will do "bladder training" with I and O cath q 6h as needed. Severe Deconditioning: Will likely benefit from going back to the swingbed. This will allow therapy, but also have the medical follow up she needs for the bladder and medication adjustments for the anorexia. May need to consider holding the high potency statin for a period of time to see if she has an associated myopathy. UTI: On po Cipro. Dehydration: Improved. Decrease IVF to 50 cc/hr. DM: Well controlled. No change.
[2020-05-28] MEDS: Mirtazapine 15 MG TAB PO SCH (22:25)
[2020-05-28] MEDS: Gabapentin 300 MG CAP PO SCH (22:25)
[2020-05-28] MEDS: Famotidine 20 MG TAB PO SCH (22:27)
[2020-05-29] MEDS: Levothyroxine Sodium 88 MCG TAB PO SCH (05:33)
[2020-05-29] MEDS: Ciprofloxacin 500 MG TAB PO SCH ×2 (05:34→22:38)
[2020-05-29] MEDS: Sodium Chloride 0.9% 1,000 ML IV SCH ×2 (05:34→09:09)
[2020-05-29] MEDS ORDERED: Metoprolol Tartrate 50 MG TAB PO SCH (07:45)
[2020-05-29] MEDS: Docusate 100 MG CAP PO SCH (08:31)
[2020-05-29] MEDS: Polyethylene Glycol 3350 17 GM Packet PO SCH (08:31)
[2020-05-29] MEDS: Proctozone-HC 30 GM TUBE TOP SCH ×2 (09:10→22:08)
[2020-05-29] MEDS: Tamsulosin HCl 0.4 MG CAP PO SCH (09:11)
[2020-05-29] MEDS: Metoprolol Tartrate 25 MG TAB PO SCH (09:11)
[2020-05-29] MEDS: Losartan 25 MG TAB PO SCH (09:11)
[2020-05-29] MEDS: Rosuvastatin 10 MG TAB PO SCH (09:11)
[2020-05-29] MEDS: risperiDONE 1 MG TAB PO SCH (09:12)
[2020-05-29] MEDS: Enoxaparin Sodium 40 MG/0.4 ML SYRINGE SC SCH (09:13)
[2020-05-29] MEDS: Insulin Regular 300 UNITS/3 ML VIAL SC PRN (10:53)
--- NOTE | 2020-05-29 13:11 | MRI ---
Exam: MRI cervical spine without contrast HISTORY: Cervical stenosis. Left upper extremity weakness.. COMPARISON: None FINDINGS: Appropriate T1 marrow signal intensity of the cervical vertebra. Cervical spine vertebral body heigh t is maintained. No fracture. No significant STIR hyperintensity to suggest vertebral body edema or ligamentous injury. Mild mucosal thickening of the visualized paranasal sinuses. Visualized brain parenchyma, cervicomedullary junction, cervical cord and the upper thoracic cord hav e a normal size and signal intensity. Spondylolisthesis: 1.5 mm of anterolisthesis of C7 upon T1. C2-C3: Disc desiccation without significant loss of disc space height. No significant central canal s tenosis or significant neural foraminal narrowing. C3-C4: Disc desiccation with mild loss of disc space height. Broad-based disc osteophyte complex with a left paracentral component. There is mass effect upon the midline and left paracentral cord. Mild to moderate central canal stenosis. No cord signal abnormality. Mild bilateral neural foraminal narrowing due to uncovertebral hypertrophy. Stable central canal stenosis and stable neural foraminal narrowing. C4-C5: Disc desiccation without significant loss of disc space height. Broad-based disc osteophyte co mplex abuts the thecal sac. Ventral subarachnoid space is effaced. There is mass effect and deformity of the cervical cord. Moderate central canal stenosis. Moderate right and [id number] left neural foraminal narrowing. No cord signal abnormality. C5-C6: Disc desiccation with mild loss of disc space height. Broad-based disc osteophyte complex. Mo derate to severe central canal stenosis. There is mass effect and deformity of the cervical cord, without cord signal abnormality. The degree of central canal stenosis has progressed. Moderate to sev ere bilateral neural foraminal narrowing. C6-C7: Disc desiccation without significant loss of disc space height. Broad-based disc osteophyte co mplex effaces the subarachnoid space. Mass effect upon the central and right paracentral cord. Moderate central canal stenosis. Moderate to severe right and moderate left neural foraminal narrowin g. Degree of central canal stenosis and foraminal narrowing is similar to the previous exam. C7-T1: No significant central canal stenosis or significant neural foraminal foraminal narrowing. IMPRESSION: Redemonstration of multilevel degenerative changes of the cervical spine. Transcribed Date/Time: 05/29/2020 1:18 PM
--- NOTE | 2020-05-29 18:15 | PDOC.HOSPP ---
- Subjective Encounter Date: 05/29/20 Subjective: Patient is doing okay today. She apparently ate a good dinner last evening. She had several bowel movements overnight that has her a bit sore on the backside. Otherwise no complaints. - Objective Vital Signs & Weight: Vital Signs (12 hours) Temp Pulse Resp BP Pulse Ox 05/29/20 15:44 97.8 F 50 L 16 127/54 L 95 05/29/20 14:00 97.4 F L 54 L 20 127/54 L 98 05/29/20 07:46 97.3 F L 63 16 154/64 H 94 L Weight Admit Weight 155 lb 12.8 oz Weight 155 lb 12.8 oz I&O: 05/28/20 05/29/20 05/30/20 06:59 06:59 06:59 Intake Total 1240 1050 975 Output Total 400 300 525 Balance 840 750 450 Result Diagrams: 05/28/20 04:22 05/28/20 04:22 Additional Labs: Accuchecks 05/29/20 05/29/20 05/29/20 16:42 10:24 05:32 POC Glucose 149 H 187 H 156 H 05/28/20 21:56 POC Glucose 201 H Hospitalist ROS - Medication Medications: Active Medications Generic Name Dose Route Start Last Admin Trade Name Valeriano PRN Reason Stop Dose Admin Ciprofloxacin 500 mg 05/26/20 20:00 05/29/20 05:34 Ciprofloxacin 500 Mg Tab PO 500 mg 0600,2000 [facility] Administration Enoxaparin Sodium 40 mg 05/24/20 09:00 05/29/20 09:13 Enoxaparin Sodium 40 Mg/0.4 Ml Syringe SC Not Given 0900 [facility] Famotidine 20 mg 05/22/20 21:00 05/28/20 22:27 Famotidine 20 Mg Tab PO Not Given 2100 [facility] Gabapentin 300 mg 05/23/20 21:00 05/28/20 22:25 Gabapentin 300 Mg Cap PO 300 mg HS [facility] Administration Hydrocortisone 1 gm 05/24/20 21:00 05/29/20 09:10 Proctozone-Hc 30 Gm Tube TOP 1 applic BID [facility] Administration Sodium Chloride 1,000 mls @ 50 mls/hr 05/28/20 10:09 05/29/20 09:09 Normal Saline 0.9% IV 1,000 mls .Q20H [facility] Administration Insulin Human Lispro 0 units 05/24/20 21:14 05/25/20 21:48 Humalog 300 Units/3 Ml Vial SC 3 unit .BEDTIME SLIDING SC PRN Administration Bedtime Correctional Scale Insulin Human Regular 0 units 05/23/20 13:15 05/29/20 10:53 Insulin Regular 300 Units/3 Ml Vial SC 2 unit .MODERATE SLIDING SC PRN Administration MODERATE SLIDING SCALE Protocol Isosorbide Mononitrate 30 mg 05/23/20 09:00 05/29/20 09:12 Isosorbide Mononitrate Er 30 Mg Tab PO 30 mg DAILY [facility] Administration Levothyroxine Sodium 88 mcg 05/25/20 06:00 05/29/20 05:33 Levothyroxine Sodium 88 Mcg Tab PO 88 mcg 0600 [facility] Administration Loperamide HCl 2 mg 05/23/20 08:23 05/28/20 22:25 Loperamide Hcl 2 Mg Cap PO 2 mg PRN PRN Administration Diarrhea/Loose Stools Losartan Potassium 100 mg 05/29/20 09:00 05/29/20 09:11 Losartan 25 Mg Tab PO 100 mg DAILY [facility] Administration Metoprolol Tartrate 25 mg 05/29/20 09:00 05/29/20 09:11 Metoprolol Tartrate 25 Mg Tab PO 25 mg DAILY [facility] Administration Mirtazapine 15 mg 05/28/20 21:00 05/28/20 22:25 Mirtazapine 15 Mg Tab PO 15 mg HS [facility] Administration Ondansetron HCl 4 mg 05/23/20 08:23 05/26/20 11:52 Ondansetron Pf 4 Mg/2 Ml Vial IVP 4 mg Q6H PRN Administration Nausea/Vomiting Ranolazine 1,000 mg 05/23/20 09:00 05/29/20 09:10 Ranolazine 500 Mg Tab PO 1,000 mg BID [facility] Administration Risperidone 1 mg 05/23/20 09:00 05/29/20 09:12 Risperidone 1 Mg Tab PO 1 mg DAILY [facility] Administration Sodium Chloride 10 ml 05/22/20 20:42 05/26/20 08:40 Flush - Normal Saline 10 Ml Syringe IVF 10 ml Q12HR PRN Administration Saline Flush Tamsulosin HCl 0.4 mg 05/26/20 09:00 05/29/20 09:11 Tamsulosin Hcl 0.4 Mg Cap PO 0.4 mg DAILY [facility] Administration - Exam General Appearance: NAD, awake alert Heart: RRR, no murmur, no gallops, no rubs, normal peripheral pulses Respiratory: CTAB, no wheezes, no rales, no ronchi, normal chest expansion, no tachypnea, normal percussion Gastrointestinal: soft, non-tender, non-distended, normal bowel sounds, no palpable masses, no hepatomegaly, no splenomegaly, no bruit Extremities: no cyanosis, no clubbing, no edema Skin: normal turgor Neurological: no new deficit Musculoskeletal: generalized weakness (Fairly profound) Psychiatric: normal affect, normal behavior Hosp A/P (1) Acute metabolic encephalopathy Code(s): G93.41 - METABOLIC ENCEPHALOPATHY Status: Resolved (2) Physical deconditioning Code(s): R53.81 - OTHER MALAISE Status: Acute (3) UTI (urinary tract infection) due to urinary indwelling catheter Code(s): T83.511A - I/I REACT D/T INDWELLING URETHRAL CATHETER, INIT; N39.0 - URINARY TRACT INFECTION, SITE NOT SPECIFIED Status: Acute Qualifiers: Indwelling urinary catheter type: indwelling urethral catheter Encounter type: subsequent encounter Qualified Code(s): T83.511D - Infection and infl ammatory reaction due to indwelling urethral catheter, subsequent encounter; N39.0 - Urinary tract infection, site not specified (4) Urine retention Code(s): R33.9 - RETENTION OF URINE, UNSPECIFIED Status: Acute (5) CAD (coronary artery disease) Code(s): I25.10 - ATHSCL HEART DISEASE OF [place] CORONARY ARTERY W/O ANG PCTRS Status: Chronic Qualifiers: Coronary Disease-Associated Artery/Lesion type: [place] artery [place] vs. transplanted heart: [place] heart (6) Generalized weakness Code(s): R53.1 - WEAKNESS Status: Chronic (7) Dehydration Code(s): E86.0 - DEHYDRATION Status: Resolved (8) Seizure Code(s): R56.9 - UNSPECIFIED CONVULSIONS Status: Resolved (9) Acute metabolic encephalopathy due to hypoglycemia Code(s): G93.41 - METABOLIC ENCEPHALOPATHY; E16.2 - HYPOGLYCEMIA, UNSPECIFIED Status: Acute (10) HTN (hypertension) Code(s): I10 - ESSENTIAL (PRIMARY) HYPERTENSION Status: Chronic Qualifiers: Hypertension type: essential hypertension Qualified Code(s): I10 - Essential (primary) hypertension (11) Hypothyroid Code(s): E03.9 - HYPOTHYROIDISM, UNSPECIFIED Status: Chronic Qualifiers: Hypothyroidism type: unspecified Qualified Code(s): E03.9 - Hypothyroidism, unspecified (12) Hypoglycemia Code(s): E16.2 - HYPOGLYCEMIA, UNSPECIFIED Status: Resolved (13) Type 2 myocardial infarction Code(s): I21.A1 - MYOCARDIAL INFARCTION TYPE 2 Status: Acute (14) Diabetes mellitus, type II, insulin dependent Code(s): E11.9 - TYPE 2 DIABETES MELLITUS WITHOUT COMPLICATIONS; Z79.4 - DEAN OF WOMEN (CURRENT) USE OF INSULIN Status: Chronic (15) Cervical spinal stenosis Code(s): M48.02 - SPINAL STENOSIS, CERVICAL REGION Status: Acute - Plan Acute metabolic encephalopathy: Likely due to underlying dementia, UTI, hypoglycemia possibly postictal. Patient's dementia appears to be very mild. Capable of having a fairly good conversation. Generally better. She did have a little bit of delirium but seems to be largely improved. On Risperdal chronically. Has a little "sundowning". Cleared for regular texture foods, thin liquids. Seizure: Patient had no evidence of true seizure with elevated prolactin levels. She was evaluated by neurology. There was no indication for ongoing antiepileptics. EEG was negative, MRI was negative. Anorexia: Added some Remeron q hs. We will need to monitor over time to determine affect. Urinary retention: Was previously on myrbetriq. That was discontinued. Now on flomax. Eitology is unclear. Concerned that it may be related to the cervical spinal stenosis. Attempted to remove the catheter but she was continuing to retain urine. Attempted some bladder training. At this point we will leave the Seth catheter in place until we can determine the source of her weakness. Severe Deconditioning/generalized weakness: Patient has progressive generalized weakness that seems to be affecting the lower extremities more. Etiology of this remains unclear. Reviewing her records revealed that she did have a history of some spinal stenosis in the C-spine. Repeat MRI today shows persistent moderate to severe cervical spinal stenosis. It has progressed some since her previous scan 2 years ago. She has a negative sed rate and a negative CPK so it is not likely polymyalgia, vasculitis, polymyositis. She likely needs outpatient nerve conduction studies and EMG. Will likely benefit from going back to the swingbed. I am holding her high-dose rosuvastatin for the possibility of some related myopathy. UTI: Enterobacter. On po Cipro day 7. Can likely discontinue antibiotics tomorrow. Dehydration: Improved. Decrease IVF to 50 cc/hr. DM: Well controlled. No change. Diarrhea: Likely related to the medications that she has previously received for constipation. Those are now discontinued. If it persists she may need to be evaluated for C. difficile. Hypoglycemia: Resolved. Disposition: Discussed the situation with his daughter at [phone]. I believe the patient would most likely benefit from outpatient nerve conduction studies. At this time she most likely needs to go to a swing bed. I do not think she can do 3 hours of rehab to qualify for inpatient rehab.
[2020-05-29] MEDS: Ondansetron PF 4 MG/2 ML Vial IVP PRN (21:10)
[2020-05-29] MEDS: HumaLOG 300 UNITS/3 ML VIAL SC PRN (21:15)
[2020-05-29] MEDS: Mirtazapine 15 MG TAB PO SCH (22:39)
[2020-05-29] MEDS: Gabapentin 300 MG CAP PO SCH (22:39)
[2020-05-29] MEDS: Famotidine 20 MG TAB PO SCH (22:39)
[2020-05-30] MEDS: Sodium Chloride 0.9% 1,000 ML IV SCH (04:46)
[2020-05-30] MEDS: Levothyroxine Sodium 88 MCG TAB PO SCH (06:15)
[2020-05-30] MEDS: Ciprofloxacin 500 MG TAB PO SCH (06:15)
[2020-05-30] MEDS: Proctozone-HC 30 GM TUBE TOP SCH (09:41)
[2020-05-30] MEDS: Losartan 25 MG TAB PO SCH (09:42)
[2020-05-30] MEDS: Tamsulosin HCl 0.4 MG CAP PO SCH (09:42)
[2020-05-30] MEDS: risperiDONE 1 MG TAB PO SCH (09:43)
[2020-05-30] MEDS: Metoprolol Tartrate 25 MG TAB PO SCH (09:43)
[2020-05-30] MEDS: Enoxaparin Sodium 40 MG/0.4 ML SYRINGE SC SCH (09:43)
--- NOTE | 2020-05-30 14:33 | PDOC.DS.DS ---
Provider - Provider Date of Admission: 05/24/20 11:21 Date of Discharge: 05/30/20 Admitting Provider: Vazquez Burch MD Consultations: None Primary Care Physician: Jay Jay Schmid Course - Hospital Course Hospital Course: Discharge diagnosis: 1. Acute metabolic encephalopathy 2. Urinary tract infection 3. Urinary retention 4. Physical deconditioning 5. Dehydration 6. Seizure 7. Cervical spinal stenosis Condition of patient on the day of discharge: Stable. I assessed the patient on the day of discharge. She denies any chest pain or shortness of breath. Vital signs are stable. S1 and S2 are heard, regular. Lungs are clear to a uscultation bilaterally. Hospital course: Patient is a pleasant 79-year-old lady who was admitted to the hospital on May 23, 2020 for acute metabolic encephalopathy. She was seen by neurology service. MRI of the brain did not show any acute lesion. EEG was consistent with mild generalized nonspecific cerebral dysfunction. Urine culture grew Enterobacter that was resistant to cefoxitin and intermediate resistance to nitrofurantoin but was otherwise pansensitive. Patient developed urinary retention during this hospitalization and was started on Flomax. She was also physically deconditioned. MRI of the cervical spine on May 29 showed multilevel degenerative changes of the cervical spine. His case was discussed with neurosurgery service, they will follow-up as outpatient. Metoprolol dose was decreased during this hospitalization. Statin was discontinued because of suspected myopathy. Patient is being discharged to swing bed for further management. Many thanks for allowing me to participate in your patient's care. Please feel free to contact me with any questions or concerns. Discharge destination: Swing bed Total amount of time spent coordinating this discharge: 32 minutes - Labs Lab Results: 05/28/20 04:22 05/28/20 04:22 Microbiology - Entire Visit 05/22/20 08:25 Urine clean catch Urine Culture - Final Enterobacter aerogenes - Physical Exam Vitals: Vital Signs (12 hours) Temp Pulse Resp BP Pulse Ox 05/30/20 11:25 97.5 F L 62 20 144/62 H 98 05/30/20 07:33 97.8 F 68 16 178/72 H 93 L 05/30/20 04:00 97.6 F 65 16 161/64 H 92 L Weight Admit Weight 155 lb 12.8 oz Weight 155 lb 12.8 oz Physical Exam: The patient was seen and examined on the day of discharge. Plan - Discharge Medications Home Medications: Medication Instructions Recorded Confirmed Type Isosorbide Mononitrate [Isosorbide 30 mg PO DAILY 04/21/20 05/30/20 History Mononitrate ER] Losartan [Cozaar] 50 mg PO DAILY 04/21/20 05/30/20 History Ranolazine [Ranolazine ER] 1,000 mg PO BID 04/21/20 05/30/20 History Gabapentin [Neurontin] 300 mg PO HS cap 05/22/20 05/30/20 Rx Magnesium Oxide 400 mg PO DAILY tab 05/22/20 05/30/20 Rx risperiDONE [RisperDAL] 1 mg PO DAILY 05/22/20 05/30/20 History Ciprofloxacin [Cipro] 500 mg PO 0600,1999 tab 05/30/20 05/30/20 Rx Hydrocortisone [Proctozone-HC 2.5% 1 gm TOP BID tube 05/30/20 05/30/20 Rx Cream] Metoprolol Succinate [Toprol XL] 25 mg PO DAILY tab 05/30/20 05/30/20 Rx Tamsulosin HCl [Flomax] 0.4 mg PO DAILY cap 05/30/20 05/30/20 Rx Allergies: promethazine [From Phenergan] Allergy (Unknown, Verified 05/23/20 08:53) codeine Allergy (Verified 04/30/20 16:18) morphine Allergy (Verified 04/30/20 16:18) Penicillins Allergy (Verified 04/30/20 16:18) - Discharge Instructions Activity:: Activity as Tolerated Nourishment:: Heart Healthy Diet Therapies:: Occupational Therapy, Physical Therapy, Speech Therapy - Follow up Plan Referrals: [facility]* [Outside] Dolores Duarte MD [Primary Care Provider] - 3 Days Kush Hunter MD [Active] - 10 Days Disposition: SWINGBED FACILITY Quality - Care Measures CORE MEASURES:: N/A
--- NOTE | 2020-05-30 15:00 | PDOC.HOSPP ---
- Subjective Encounter Date: 05/30/20 Encounter Time: 07:50 Subjective: Patient seen for follow-up regarding physical deconditioning. Daughter by bedside. Patient reports feeling better. - Objective Vital Signs & Weight: Vital Signs (12 hours) Temp Pulse Resp BP Pulse Ox 05/30/20 11:25 97.5 F L 62 20 144/62 H 98 05/30/20 07:33 97.8 F 68 16 178/72 H 93 L 05/30/20 04:00 97.6 F 65 16 161/64 H 92 L Weight Admit Weight 155 lb 12.8 oz Weight 155 lb 12.8 oz I&O: 05/29/20 05/30/20 05/31/20 06:59 06:59 06:59 Intake Total 1050 1940 Output Total 300 875 Balance 750 1065 Result Diagrams: 05/28/20 04:22 05/28/20 04:22 Additional Labs: Accuchecks 05/30/20 05/30/20 05/29/20 10:27 05:29 20:55 POC Glucose 126 H 121 H 231 H 05/29/20 16:42 POC Glucose 149 H Labs and MAR reviewed by me EKG Reviewed by me: Yes (Telemetry: NSR) Hospitalist ROS - Review of Systems Cardiovascular: denies: chest pain, palpitations, orthopnea, paroxysmal noc. dyspnea, edema, light headedness Gastrointestinal: denies: nausea, vomiting, abdominal pain, diarrhea, constipation, melena, hematochezia Genitourinary: reports: retention - Medication Medications: Active Medications Generic Name Dose Route Start Last Admin Trade Name Valeriano PRN Reason Stop Dose Admin Ciprofloxacin 500 mg 05/26/20 20:00 05/30/20 06:15 Ciprofloxacin 500 Mg Tab PO 500 mg 06,1999 [facility] Administration Enoxaparin Sodium 40 mg 05/24/20 09:00 05/30/20 09:43 Enoxaparin Sodium 40 Mg/0.4 Ml Syringe SC Not Given 0900 NICHOLE Famotidine 20 mg 05/22/20 21:00 05/29/20 22:39 Famotidine 20 Mg Tab PO Not Given 2100 NICHOLE Gabapentin 300 mg 05/23/20 21:00 05/29/20 22:39 Gabapentin 300 Mg Cap PO Not Given HS NICHOLE Hydrocortisone 1 gm 05/24/20 21:00 05/30/20 09:41 Proctozone-Hc 30 Gm Tube TOP 1 applic BID NICHOLE Administration Sodium Chloride 1,000 mls @ 50 mls/hr 05/28/20 10:09 05/30/20 04:46 Normal Saline 0.9% IV 1,000 mls .Q20H NICHOLE Administration Insulin Human Lispro 0 units 05/24/20 21:14 05/29/20 21:15 Humalog 300 Units/3 Ml Vial SC 2 unit .BEDTIME SLIDING SC PRN Administration Bedtime Correctional Scale Insulin Human Regular 0 units 05/23/20 13:15 05/29/20 10:53 Insulin Regular 300 Units/3 Ml Vial SC 2 unit .MODERATE SLIDING SC PRN Administration MODERATE SLIDING SCALE Protocol Isosorbide Mononitrate 30 mg 05/23/20 09:00 05/30/20 09:43 Isosorbide Mononitrate Er 30 Mg Tab PO 30 mg DAILY NICHOLE Administration Levothyroxine Sodium 88 mcg 05/25/20 06:00 05/30/20 06:15 Levothyroxine Sodium 88 Mcg Tab PO 88 mcg 0600 NICHOLE Administration Loperamide HCl 2 mg 05/23/20 08:23 05/28/20 22:25 Loperamide Hcl 2 Mg Cap PO 2 mg PRN PRN Administration Diarrhea/Loose Stools Losartan Potassium 100 mg 05/29/20 09:00 05/30/20 09:42 Losartan 25 Mg Tab PO 100 mg DAILY NICHOLE Administration Mirtazapine 15 mg 05/28/20 21:00 05/29/20 22:39 Mirtazapine 15 Mg Tab PO Not Given HS NICHOLE Ondansetron HCl 4 mg 05/23/20 08:23 05/29/20 21:10 Ondansetron Pf 4 Mg/2 Ml Vial IVP 4 mg Q6H PRN Administration Nausea/Vomiting Ranolazine 1,000 mg 05/23/20 09:00 05/30/20 09:57 Ranolazine 500 Mg Tab PO 1,000 mg BID NICHOLE Administration Risperidone 1 mg 05/23/20 09:00 05/30/20 09:43 Risperidone 1 Mg Tab PO 1 mg DAILY NICHOLE Administration Sodium Chloride 10 ml 05/22/20 20:42 05/26/20 08:40 Flush - Normal Saline 10 Ml Syringe IVF 10 ml Q12HR PRN Administration Saline Flush Tamsulosin HCl 0.4 mg 05/26/20 09:00 05/30/20 09:42 Tamsulosin Hcl 0.4 Mg Cap PO 0.4 mg DAILY NICHOLE Administration - Exam General Appearance: awake alert Eye: anicteric sclera ENT: moist mucosa Neck: supple Heart: RRR Respiratory: CTAB Gastrointestinal: soft, non-tender Skin: no rashes Psychiatric: normal affect Hosp A/P (1) Physical deconditioning Code(s): R53.81 - OTHER MALAISE Status: Acute (2) UTI (urinary tract infection) due to urinary indwelling catheter Code(s): T83.511A - I/I REACT D/T INDWELLING URETHRAL CATHETER, INIT; N39.0 - URINARY TRACT INFECTION, SITE NOT SPECIFIED Status: Acute Qualifiers: Indwelling urinary catheter type: indwelling urethral catheter Encounter type: subsequent encounter Qualified Code(s): T83.511D - Infection and inflammatory reaction due to indwelling urethral catheter, subsequent encounter; N39.0 - Urinary tract infection, site not specified (3) Urine retention Code(s): R33.9 - RETENTION OF URINE, UNSPECIFIED Status: Acute (4) Acute metabolic encephalopathy Code(s): G93.41 - METABOLIC ENCEPHALOPATHY Status: Resolved - Plan PT/OT eval/treatment, patient is awaiting swing bed. Continue oral ciprofloxacin. Continue Seth catheter. According to patient's daughter, patient is improving clinically. Transfer to swing bed when bed is available. Change metoprolol to Toprol-XL 25 mg daily. Crestor has been discontinued.
[2020-05-30 15:38] VITALS: BP 170/69; TEMP 98.6
[2020-05-31 12:56] LABS: SARS-CoV-2 MS2 Positive; SARS-CoV-2 N Gene Negative; SARS-CoV-2 S Gene Negative; SARS-CoV-2 by NAA Not Detected (NotDetected); SARS-CoV-2 orf1ab Negative
== END 2020-05-30 20:03 | disposition swing bed (61) | DRG 698 ==
LOC: 2SE 17:08 → OBSVTOIN 05-24 11:21
PROVIDERS: ADMIT Internal Medicine; ATTEND Internal Medicine
PROC: 0T9B70Z Drainage of Bladder with Drainage Device, Via Natural or Artificial Opening (ICD-10-PCS; principal; 2020-05-25)
DX: T83.511A Infection and inflammatory reaction due to indwelling urethral catheter, initial encounter (principal); G93.41 Metabolic encephalopathy; I21.A1 Myocardial infarction type 2; Z16.29 Resistance to other single specified antibiotic; F05 Delirium due to known physiological condition; Z66 Do not resuscitate; N39.0 Urinary tract infection, site not specified; B96.89 Other specified bacterial agents as the cause of diseases classified elsewhere; R33.9 Retention of urine, unspecified; E86.0 Dehydration; M48.02 Spinal stenosis, cervical region; I25.10 Atherosclerotic heart disease of native coronary artery without angina pectoris; E03.9 Hypothyroidism, unspecified; E78.5 Hyperlipidemia, unspecified; Y84.6 Urinary catheterization as the cause of abnormal reaction of the patient, or of later complication, without mention of misadventure at the time of the procedure; R56.9 Unspecified convulsions; R68.0 Hypothermia, not associated with low environmental temperature; F03.90 Unspecified dementia, unspecified severity, without behavioral disturbance, psychotic disturbance, mood disturbance, and anxiety; Z20.828 Contact with and (suspected) exposure to other viral communicable diseases; E11.42 Type 2 diabetes mellitus with diabetic polyneuropathy; I10 Essential (primary) hypertension; R63.0 Anorexia; E11.649 Type 2 diabetes mellitus with hypoglycemia without coma; R19.7 Diarrhea, unspecified; Z68.28 Body mass index [BMI] 28.0-28.9, adult; Z95.5 Presence of coronary angioplasty implant and graft; Z90.49 Acquired absence of other specified parts of digestive tract; Z90.710 Acquired absence of both cervix and uterus; Z74.01 Bed confinement status; Z88.5 Allergy status to narcotic agent; Z88.0 Allergy status to penicillin; Z88.8 Allergy status to other drugs, medicaments and biological substances; Z79.899 Other long term (current) drug therapy
CPT/HCPCS: 36415; 36416; 70553; 71045; 72141; 80048; 80053; 82550; 82553; 83605; 83735; 84146; 84443; 84484; 85025; 85652; 87077; 87086; 87186; 87635; 95712; 95819; 95957; 96365; 96372; 96375; A9579; G0378; J0696; J1630; J1650; J1815; J2405; J3475; J3490; U0003

== ENCOUNTER 2020-10-19 04:43 | Inpatient (IN) | payer MEDICARE ==
[2020-10-19] MEDS ORDERED: Fentanyl 100 MCG/2 ML VIAL ONE (04:56)
[2020-10-19] MEDS ORDERED: hydrALAZINE 20 MG/ML VIAL SLOW IVP PRN (05:41)
[2020-10-19] MEDS ORDERED: Dextrose 5% in Water 1,000 ML IV PRN ×2 (05:41→06:35)
[2020-10-19] MEDS ORDERED: Dextrose 50% Abboject 50 ML SYRINGE SLOW IVP PRN ×2 (05:41→06:35)
[2020-10-19 05:42] LABS: #Basophils 0.1 thou/uL (0.0-0.2); #Eosinphils 0.2 thou/uL (0.0-0.7); #Lymphocytes 2.7 thou/uL (1.20-3.40); #Monocytes 0.5 thou/uL (0.11-0.59); #Neutrophils 6.3 thou/uL (1.40-6.50); %Basophils 0.7 % (0.0-1.0); %Eosinophils 1.9 % (0.0-10.0); %Lymphocytes 27.8 % (21.0-51.0); %Monocytes 4.7 % (0.0-10.0); %Neutrophils 64.9 % (42.0-75.0); Hemoglobin 12.6 g/dL (12.0-16.0); Mean Corpuscular HGB CONC 32.3 g/dL (32.0-36.0); Mean Corpuscular Hemoglobin 31.2 pg (27.0-31.0); Mean Corpuscular Volume 96.7 fL (78.0-98.0); Mean Platelet Volume 7.8 fL (7.4-10.4); Platelet Count 175 thou/uL (130-400); Red Blood Cell (RBC) Count 4.05 mill/uL (4.20-5.40); White Blood Cell (WBC) Count 9.7 thou/uL (4.8-10.8)
[2020-10-19] MEDS ORDERED: Cyclobenzaprine 10 MG TAB PO PRN (05:45)
[2020-10-19] MEDS ORDERED: Senokot 8.6 MG TAB PO PRN (05:47)
[2020-10-19] MEDS ORDERED: Labetalol HCl 100 MG/20 ML VIAL ONE (05:52)
[2020-10-19 06:05] LABS: ALT (SGPT) 7 U/L (8-55); AST (SGOT) 18 U/L (5-34); Albumin 3.6 g/dL (3.4-4.8); Alkaline Phosphatase 74 U/L (40-110); Anion Gap 16 mmol/L (10-20); BUN (Urea Nitrogen) 25 mg/dL (9.8-20.1); Bilirubin, Total 0.4 mg/dL (0.2-1.2); Calc. Creatinine Clearance 0 mL/min (70-130); Carbon Dioxide 26 mmol/L (23-31); Chloride 100 mmol/L (98-107); Globulin 3.3 g/dL (2.4-3.5); Glucose 278 mg/dL (83-110); Potassium 4.9 mmol/L (3.5-5.1); Protein, Total 6.9 g/dL (5.8-8.1); Sodium 137 mmol/L (136-145)
[2020-10-19] MEDS ORDERED: Insulin Regular 300 UNITS/3 ML VIAL SC PRN ×2 (06:35)
[2020-10-19 07:33] VITALS: BMI 29.6
[2020-10-19] MEDS: traMADol HCl 50 MG TAB PO PRN (08:24)
[2020-10-19 08:34] LABS: Troponin I 0.011 ng/mL (< 0.028)
[2020-10-19] MEDS: Acetaminophen 325 MG TAB PO SCH ×4 (08:44→23:35)
[2020-10-19] MEDS: Magnesium Oxide 400 MG TAB PO SCH ×2 (08:44→11:12)
[2020-10-19] MEDS: traMADol HCl 50 MG TAB PO SCH ×4 (08:44→23:35)
[2020-10-19] MEDS: Docusate 100 MG CAP PO SCH ×2 (08:44→11:13)
[2020-10-19] MEDS: Polyethylene Glycol 3350 17 GM Packet PO SCH ×2 (08:45→11:15)
[2020-10-19] MEDS: Gabapentin 300 MG CAP PO SCH ×4 (08:45→21:01)
[2020-10-19] MEDS ORDERED: Polyethylene Glycol 3350 17 GM Packet PO SCH (09:00)
[2020-10-19] MEDS ORDERED: Levothyroxine Sodium 88 MCG TAB PO SCH (09:00)
[2020-10-19] MEDS ORDERED: Tamsulosin HCl 0.4 MG CAP PO SCH (09:00)
[2020-10-19] MEDS ORDERED: Clindamycin/D5W 900 MG in Premix Bag 1 BAG IVPB SCH (09:00)
[2020-10-19] MEDS ORDERED: Famotidine 20 MG TAB PO SCH (09:00)
[2020-10-19 09:55] LABS: SARS-CoV-2 NAA Rapid Test Not Detected (NotDetected)
[2020-10-19 09:57] LABS: CKMB 1.2 ng/mL (0-6.6)
[2020-10-19] MEDS: HumaLOG 300 UNITS/3 ML VIAL SC PRN ×2 (17:28→23:34)
[2020-10-19] MEDS: Ondansetron PF 4 MG/2 ML Vial IVP PRN (17:57)
[2020-10-19] MEDS ORDERED: Metoclopramide HCl 10 MG/2 ML VIAL IVP PRN (18:23)
[2020-10-19] MEDS: Mirtazapine 15 MG TAB PO SCH (21:01)
[2020-10-19] MEDS: Lantus 1000 UNITS/10 ML VIAL SC SCH (22:25)
[2020-10-20] MEDS: traMADol HCl 50 MG TAB PO PRN ×2 (01:29→20:42)
[2020-10-20] MEDS: Levothyroxine Sodium 88 MCG TAB PO SCH ×2 (06:02→06:27)
[2020-10-20] MEDS: Acetaminophen 325 MG TAB PO SCH ×4 (06:02→17:11)
[2020-10-20] MEDS: traMADol HCl 50 MG TAB PO SCH ×4 (06:03→17:11)
[2020-10-20 06:04] LABS: #Eosinphils 0.1 thou/uL (0.0-0.7); #Lymphocytes 2.4 thou/uL (1.20-3.40); #Monocytes 0.6 thou/uL (0.11-0.59); #Neutrophils 7.3 thou/uL (1.40-6.50); %Basophils 0.1 % (0.0-1.0); %Monocytes 5.6 % (0.0-10.0); %Neutrophils 70.3 % (42.0-75.0); Hemoglobin 12.4 g/dL (12.0-16.0); Mean Corpuscular HGB CONC 32.9 g/dL (32.0-36.0); Mean Corpuscular Hemoglobin 32.8 pg (27.0-31.0); Mean Corpuscular Volume 99.6 fL (78.0-98.0); Mean Platelet Volume 8.2 fL (7.4-10.4); Platelet Count 173 thou/uL (130-400); RBC Distribution Width 12.2 % (11.5-14.5); Red Blood Cell (RBC) Count 3.78 mill/uL (4.20-5.40); White Blood Cell (WBC) Count 10.3 thou/uL (4.8-10.8)
[2020-10-20] MEDS: HumaLOG 300 UNITS/3 ML VIAL SC PRN ×3 (06:05→17:11)
[2020-10-20 06:27] LABS: Phosphorus 5.5 mg/dL (2.3-4.7)
[2020-10-20 06:43] LABS: Anion Gap 18 mmol/L (10-20); BUN (Urea Nitrogen) 29 mg/dL (9.8-20.1); Calc. Creatinine Clearance 34 mL/min (70-130); Calcium 8.6 mg/dL (7.8-10.44); Carbon Dioxide 24 mmol/L (23-31); Cardiac Risk 2.8 (Less than 4.5); Chloride 100 mmol/L (98-107); Cholesterol 199 mg/dl (< 200 Desired); Glucose 373 mg/dL (83-110); HDL Cholesterol 72 mg/dL (>60 Neg Risk); LDL Cholesterol, Calculated 104 mg/dL; Potassium 5.8 mmol/L (3.5-5.1); Sodium 136 mmol/L (136-145); Triglycerides 116 mg/dL (Less than 150)
[2020-10-20] MEDS ORDERED: Fentanyl 100 MCG/2 ML VIAL ONE (07:09)
[2020-10-20] MEDS: Gabapentin 300 MG CAP PO SCH ×3 (07:44→20:41)
[2020-10-20] MEDS: Polyethylene Glycol 3350 17 GM Packet PO SCH (07:44)
[2020-10-20] MEDS ORDERED: Lactated Ringer's 250 ML IV SCH (07:45)
[2020-10-20] MEDS ORDERED: Clindamycin/D5W 900 mg/50 ml Premix Bag ONE (07:52)
[2020-10-20] MEDS ORDERED: Lactated Ringer's 1,000 ML IV SCH ×2 (08:15→08:45)
[2020-10-20] MEDS ORDERED: Lactated Ringer's 500 ML IV SCH (08:15)
[2020-10-20] MEDS ORDERED: ePHEDrine 50 MG/ML VIAL ONE (08:28)
[2020-10-20] MEDS ORDERED: PHENYLEPHRINE-NS 100 MCG/ML 10 ML SYRINGE ONE (08:28)
[2020-10-20] MEDS ORDERED: Glycopyrrolate 0.2 MG/ML 5 ML SYRINGE ONE (08:28)
[2020-10-20] MEDS ORDERED: PROPOFOL 200 MG/20 ML VIAL ONE (08:28)
[2020-10-20] MEDS ORDERED: Ondansetron PF 4 MG/2 ML Vial ONE (08:28)
[2020-10-20] MEDS ORDERED: Lidocaine 1% PF 5 ML VIAL ONE (08:28)
[2020-10-20] MEDS ORDERED: Dexamethasone 20 MG/5 ML VIAL ONE (08:28)
[2020-10-20] MEDS ORDERED: Rocuronium Bromide 10 MG/ML (10ML VIAL) ONE (08:28)
[2020-10-20] MEDS ORDERED: SUGAMMADEX SODIUM 200 MG/2 ML VIAL ONE (09:10)
[2020-10-20] MEDS: Docusate 100 MG CAP PO SCH (11:26)
[2020-10-20] MEDS: Famotidine 20 MG TAB PO SCH (11:26)
[2020-10-20] MEDS: Magnesium Oxide 400 MG TAB PO SCH (11:26)
[2020-10-20] MEDS ORDERED: Losartan 25 MG TAB PO SCH (12:00)
[2020-10-20] MEDS ORDERED: Docusate 100 MG CAP PO SCH (12:00)
[2020-10-20] MEDS ORDERED: Tamsulosin HCl 0.4 MG CAP PO SCH (12:00)
[2020-10-20] MEDS: Clindamycin/D5W 900 MG in Premix Bag 1 BAG IVPB SCH ×2 (14:45→20:54)
[2020-10-20] MEDS: Mirtazapine 15 MG TAB PO SCH (20:42)
[2020-10-20] MEDS: Lantus 1000 UNITS/10 ML VIAL SC SCH (22:35)
[2020-10-21] MEDS: traMADol HCl 50 MG TAB PO SCH ×5 (00:47→17:28)
[2020-10-21] MEDS: Acetaminophen 325 MG TAB PO SCH ×4 (00:47→17:28)
[2020-10-21] MEDS: Levothyroxine Sodium 88 MCG TAB PO SCH (05:03)
[2020-10-21 05:40] LABS: #Eosinphils 0.1 thou/uL (0.0-0.7); #Lymphocytes 1.9 thou/uL (1.20-3.40); #Monocytes 0.6 thou/uL (0.11-0.59); #Neutrophils 5.2 thou/uL (1.40-6.50); %Basophils 0.3 % (0.0-1.0); %Eosinophils 0.8 % (0.0-10.0); %Lymphocytes 24.6 % (21.0-51.0); %Monocytes 7.1 % (0.0-10.0); %Neutrophils 67.1 % (42.0-75.0); Hemoglobin 9.5 g/dL (12.0-16.0); Mean Corpuscular HGB CONC 33.4 g/dL (32.0-36.0); Mean Corpuscular Hemoglobin 32.7 pg (27.0-31.0); Mean Corpuscular Volume 97.9 fL (78.0-98.0); Mean Platelet Volume 7.6 fL (7.4-10.4); Platelet Count 130 thou/uL (130-400); RBC Distribution Width 11.9 % (11.5-14.5); Red Blood Cell (RBC) Count 2.89 mill/uL (4.20-5.40); White Blood Cell (WBC) Count 7.8 thou/uL (4.8-10.8)
[2020-10-21] MEDS: HumaLOG 300 UNITS/3 ML VIAL SC PRN ×4 (05:56→20:32)
[2020-10-21 05:57] LABS: Anion Gap 10 mmol/L (10-20); BUN (Urea Nitrogen) 33 mg/dL (9.8-20.1); Calc. Creatinine Clearance 37 mL/min (70-130); Calcium 8.3 mg/dL (7.8-10.44); Carbon Dioxide 29 mmol/L (23-31); Chloride 98 mmol/L (98-107); Glucose 272 mg/dL (83-110); Magnesium 1.8 mg/dL (1.6-2.6); Phosphorus 4.4 mg/dL (2.3-4.7); Potassium 4.9 mmol/L (3.5-5.1); Sodium 132 mmol/L (136-145)
[2020-10-21] MEDS ORDERED: Magnesium 2 GM/50 ML 2 GM in Premix Bag 1 BAG IVPB SCH (07:00)
[2020-10-21] MEDS: Polyethylene Glycol 3350 17 GM Packet PO SCH (07:59)
[2020-10-21] MEDS: Aspirin 81 mg Enteric Coated Tablet PO SCH ×2 (07:59→20:23)
[2020-10-21] MEDS: Gabapentin 300 MG CAP PO SCH ×3 (08:03→20:24)
[2020-10-21] MEDS ORDERED: Sodium Chloride 0.9% 500 ML IV SCH (08:15)
[2020-10-21] MEDS ORDERED: Hydrocortisone Sod Succ/PF 100 mg/2 ml Vial IVP SCH (08:30)
[2020-10-21] MEDS: Famotidine 20 MG TAB PO SCH (11:16)
[2020-10-21] MEDS: Tamsulosin HCl 0.4 MG CAP PO SCH (11:16)
[2020-10-21] MEDS: Magnesium Oxide 400 MG TAB PO SCH (11:16)
[2020-10-21] MEDS: Docusate 100 MG CAP PO SCH (11:16)
[2020-10-21] MEDS: Ondansetron PF 4 MG/2 ML Vial IVP PRN (11:53)
[2020-10-21] MEDS: Hydrocortisone Sod Succ/PF 100 mg/2 ml Vial IVP SCH ×2 (14:45→20:23)
[2020-10-21] MEDS: Mirtazapine 15 MG TAB PO SCH (20:24)
[2020-10-21] MEDS: Lantus 1000 UNITS/10 ML VIAL SC SCH (20:32)
[2020-10-22] MEDS: Acetaminophen 325 MG TAB PO SCH ×5 (00:29→23:09)
[2020-10-22] MEDS: traMADol HCl 50 MG TAB PO SCH ×3 (00:29→11:29)
[2020-10-22] MEDS: Hydrocortisone Sod Succ/PF 100 mg/2 ml Vial IVP SCH ×4 (03:15→19:53)
[2020-10-22] MEDS: Levothyroxine Sodium 88 MCG TAB PO SCH (05:31)
[2020-10-22] MEDS: HumaLOG 300 UNITS/3 ML VIAL SC PRN ×4 (05:32→21:40)
[2020-10-22] MEDS: Aspirin 81 mg Enteric Coated Tablet PO SCH ×2 (08:37→19:52)
[2020-10-22] MEDS: Gabapentin 300 MG CAP PO SCH ×3 (08:38→19:52)
[2020-10-22] MEDS: Polyethylene Glycol 3350 17 GM Packet PO SCH (08:38)
[2020-10-22] MEDS ORDERED: Losartan 25 MG TAB PO SCH ×2 (09:00→15:45)
[2020-10-22] MEDS: Famotidine 20 MG TAB PO SCH (11:28)
[2020-10-22] MEDS: Magnesium Oxide 400 MG TAB PO SCH (11:29)
[2020-10-22] MEDS: Tamsulosin HCl 0.4 MG CAP PO SCH (11:29)
[2020-10-22] MEDS: Docusate 100 MG CAP PO SCH (11:29)
[2020-10-22] MEDS ORDERED: traMADol HCl 50 MG TAB PO PRN (13:11)
[2020-10-22] MEDS: Mirtazapine 15 MG TAB PO SCH (19:53)
[2020-10-22] MEDS: Lantus 1000 UNITS/10 ML VIAL SC SCH (21:40)
[2020-10-23] MEDS: traMADol HCl 50 MG TAB PO PRN ×2 (01:40→07:40)
[2020-10-23] MEDS: Hydrocortisone Sod Succ/PF 100 mg/2 ml Vial IVP SCH ×2 (02:47→08:24)
[2020-10-23] MEDS: Levothyroxine Sodium 88 MCG TAB PO SCH (05:29)
[2020-10-23] MEDS: Acetaminophen 325 MG TAB PO SCH ×4 (05:29→23:15)
[2020-10-23] MEDS: HumaLOG 300 UNITS/3 ML VIAL SC PRN ×4 (05:33→20:43)
[2020-10-23 08:22] LABS: Anion Gap 11 mmol/L (10-20); BUN (Urea Nitrogen) 36 mg/dL (9.8-20.1); Calc. Creatinine Clearance 52 mL/min (70-130); Calcium 8.9 mg/dL (7.8-10.44); Carbon Dioxide 30 mmol/L (23-31); Chloride 101 mmol/L (98-107); Glucose 206 mg/dL (83-110); Potassium 5.8 mmol/L (3.5-5.1); Sodium 136 mmol/L (136-145)
[2020-10-23] MEDS: Polyethylene Glycol 3350 17 GM Packet PO SCH (08:24)
[2020-10-23] MEDS: Aspirin 81 mg Enteric Coated Tablet PO SCH ×2 (08:25→20:42)
[2020-10-23] MEDS: Losartan 25 MG TAB PO SCH (08:26)
[2020-10-23] MEDS: Gabapentin 300 MG CAP PO SCH ×2 (08:27→20:41)
[2020-10-23] MEDS: Famotidine 20 MG TAB PO SCH (11:28)
[2020-10-23] MEDS: Tamsulosin HCl 0.4 MG CAP PO SCH (11:28)
[2020-10-23] MEDS: Magnesium Oxide 400 MG TAB PO SCH (11:28)
[2020-10-23] MEDS: Docusate 100 MG CAP PO SCH (12:03)
[2020-10-23] MEDS: Mirtazapine 15 MG TAB PO SCH (20:40)
[2020-10-23] MEDS ORDERED: Lantus 1000 UNITS/10 ML VIAL SC SCH (21:00)
[2020-10-24] MEDS: Levothyroxine Sodium 88 MCG TAB PO SCH (05:28)
[2020-10-24] MEDS: Acetaminophen 325 MG TAB PO SCH ×2 (05:28→11:09)
[2020-10-24] MEDS ORDERED: Amlodipine 5 MG TAB PO SCH ×2 (09:00)
[2020-10-24] MEDS: Gabapentin 300 MG CAP PO SCH (09:06)
[2020-10-24] MEDS: Aspirin 81 mg Enteric Coated Tablet PO SCH (09:06)
[2020-10-24] MEDS: Losartan 25 MG TAB PO SCH (09:06)
[2020-10-24] MEDS: Polyethylene Glycol 3350 17 GM Packet PO SCH (09:07)
[2020-10-24 09:15] LABS: Anion Gap 8 mmol/L (10-20); BUN (Urea Nitrogen) 38 mg/dL (9.8-20.1); Calc. Creatinine Clearance 59 mL/min (70-130); Carbon Dioxide 35 mmol/L (23-31); Chloride 99 mmol/L (98-107); Glucose 128 mg/dL (83-110); Potassium 4.8 mmol/L (3.5-5.1); Sodium 137 mmol/L (136-145)
[2020-10-24] MEDS: Famotidine 20 MG TAB PO SCH (11:09)
[2020-10-24] MEDS: Magnesium Oxide 400 MG TAB PO SCH (11:10)
[2020-10-24] MEDS: Docusate 100 MG CAP PO SCH (11:10)
[2020-10-24] MEDS: Tamsulosin HCl 0.4 MG CAP PO SCH (11:10)
[2020-10-24] MEDS: HumaLOG 300 UNITS/3 ML VIAL SC PRN ×2 (11:15→15:42)
[2020-10-24 16:20] VITALS: BP 148/65; TEMP 97.7
== END 2020-10-24 16:56 | disposition swing bed (61) | DRG 481 ==
LOC: ERS 04:43 → SURG A 05:46
PROVIDERS: ADMIT Surgery; ATTEND Surgery
PROC: 0QH734Z Insertion of Internal Fixation Device into Left Upper Femur, Percutaneous Approach (ICD-10-PCS; principal; 2020-10-20)
DX: S72.142A Displaced intertrochanteric fracture of left femur, initial encounter for closed fracture (principal); N17.9 Acute kidney failure, unspecified; I45.2 Bifascicular block; E87.1 Hypo-osmolality and hyponatremia; Z20.822 Contact with and (suspected) exposure to COVID-19; W05.0XXA Fall from non-moving wheelchair, initial encounter; E03.9 Hypothyroidism, unspecified; E78.5 Hyperlipidemia, unspecified; E78.00 Pure hypercholesterolemia, unspecified; I10 Essential (primary) hypertension; E11.40 Type 2 diabetes mellitus with diabetic neuropathy, unspecified; F41.9 Anxiety disorder, unspecified; I45.10 Unspecified right bundle-branch block; I35.0 Nonrheumatic aortic (valve) stenosis; E66.9 Obesity, unspecified; E11.65 Type 2 diabetes mellitus with hyperglycemia; E87.5 Hyperkalemia; K59.00 Constipation, unspecified; Z90.49 Acquired absence of other specified parts of digestive tract; Z90.710 Acquired absence of both cervix and uterus; Z88.0 Allergy status to penicillin; Z88.5 Allergy status to narcotic agent; Z88.8 Allergy status to other drugs, medicaments and biological substances; Z79.890 Hormone replacement therapy; Z79.4 Long term (current) use of insulin; Z79.899 Other long term (current) drug therapy; Z68.29 Body mass index [BMI] 29.0-29.9, adult; I25.2 Old myocardial infarction
CPT/HCPCS: 36415; 36416; 70450; 71045; 76000; 80048; 80053; 80061; 82533; 82553; 83735; 84100; 84484; 85025; 93005; 93010; 93306; 94640; 96374; 96375; C1713; G0390; J1100; J1720; J1815; J2405; J2704; J3010; J3475; J3490; J7120; J7620; P9045; U0002

== ENCOUNTER 2021-01-19 15:47 | Inpatient (IN) | payer MEDICARE ==
[~2021-01-19 15:47] MED LIST changes: -Acetaminophen 325 MG TAB PO PRN; +Iopamidol-370 76% 500 ML 1 ML ONE; -Ondansetron ODT 4 MG TAB SL PRN; -Ondansetron PF 4 MG/2 ML Vial IVP PRN
[2021-01-19] MEDS ORDERED: Norepinephrine 8 MG/0.9% NS 250 ML ONE (15:53)
[2021-01-19] MEDS ORDERED: Piperacillin/Tazobactam 3.375 GM VIAL ONE (15:56)
[2021-01-19] MEDS ORDERED: Vancomycin 1 GM/200 ML BAG ONE (15:56)
[2021-01-19 16:20] LABS: #Eosinphils 0.1 thou/uL (0.0-0.7); #Lymphocytes 1.3 thou/uL (1.20-3.40); #Monocytes 0.3 thou/uL (0.11-0.59); %Basophils 0.4 % (0.0-1.0); %Lymphocytes 19.2 % (21.0-51.0); %Monocytes 3.9 % (0.0-10.0); %Neutrophils 75.5 % (42.0-75.0); Hemoglobin 11.1 g/dL (12.0-16.0); Mean Corpuscular HGB CONC 32.6 g/dL (32.0-36.0); Mean Corpuscular Hemoglobin 31.3 pg (27.0-31.0); Mean Corpuscular Volume 96.1 fL (78.0-98.0); Platelet Count 191 thou/uL (130-400); Red Blood Cell (RBC) Count 3.55 mill/uL (4.20-5.40); White Blood Cell (WBC) Count 6.6 thou/uL (4.8-10.8)
[2021-01-19 16:23] LABS: Bacteria/HPF 4+ HPF (None Seen); Bilirubin Negative (Negative); Blood, Urine 1+ (Negative); Clarity Extra Turbid (Clear); Glucose, Urine (Dipstick) Normal (Negative); Ketone, Urine Negative (Negative); Leukocyte 500 Leu/uL (Negative); Nitrite Negative (Negative); Protein, Urine (Dipstick) 20 mg/dL (Neg-Trace); RBC/HPF 0-3 HPF (0-3); Specific Gravity, Urine 1.008 (1.002-1.036); Squamous Epithelial 0-3 HPF (0-3); Urobilinogen Normal mg/dL (Less than 2); WBC/HPF Greater than 50 HPF (0-3)
[2021-01-19 16:32] LABS: INR-International Normal Ratio 1.1; Prothrombin Time 14.5 sec (12.0-14.7)
[2021-01-19 16:33] LABS: PTT 34.6 sec (22.9-36.1)
[2021-01-19 16:35] LABS: ALT (SGPT) Less than 7 U/L (8-55); AST (SGOT) 14 U/L (5-34); Albumin 3.3 g/dL (3.4-4.8); Alkaline Phosphatase 112 U/L (40-110); Anion Gap 14 mmol/L (10-20); BUN (Urea Nitrogen) 24 mg/dL (9.8-20.1); Bilirubin, Total 0.5 mg/dL (0.2-1.2); Calc. Creatinine Clearance 0 mL/min (70-130); Calcium 8.8 mg/dL (7.8-10.44); Carbon Dioxide 23 mmol/L (23-31); Chloride 102 mmol/L (98-107); Globulin 3.9 g/dL (2.4-3.5); Glucose 232 mg/dL (83-110); Potassium 4.8 mmol/L (3.5-5.1); Protein, Total 7.2 g/dL (5.8-8.1); Sodium 134 mmol/L (136-145)
[2021-01-19 16:40] LABS: Troponin I 0.016 ng/mL (< 0.028)
[2021-01-19 17:23] LABS: SARS-CoV-2 NAA Rapid Test Not Detected (NotDetected)
[2021-01-19] MEDS ORDERED: Melatonin 3 MG TAB PO PRN (21:27)
[2021-01-19] MEDS ORDERED: hydrALAZINE 20 MG/ML VIAL SLOW IVP PRN (21:27)
[2021-01-19] MEDS ORDERED: cloNIDine 0.1 MG TAB PO PRN (21:27)
[2021-01-19] MEDS ORDERED: Labetalol HCl 100 MG/20 ML VIAL SLOW IVP PRN (21:27)
[2021-01-19] MEDS ORDERED: Promethazine HCl 12.5 MG in Sodium Chloride 0.9% 50 ML IVPB PRN (21:27)
[2021-01-19] MEDS ORDERED: HYDROcodone/Acetaminophen 5/325 mg Tablet PO PRN (21:27)
[2021-01-19] MEDS ORDERED: Acetaminophen 325 MG TAB PO PRN (21:27)
[2021-01-19] MEDS ORDERED: Ondansetron PF 4 MG/2 ML Vial IVP PRN (21:27)
[2021-01-19] MEDS ORDERED: Morphine 2 MG/ML VIAL SLOW IVP PRN (21:27)
[2021-01-19] MEDS ORDERED: Guaifenesin DM 100-10/5 ML UDCUP PO PRN (21:27)
[2021-01-19] MEDS ORDERED: Electrolyte Replacement Protocol 1 EACH FS PRN (21:30)
[2021-01-19] MEDS: Sodium Chloride 0.9% 1,000 ML IV SCH (21:42)
[2021-01-19 21:46] LABS: Troponin I 0.014 ng/mL (< 0.028)
[2021-01-19 23:23] VITALS: BMI 31.1
[2021-01-20 00:25] LABS: Troponin I 0.018 ng/mL (< 0.028)
[2021-01-20] MEDS ORDERED: HumaLOG 300 UNITS/3 ML VIAL SC PRN (03:51)
[2021-01-20 04:28] LABS: #Basophils 0.1 thou/uL (0.0-0.2); #Eosinphils 0.2 thou/uL (0.0-0.7); #Lymphocytes 1.3 thou/uL (1.20-3.40); #Monocytes 0.3 thou/uL (0.11-0.59); #Neutrophils 3.8 thou/uL (1.40-6.50); %Basophils 2.3 % (0.0-1.0); %Eosinophils 2.8 % (0.0-10.0); %Lymphocytes 22.8 % (21.0-51.0); %Neutrophils 66.1 % (42.0-75.0); Hemoglobin 9.6 g/dL (12.0-16.0); Mean Corpuscular Hemoglobin 31.9 pg (27.0-31.0); Mean Corpuscular Volume 96.7 fL (78.0-98.0); Mean Platelet Volume 7.1 fL (7.4-10.4); Platelet Count 184 thou/uL (130-400); RBC Distribution Width 13.1 % (11.5-14.5); Red Blood Cell (RBC) Count 3.01 mill/uL (4.20-5.40); White Blood Cell (WBC) Count 5.7 thou/uL (4.8-10.8)
[2021-01-20 04:50] LABS: Anion Gap 11 mmol/L (10-20); BUN (Urea Nitrogen) 20 mg/dL (9.8-20.1); Calc. Creatinine Clearance 59 mL/min (70-130); Calcium 7.8 mg/dL (7.8-10.44); Carbon Dioxide 26 mmol/L (23-31); Chloride 109 mmol/L (98-107); Glucose 191 mg/dL (83-110); Magnesium 1.6 mg/dL (1.6-2.6); Potassium 4.1 mmol/L (3.5-5.1); Sodium 142 mmol/L (136-145)
[2021-01-20] MEDS ORDERED: Magnesium 2 GM/50 ML 2 GM in Premix Bag 1 BAG IVPB SCH (05:00)
[2021-01-20] MEDS: HumaLOG 300 UNITS/3 ML VIAL SC PRN ×3 (07:03→17:09)
[2021-01-20] MEDS: Sodium Chloride 0.9% 1,000 ML IV SCH (08:37)
[2021-01-20] MEDS: Heparin 5,000 UNITS/ML VIAL SC SCH ×2 (08:37→21:15)
[2021-01-20] MEDS: Polyethylene Glycol 3350 17 GM Packet PO SCH (08:40)
[2021-01-20] MEDS ORDERED: Famotidine 20 MG TAB PO SCH (09:00)
[2021-01-20] MEDS ORDERED: Polyethylene Glycol 3350 17 GM Packet PO PRN (13:12)
[2021-01-20] MEDS ORDERED: Zinc Oxide 20% Oint 30 GM TUBE TOP PRN (13:12)
[2021-01-20] MEDS ORDERED: Non-Formulary Item 1 EACH (Ranolazine [Ranexa] 1,000 MG Tab.Er.12h) PO SCH (21:00)
[2021-01-20] MEDS ORDERED: Non-Formulary Item 1 EACH (Insulin Detemir [Levemir] 100 UNIT/ML Vial) SQ SCH (21:00)
[2021-01-20] MEDS ORDERED: Bisacodyl 10 MG SUPP PR PRN (21:05)
[2021-01-20] MEDS: Amlodipine 5 MG TAB PO SCH (21:14)
[2021-01-20] MEDS: Gabapentin 300 MG CAP PO SCH (21:14)
[2021-01-20] MEDS: Famotidine 20 MG TAB PO SCH (21:15)
[2021-01-20] MEDS: Aspirin 81 mg Enteric Coated Tablet PO SCH (21:15)
[2021-01-20] MEDS: Lantus 1000 UNITS/10 ML VIAL SC SCH (21:15)
[2021-01-20] MEDS: Mirtazapine 15 MG TAB PO SCH (21:16)
[2021-01-20] MEDS: cefTRIAXone\\ROCEPHIN 1 GM in Sodium Chloride 0.9% 100 ML IVPB SCH (21:48)
[2021-01-21 05:37] LABS: #Eosinphils 0.4 thou/uL (0.0-0.7); #Lymphocytes 1.7 thou/uL (1.20-3.40); #Monocytes 0.4 thou/uL (0.11-0.59); #Neutrophils 3.9 thou/uL (1.40-6.50); %Basophils 0.6 % (0.0-1.0); %Eosinophils 6.2 % (0.0-10.0); %Lymphocytes 26.2 % (21.0-51.0); %Monocytes 6.8 % (0.0-10.0); %Neutrophils 60.2 % (42.0-75.0); Hemoglobin 10.3 g/dL (12.0-16.0); Mean Corpuscular HGB CONC 32.4 g/dL (32.0-36.0); Mean Corpuscular Hemoglobin 31.5 pg (27.0-31.0); Mean Corpuscular Volume 97.1 fL (78.0-98.0); Mean Platelet Volume 7.1 fL (7.4-10.4); Platelet Count 198 thou/uL (130-400); Red Blood Cell (RBC) Count 3.28 mill/uL (4.20-5.40); White Blood Cell (WBC) Count 6.5 thou/uL (4.8-10.8)
[2021-01-21 06:00] LABS: Anion Gap 11 mmol/L (10-20); BUN (Urea Nitrogen) 13 mg/dL (9.8-20.1); Calc. Creatinine Clearance 63 mL/min (70-130); Calcium 8.7 mg/dL (7.8-10.44); Carbon Dioxide 29 mmol/L (23-31); Chloride 108 mmol/L (98-107); Glucose 134 mg/dL (83-110); Magnesium 1.7 mg/dL (1.6-2.6); Potassium 3.8 mmol/L (3.5-5.1); Sodium 144 mmol/L (136-145)
[2021-01-21] MEDS ORDERED: Levothyroxine Sodium 100 MCG TAB PO SCH (06:00)
[2021-01-21] MEDS ORDERED: Magnesium 2 GM/50 ML 2 GM in Premix Bag 1 BAG IVPB SCH (06:45)
[2021-01-21] MEDS: Levothyroxine Sodium 88 MCG TAB PO SCH (07:16)
[2021-01-21] MEDS: Famotidine 20 MG TAB PO SCH ×2 (08:14→20:27)
[2021-01-21] MEDS: Heparin 5,000 UNITS/ML VIAL SC SCH ×2 (08:14→20:26)
[2021-01-21] MEDS: Docusate 100 MG CAP PO SCH (08:14)
[2021-01-21] MEDS: Magnesium Oxide 400 MG TAB PO SCH (08:14)
[2021-01-21] MEDS: Gabapentin 300 MG CAP PO SCH ×2 (08:14→20:27)
[2021-01-21] MEDS ORDERED: Loperamide HCl 2 MG CAP PO PRN (08:17)
[2021-01-21] MEDS ORDERED: GUAIFENESIN SF SOLN 200 MG/10 ML UDCUP PO PRN (08:17)
[2021-01-21] MEDS ORDERED: Sodium Chloride 0.65% Nasal 44 ML BOT EA NARE PRN (08:17)
[2021-01-21] MEDS ORDERED: Calcium Carbonate 500 MG ChewTAB PO PRN (08:17)
[2021-01-21] MEDS ORDERED: Ondansetron ODT 4 MG TAB SL PRN (08:17)
[2021-01-21] MEDS ORDERED: Senokot S 8.6-50 MG TAB PO PRN (08:17)
[2021-01-21] MEDS ORDERED: Cepastat Lozenges 1 LOZ PO PRN (08:17)
[2021-01-21] MEDS ORDERED: Loratadine 10 MG TAB PO PRN (08:17)
[2021-01-21] MEDS ORDERED: hydrALAZINE 20 MG/ML VIAL SLOW IVP PRN (08:18)
[2021-01-21] MEDS: Polyethylene Glycol 3350 17 GM Packet PO SCH (08:47)
[2021-01-21] MEDS: Aspirin 81 mg Enteric Coated Tablet PO SCH ×2 (08:47→20:26)
[2021-01-21] MEDS ORDERED: Non-Formulary Item 1 EACH (Magnesium Oxide [Magnesium Oxide] 400 MG Tablet) PO SCH (09:00)
[2021-01-21] MEDS ORDERED: Non-Formulary Item 1 EACH (Sertraline Hcl [Sertraline Hcl] 50 MG Tablet) PO SCH (09:00)
[2021-01-21] MEDS: HumaLOG 300 UNITS/3 ML VIAL SC PRN (17:18)
[2021-01-21] MEDS: Mirtazapine 15 MG TAB PO SCH (20:26)
[2021-01-21] MEDS: Amlodipine 5 MG TAB PO SCH (20:27)
[2021-01-21] MEDS: Lantus 1000 UNITS/10 ML VIAL SC SCH (20:28)
[2021-01-21] MEDS: cefTRIAXone\\ROCEPHIN 1 GM in Sodium Chloride 0.9% 100 ML IVPB SCH (21:06)
[2021-01-22 03:57] LABS: #Eosinphils 0.4 thou/uL (0.0-0.7); #Lymphocytes 2.1 thou/uL (1.20-3.40); #Monocytes 0.4 thou/uL (0.11-0.59); #Neutrophils 3.1 thou/uL (1.40-6.50); %Basophils 0.4 % (0.0-1.0); %Eosinophils 7.3 % (0.0-10.0); %Lymphocytes 34.4 % (21.0-51.0); %Monocytes 6.6 % (0.0-10.0); %Neutrophils 51.3 % (42.0-75.0); Hemoglobin 9.5 g/dL (12.0-16.0); Mean Corpuscular HGB CONC 33.1 g/dL (32.0-36.0); Mean Corpuscular Hemoglobin 32.1 pg (27.0-31.0); Mean Corpuscular Volume 96.9 fL (78.0-98.0); Mean Platelet Volume 6.8 fL (7.4-10.4); Platelet Count 186 thou/uL (130-400); RBC Distribution Width 12.9 % (11.5-14.5); Red Blood Cell (RBC) Count 2.97 mill/uL (4.20-5.40)
[2021-01-22 04:15] LABS: Anion Gap 8 mmol/L (10-20); BUN (Urea Nitrogen) 14 mg/dL (9.8-20.1); Calc. Creatinine Clearance 65 mL/min (70-130); Calcium 8.6 mg/dL (7.8-10.44); Carbon Dioxide 32 mmol/L (23-31); Chloride 104 mmol/L (98-107); Glucose 127 mg/dL (83-110); Magnesium 1.9 mg/dL (1.6-2.6); Potassium 4.1 mmol/L (3.5-5.1); Sodium 140 mmol/L (136-145)
[2021-01-22] MEDS: Levothyroxine Sodium 88 MCG TAB PO SCH (05:45)
[2021-01-22] MEDS: Heparin 5,000 UNITS/ML VIAL SC SCH ×2 (09:03→20:31)
[2021-01-22] MEDS: Magnesium Oxide 400 MG TAB PO SCH (09:04)
[2021-01-22] MEDS: Docusate 100 MG CAP PO SCH (09:05)
[2021-01-22] MEDS: Ferrous Sulfate 325 MG TAB PO SCH (09:05)
[2021-01-22] MEDS: Gabapentin 300 MG CAP PO SCH ×2 (09:06→20:29)
[2021-01-22] MEDS: Aspirin 81 mg Enteric Coated Tablet PO SCH ×2 (09:06→20:30)
[2021-01-22] MEDS: Polyethylene Glycol 3350 17 GM Packet PO SCH (09:06)
[2021-01-22] MEDS: Famotidine 20 MG TAB PO SCH ×2 (09:06→20:31)
[2021-01-22] MEDS: HumaLOG 300 UNITS/3 ML VIAL SC PRN (18:13)
[2021-01-22] MEDS: Mirtazapine 15 MG TAB PO SCH (20:30)
[2021-01-22] MEDS: Amlodipine 5 MG TAB PO SCH (20:30)
[2021-01-22] MEDS: Lantus 1000 UNITS/10 ML VIAL SC SCH (20:32)
[2021-01-22] MEDS: Nystatin Powder 15 GM BOT TOP SCH (20:42)
[2021-01-23 03:34] LABS: #Eosinphils 0.5 thou/uL (0.0-0.7); #Lymphocytes 1.9 thou/uL (1.20-3.40); #Monocytes 0.4 thou/uL (0.11-0.59); %Basophils 0.1 % (0.0-1.0); %Eosinophils 8.1 % (0.0-10.0); %Monocytes 6.8 % (0.0-10.0); %Neutrophils 51.9 % (42.0-75.0); Hemoglobin 10.5 g/dL (12.0-16.0); Mean Corpuscular HGB CONC 33.6 g/dL (32.0-36.0); Mean Corpuscular Hemoglobin 32.3 pg (27.0-31.0); Mean Platelet Volume 6.8 fL (7.4-10.4); Platelet Count 195 thou/uL (130-400); RBC Distribution Width 12.9 % (11.5-14.5); Red Blood Cell (RBC) Count 3.24 mill/uL (4.20-5.40); White Blood Cell (WBC) Count 5.8 thou/uL (4.8-10.8)
[2021-01-23 03:47] LABS: Anion Gap 9 mmol/L (10-20); BUN (Urea Nitrogen) 14 mg/dL (9.8-20.1); Calc. Creatinine Clearance 57 mL/min (70-130); Carbon Dioxide 34 mmol/L (23-31); Chloride 100 mmol/L (98-107); Glucose 164 mg/dL (83-110); Potassium 3.9 mmol/L (3.5-5.1); Sodium 139 mmol/L (136-145)
[2021-01-23] MEDS: Levothyroxine Sodium 88 MCG TAB PO SCH (06:18)
[2021-01-23] MEDS: Gabapentin 300 MG CAP PO SCH ×2 (10:06→22:09)
[2021-01-23] MEDS: Magnesium Oxide 400 MG TAB PO SCH (10:06)
[2021-01-23] MEDS: Famotidine 20 MG TAB PO SCH ×2 (10:06→22:09)
[2021-01-23] MEDS: Nystatin Powder 15 GM BOT TOP SCH ×2 (10:07→22:10)
[2021-01-23] MEDS: Aspirin 81 mg Enteric Coated Tablet PO SCH ×2 (10:07→22:09)
[2021-01-23] MEDS: Heparin 5,000 UNITS/ML VIAL SC SCH ×2 (10:07→22:10)
[2021-01-23] MEDS: Docusate 100 MG CAP PO SCH (10:07)
[2021-01-23] MEDS: Ferrous Sulfate 325 MG TAB PO SCH (10:07)
[2021-01-23] MEDS: Polyethylene Glycol 3350 17 GM Packet PO SCH (10:08)
[2021-01-23] MEDS: HumaLOG 300 UNITS/3 ML VIAL SC PRN (17:54)
[2021-01-23] MEDS: Amlodipine 5 MG TAB PO SCH (22:09)
[2021-01-23] MEDS: Mirtazapine 15 MG TAB PO SCH (22:09)
[2021-01-23] MEDS: Lantus 1000 UNITS/10 ML VIAL SC SCH (22:13)
[2021-01-24] MEDS: Levothyroxine Sodium 88 MCG TAB PO SCH (07:31)
[2021-01-24] MEDS: Polyethylene Glycol 3350 17 GM Packet PO SCH (08:46)
[2021-01-24] MEDS: Famotidine 20 MG TAB PO SCH ×2 (08:46→20:57)
[2021-01-24] MEDS: Magnesium Oxide 400 MG TAB PO SCH (08:47)
[2021-01-24] MEDS: Nystatin Powder 15 GM BOT TOP SCH ×2 (08:47→21:02)
[2021-01-24] MEDS: Ferrous Sulfate 325 MG TAB PO SCH (08:47)
[2021-01-24] MEDS: Docusate 100 MG CAP PO SCH (08:47)
[2021-01-24] MEDS: Gabapentin 300 MG CAP PO SCH ×2 (08:47→20:57)
[2021-01-24] MEDS: Heparin 5,000 UNITS/ML VIAL SC SCH ×2 (08:47→21:00)
[2021-01-24] MEDS: Aspirin 81 mg Enteric Coated Tablet PO SCH ×2 (08:47→20:56)
[2021-01-24] MEDS: HumaLOG 300 UNITS/3 ML VIAL SC PRN (12:07)
[2021-01-24] MEDS: Mirtazapine 15 MG TAB PO SCH (20:56)
[2021-01-24] MEDS: Amlodipine 5 MG TAB PO SCH (20:57)
[2021-01-24] MEDS: Lantus 1000 UNITS/10 ML VIAL SC SCH (20:59)
[2021-01-25 04:05] LABS: #Eosinphils 0.3 thou/uL (0.0-0.7); #Monocytes 0.4 thou/uL (0.11-0.59); #Neutrophils 3.1 thou/uL (1.40-6.50); %Basophils 0.8 % (0.0-1.0); %Eosinophils 5.4 % (0.0-10.0); %Lymphocytes 34.3 % (21.0-51.0); %Neutrophils 52.6 % (42.0-75.0); Hemoglobin 11.4 g/dL (12.0-16.0); Mean Corpuscular HGB CONC 32.1 g/dL (32.0-36.0); Mean Corpuscular Hemoglobin 30.9 pg (27.0-31.0); Mean Corpuscular Volume 96.2 fL (78.0-98.0); Mean Platelet Volume 6.8 fL (7.4-10.4); Platelet Count 200 thou/uL (130-400); RBC Distribution Width 13.3 % (11.5-14.5); White Blood Cell (WBC) Count 5.9 thou/uL (4.8-10.8)
[2021-01-25 04:25] LABS: Anion Gap 12 mmol/L (10-20); BUN (Urea Nitrogen) 17 mg/dL (9.8-20.1); Calc. Creatinine Clearance 53 mL/min (70-130); Calcium 9.3 mg/dL (7.8-10.44); Carbon Dioxide 31 mmol/L (23-31); Chloride 100 mmol/L (98-107); Glucose 127 mg/dL (83-110); Sodium 139 mmol/L (136-145)
[2021-01-25] MEDS: Levothyroxine Sodium 88 MCG TAB PO SCH (06:45)
[2021-01-25] MEDS: Magnesium Oxide 400 MG TAB PO SCH (09:00)
[2021-01-25] MEDS: Gabapentin 300 MG CAP PO SCH (09:00)
[2021-01-25] MEDS: Ferrous Sulfate 325 MG TAB PO SCH (09:00)
[2021-01-25] MEDS: Polyethylene Glycol 3350 17 GM Packet PO SCH (09:01)
[2021-01-25] MEDS: Docusate 100 MG CAP PO SCH (09:01)
[2021-01-25] MEDS: Aspirin 81 mg Enteric Coated Tablet PO SCH (09:01)
[2021-01-25] MEDS: Famotidine 20 MG TAB PO SCH (09:01)
[2021-01-25] MEDS: Heparin 5,000 UNITS/ML VIAL SC SCH (09:02)
[2021-01-25] MEDS: Nystatin Powder 15 GM BOT TOP SCH (09:08)
[2021-01-25 12:36] VITALS: BP 142/59; TEMP 98.1
[2021-01-27] MEDS ORDERED: Lactinex Tablet PO SCH (09:00)
== END 2021-01-25 16:30 | DRG 871 ==
LOC: ERS 15:47 → IMCU/EMU 20:46 → ONC 01-24 20:00
PROVIDERS: ADMIT Internal Medicine; ATTEND Emergency Medicine
PROC: 05HM33Z Insertion of Infusion Device into Right Internal Jugular Vein, Percutaneous Approach (ICD-10-PCS; principal; 2021-01-19)
PROC: B543ZZA Ultrasonography of Right Jugular Veins, Guidance (ICD-10-PCS; 2021-01-19)
DX: A41.51 Sepsis due to Escherichia coli [E. coli] (principal); G93.41 Metabolic encephalopathy; R65.21 Severe sepsis with septic shock; J18.9 Pneumonia, unspecified organism; N39.0 Urinary tract infection, site not specified; N17.9 Acute kidney failure, unspecified; I13.0 Hypertensive heart and chronic kidney disease with heart failure and stage 1 through stage 4 chronic kidney disease, or unspecified chronic kidney disease; E78.00 Pure hypercholesterolemia, unspecified; E03.9 Hypothyroidism, unspecified; E11.40 Type 2 diabetes mellitus with diabetic neuropathy, unspecified; I25.5 Ischemic cardiomyopathy; E11.22 Type 2 diabetes mellitus with diabetic chronic kidney disease; N18.31 Chronic kidney disease, stage 3a; I95.9 Hypotension, unspecified; R00.1 Bradycardia, unspecified; E86.0 Dehydration; I25.10 Atherosclerotic heart disease of native coronary artery without angina pectoris; M48.02 Spinal stenosis, cervical region; F41.1 Generalized anxiety disorder; I50.9 Heart failure, unspecified; Z20.822 Contact with and (suspected) exposure to COVID-19; E66.9 Obesity, unspecified; N39.46 Mixed incontinence; Z88.8 Allergy status to other drugs, medicaments and biological substances; I25.2 Old myocardial infarction; Z79.899 Other long term (current) drug therapy; Z79.82 Long term (current) use of aspirin; Z79.4 Long term (current) use of insulin; Z90.49 Acquired absence of other specified parts of digestive tract; Z90.710 Acquired absence of both cervix and uterus; Z98.890 Other specified postprocedural states; Z88.5 Allergy status to narcotic agent; Z88.0 Allergy status to penicillin; Z68.30 Body mass index [BMI] 30.0-30.9, adult
CPT/HCPCS: 0240U; 36415; 36416; 36556; 51702; 70450; 71045; 74177; 80048; 80053; 81003; 81015; 83605; 83735; 83880; 84484; 85025; 85610; 85730; 86850; 86900; 86901; 87040; 87077; 87086; 87186; 93005; 93010; 94760; 96365; 96366; 96368; J0696; J1644; J1815; J1956; J2543; J3370; J3475; J3490; Q9967